=== PATIENT | male | born 1965 | race Caucasian/White ===

== ENCOUNTER 2022-08-04 12:03 | Outpatient (CLI) | payer OTHER, SELFPAY ==
--- OUTSIDE RECORDS SUMMARY | 2022-08-04 12:06 | XMS_ITS | Encounter Summary ---
:1965 Author Organization [facility] Address [address] [place] [address] Care Team Providers Name Role Phone Unavailable Primary Care Provider Unavailable Encounter Details Date Type Department Care Team Description 10/30/2019 Travel Social History Tobacco Use Types Packs/Day Years Used Date Never Smoker Smokeless Tobacco: Never Used Alcohol Use Standard Drinks/Week Comments Not Asked 0 (1 standard drink = 0.6 oz pure alcoho l) Sex Assigned at Date Recorded Not on file documented as of this encounter Plan of Treatment Not on filedocumented as of this encounter Visit Diagnoses Not on filedocumented in this encounter
--- OUTSIDE RECORDS SUMMARY | 2022-08-04 12:06 | XMS_ITS | Encounter Summary ---
:[address] [facility] Address [address] [place] [address] Care Team Providers Name Role Phone Unavailable Primary Care Provider Unavailable Reason for Visit Appointment Request (Routine) - Closed Specialty Diagnoses / Procedures Referred By Contact Refer red To Contact Cardiovascular Surgery Diagnoses Mitral Valve Acquired Disorder Referral ID Status Reason Start Date Expiration Date Visits Requ ested Visits Authorized [id number] Closed 03/11/2022 03/11/2023 1 Encounter Details Date Type Department Care Team Description 03/17/2022 Virtual Visit Department of Emmanuelle Dickinson Regurgita tion Mitral (Primary Dx); Cardiovascular Surgery M, P[facility] 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 [address] Myocarditis (HCC); [address] [place], [place] Pericarditis (HCC); [place] [address] Non-ST Elevation Myocardial Infarction ( HCC); [id number] Post COVID-19 Condition; Hypertension Essential Primary Social History Tobacco Use Types Packs/Day Years Used Date Smoking Tobacco: Never Alcohol Use Standard Drinks/Week Comments Not Currently 0 (1 standard drink = 0.6 oz pure alcoho l) Sex Assigned at Date Recorded Not on file documented as of this encounter Progress Notes Emmanuelle Dickinson, PAugustAAugust - 03/17/2022 8:45 AM CDT Akash Del Castillo : 1965 Visit Date: 03/17/22 [id number] VISIT A phone call care discussion with Mr. Del Castillo in the setting of the national COVID 19 pandemic was completed consistent with [facility] institutional direction. This is a review of outside medical records, including Care Everywhere, image acquisition and viewing, collaboration and communication with internal subspecialists as well as communication with primary care, and referring providers when indicated. This is a review of outside records to be reviewed and confirmed at the time of [id number] appointment. Currently a visit has not yet been scheduled. The patient and his were present for a consult via real-time audio technology by Emmanuelle BALL on March 17, 2022. REFERRING PHYSICIAN: self-referred Home manager culinary: Uche Marks MD?? [address]?? [address]?? [place] [address]? Home primary care provider: Teja Huff MD (2020June 2020 - Present) [address] [place] [address] [facility] SUBJECTIVE CHIEF COMPLAINT / REASON FOR CONSULT An appointment has been requested for consideration of surgical intervention. I am contacting the patient today for discussion and review of the outside medical record. HISTORY OF PRESENT ILLNESS Mr. Del Castillo is a 56 y.o. male with severe mitral valve regurgitation. A murmur was initially heard 20 or 25 years ago and he has had follow-up for mitral valve prolapse approximately every 5 years. His echocardiogram in 2020 showed mild mitral valve regurgitation. He developed COVID-19 in October 2021. 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 A three-month course of colchicine was initiated. His echocardiogram 12/17/2021 showed a myxomatous mitral valve with bileaflet prolapse and flail anterior segment with severe regurgitation and a normal sized left ventricle with an ejection fraction of 50-55%. His cardiac MRI 03/02/2022 shows severe mitral valve regurgitation with bileaflet prolapse and partial flail of the anterior leaflet, a severely enlarged left atrium, and LV scar size of 2% of LV mass, epicardial late gadolinium enhancement in the basalinferior and inferolateral nelson consistent prior myocarditis He currently has symptoms of shortnessof breath and 1 episode presyncope with exertion, severe fatigue, and PND. He feels a fullness in his chest when he walks slowly and his heart rate increases to 106-112. He denies orthopnea. He has hadedema in his hands and feet. He did have an episode of atrial fibrillation and underwent a successful cardioversion. He is currently anticoagulated with apixaban. Metoprolol was initiate to treat his hypertension but was changed to losartan due to a resting heart rate of less than 45. Prior to COVID 19, he did work out 5 days a week. He has been evaluated by local cardiac surgeon and states that he was told that mitral valve repair was not possible due to calcification of the leaflets. We discussed both robotic and conventional cardiac surgery to address mitral valve regurgitation. Has a strong preference for a conventional surgical approach and has specifically requested Dr. Gong to review and give recommendations. Other medical history is notable for: Post COVID myocarditis, post COVID pericarditis, hypertension Patient Active Problem Diagnoses Diagnosis ??? Personal History Of Infectious And Parasitic Disease (COVID-19) ??? Post COVID-19 Condition, myocarditis and pericarditis ??? Mitral Valve Prolapse ??? Regurgitation Mitral ??? Gastroesophageal Reflux Disease ??? Hypertension Essential Primary ??? Past Medical History: As above Past Surgical History: Procedure Laterality Date ??? BUNIONECTOMY ??? NASAL SEPTUM SURGERY ??? SKIN LESION EXCISION ??? TONSILLECTOMY Family History Problem Relation Age of Onset ??? Hypertension Mother ??? Hypertension Father ??? Hyperlipidemia Sister Social History . 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 Smoking status: Never ??? Smokeless tobacco: Never Substance Use Topics ??? Alcohol use: None current Allergies Allergen Reactions ??? Penicillins Rash At age 6. Current Medications: ??? apixaban (ELIQUIS) 5 mg tablet, Take 5 mg by mouth 2 (two) times a day. ??? colchicine (COLCRYS) 0.6 mg tablet, Take 0.6 mg by mouth 2 (two) times a day. For 3 months. ??? furosemide (LASIX) 40 mg tablet, Take 40 mg by mouth daily. ??? losartan (COZAAR) 25 mg tablet, Take 25 mg by mouth daily. ??? MULTIVITAMIN ORAL, Take by mouth. REVIEW OF SYSTEMS Negative for seizure, stroke, diabetes, thyroid issues, asthma or other lung problems, sleep apnea, history of blood clotting or bleeding disorders, swallowing problems or history of esophageal stricture, history of stomach ulcer or bleed, bowel concerns, liver or kidney issues, difficulty with urination, prostate enlargement, muscle or joint problems. Patient is able to perform activities of daily living without assistance. No reported skin alterations. The patient has not had previous difficultieswith anesthesia. No steroids or blood transfusions within the last three months. Denies history of anemia . No unaddressed pain or mental health concerns. Reports routine dental care. Last on 07/2021 OBJECTIVE DIAGNOSTICS MR cardiac 03/02/2022 1. Mitral valve is myxomatous with bileaflet prolapse, now with partial flail of the anterior leaflet (A2) which is new since the CMR scan from 12/14/2021 on side by side image comparison. There is severe mitral regurgitation with an eccentric posteriorly directed jet. Mitral regurgitant volume 85 ml. Mitral regurgitant fraction 54 %. 2. Quantitative LVEF 66 %. LV systolic function is normal. LV cavity is moderately enlarged. There is mild eccentric LVH. 3. There is epicardial late gadolinium enhancement again noted in the basal inferior and inferolateral nelson consistent with prior myocarditis as seen on the prior CMR scan. No myocardial infarction or amyloidosis. LV scar size is 2% of LV mass. No diffuse fibrosis on extracellular volume (ECV) measures. No myocardial iron overload or Fabry???s disease. ??No thrombus. No edema. 4. Quantitative RVEF 53 %. RV systolic function is normal. RV cavity size is normal. 5. No pericardial or pleural effusions. 6. LA is severely enlarged. Transesophageal Echocardiogram 12/17/2021 Final Impressions: ??1. Normal left ventricular size, low normal global systolic function with an estimated EF of 50 - 55%. ??2. Right ventricular cavity size is normal, global systolic RV function is normal. ??3. The mitral valve is myxomatous with bileaflet prolapse and flail anterior leaflet segment (A2)with severe, posteriorly-directed jet of mitral regurgitation. ??4. Tricuspid valve is myxomatous with mild prolapse and trace tricuspid insuffiency. ??5. Atrial septum is intact by color Doppler. ??6. No evidence of thrombus present in the left atrial appendage. Echocardiogram 12/14/2021 ??1. Normal LV size, normal wall thickness, normal global systolic function with an estimated EF of65 - 70%. ??2. Mild mitral valve prolapse. ??3. The mitral valve is myxomatous, moderate to severe mitral regurgitation. ??4. There is an anterior flail mitral leaflet with likely severe MR, likely mild degree of Mitral annular dysjunction. ??5. Recommend transesophageal echocardiography, if clinically indicated. Coronary angiogram 12/14/2021 reportedly normal per outside cardiology note 02/19/2022 ECG 12/17/2021 Ventricular rate 59 Sinus bradycardia Otherwise normal ECG CT chest 12/16/2021 1. No acute pulmonary embolism. 2. Small pleural effusions bilaterally. 3. Areas of dense atelectasis within the lung bases. 4. Within the upper lobes, there is ground-glass opacity with considerations including pulmonary edema versus pneumonitis. Labs: 12/18/2021 hemoglobin 14.7. ASSESSMENT / PLAN #1 Regurgitation Mitral #2 Mitral Valve Prolapse #3 Myocarditis (HCC) #4 Pericarditis (HCC) #5 Post COVID-19 Condition #6 Hypertension Essential Primary I have discussed mitral valve regurgitation with the patient in detail. We have discussed indications for surgery and options for surgical intervention. We have discussed and compared both a sternal approach and robotic approach. We discussed the hospital stay, recovery, and restrictions with both approaches. We also discussed valve repair versus valve replacement. We discussed valve types should valve replacement be necessary and the need for anticoagulation in the event of valve replacement with a mechanical valve. With regards to robotic mitral valve repair, I have explained that our robotic mitral repair program offers a mortality less than 1%, repair rate more than 95%, and 5-8% recurrence of mitral regurgitation in the next 10 years. I have explained that we have published our results fromour robotic program which is more than a decade old. We also discussed our two-surgeon approach to robotic mitral valve repair, which is unique to [facility]. Questions have been answered to the best of my ability. I have shared with the patient that following our virtual visit today, our office will obtain records and then we will send a summary to the surgeon to review.Once the surgeon has reviewed, a phone call or video visit will be arranged between the patient and the surgeon to discuss his recommendations for surgery. We then will work with the patient to schedule an appointment time and date for the onsite preoperative visit and reserve a surgical date if appropriate. Follow-up and testing: I will forward records to Dr. Gong for review and recommendations. I have requested additional outside records, which include: none Send to surgeon prior to imaging be obtained: No Thank you for the opportunity to participate in the care of this patient. Billing: I spent 120 minutes in provider care coordination, discussion with the patient, review of available records and testing, and follow up. Marisabel Marshall David Gong M.D. - 03/17/2022 8:45 AM CDT I have reviewed the documentation and imaging available. His history is quite perplexing having mildMR in 2020 but now severe MR. I am happy to see the patient, but I recommend a cheyenne JARED prior to my visit. Thank you Ysabel Lewis - 03/17/2022 8:45 AM CDT Patient is staying locally for testing/surgery documented in this encounter Miscellaneous Notes Addendum Note - Marah Wade P.A.-C. - 03/17/2022 8:45 AM CDT Addended by: MARAH WADE on: 03/31/2022 04:46 PM Modules accepted: Orders documented in this encounter Plan of Treatment Not on filedocumented as of this encounter Visit Diagnoses Diagnosis Regurgitation Mitral - Primary Mitral Valve Prolapse Myocarditis (HCC) Pericarditis (HCC) Non-ST Elevation Myocardial Infarction ( HCC) Post COVID-19 Condition Hypertension Essential Primary documented in this encounter
--- OUTSIDE RECORDS SUMMARY | 2022-08-04 12:06 | XMS_ITS | Encounter Summary ---
:1965 Author Organization [facility] Address [address] [place] [address] Care Team Providers Name Role Phone Unavailable Primary Care Provider Unavailable Reason for Visit Reason Comments Skin Check Encounter Details Date Type Department Care Team Description 10/30/2019 Office Visit [facility] Julianna Oviedo Nevu s (Primary Dx); Clinic [place] [facility]ICHARDSON Seborrheic keratosis; [place] [address] [place]; [address] [address] Angioma of skin [place], [place] [phone] (Work) [phone] Social History Tobacco Use Types Packs/Day Years Used Date Never Smoker Smokeless Tobacco: Never Used Tobacco Cessation: Counseling Given: Yes Alcohol Use Standard Drinks/Week Comments Not Asked 0 (1 standard drink = 0.6 oz pure alcoho l) Sex Assigned at Date Recorded Not on file documented as of this encounter Last Filed Vital Signs Vital Sign Reading Time Taken Comments Blood Pressure 124/79 10/30/2019 2:[address] SUPERVISOR Pulse 69 10/30/2019 2:[address] SUPERVISOR Temperature - - Respiratory Rate - - Oxygen Saturation 97% 10/30/2019 2:[address] SUPERVISOR Inhaled Oxygen Concentration - - Weight - - Height - - Body Mass Index - - documented in this encounter Progress Notes Julianna Oviedo PA-C - 10/30/2019 2:30 PM CST HPI: Chief complaints: Akash Del Castillo is a 53 year old male who presents for Full skin cancer screening to rule out skin cancer Last Skin Exam: long, long time 1st Baseline: YES Personal HX of Skin Cancer: none Personal HX of Malignant Melanoma: none Family HX of Skin Cancer / Malignant Melanoma: father with BCC Personal HX of Atypical Moles: none Risk factors: sun exposure, frequent sun exposure in his youth, 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 Traveling to [place] for 10 days in October, will travel on cruise. On review of systems, there are no further skin complaints, patient is feeling otherwise well. See patient intake sheet. ROS of the following were done and are negative: Constitutional, Eyes, Ears, Nose, Mouth, Throat, Cardiovascular, Respiratory, GI, Genitourinary, Musculoskeletal, Psychiatric, Endocrine, Allergic/Immunologic. This document serves as a record of the services and decisions personally performed and made by Julianna Oviedo, MS, PA-C. It was created on her behalf by Mague Richards, a trained behavioral medical director. The creation of this document is based on the provider's statements to the behavioral medical director. Mague Richards 2:38 PM October 30, 2019 PHYSICAL EXAM: BP 124/79 Pulse 69 SpO2 97% Skin exam performed as follows: Type 2 skin. Mood appropriate Alert and Oriented X 3. Well developed, well nourished in no distress. General appearance: Normal Head including face: Normal Eyes: conjunctiva and lids: Normal Mouth: Lips, teeth, gums: Normal Neck: Normal Chest-breast/axillae: Normal Back: Normal Spleen and liver: Normal Cardiovascular: Exam of peripheral vascular system by observation for swelling, varicosities, edema:Normal Genitalia: groin, buttocks: Normal Extremities: digits/nails (clubbing): Normal Eccrine and Apocrine glands: Normal Right upper extremity: Normal Left upper extremity: Normal Right lower extremity: Normal Left lower extremity: Normal Skin: Scalp and body hair: See below Pt deferred exam of breasts, groin, buttocks: No Other physical findings: 1. Multiple pigmented macules on extremities and trunk 2. Multiple pigmented macules on face, trunk and extremities 3. Multiple vascular papules on trunk, arms and legs 4. Multiple scattered keratotic plaques Except as noted above, no other signs of skin cancer or melanoma. ASSESSMENT/PLAN: Benign Full skin cancer screening today. Patient with history of none Advised on monthly self exams and 1 year Patient Education: Appropriate brochures given. 1. Multiple benign appearing nevi on arms, legs and trunk. Discussed ABCDEs of melanoma and sunscreen. 2. Multiple lentigos on arms, legs and trunk. Advised benign, no treatment needed. 3. Multiple scattered angiomas. Advised benign, no treatment needed. 4. Seborrheic keratosis on arms, legs and trunk. Advised benign, no treatment needed. 5. Akash to follow up with Primary Care provider regarding elevated blood pressure. Follow-up: yearly FSE/PRN sooner 1.) Patient was asked about new and changing moles. YES 2.) Patient received a complete physical skin examination: YES 3.) Patient was counseled to perform a monthly self skin examination: YES Scribed By: Mague Richards, Fixed Wing Aircraft Flight Mechanic The information in this document, created by the behavioral medical director for me, accurately reflects the services I personally performed and the decisions made by me. I have reviewed and approved this document for accuracy prior to leaving the patient care area. October 30, 2019 2:42 PM Julianna Oviedo MS, KELLYC T OF WAY SUPERVISOR documented in this encounter Plan of Treatment Not on filedocumented as of this encounter Visit Diagnoses Diagnosis Nevus - Primary Benign neoplasm of skin, site unspecifie d Seborrheic keratosis Other seborrheic keratosis [place] Other dyschromia Angioma of skin Hemangioma of skin and subcutaneous tiss ue documented in this encounter
--- OUTSIDE RECORDS SUMMARY | 2022-08-04 12:06 | XMS_ITS | Encounter Summary ---
:1965 Author Organization [facility] Address [address] [place] [address] Care Team Providers Name Role Phone Unavailable Primary Care Provider Unavailable Reason for Visit Reason Comments Laceration lt 4th finger smashed betwee n 2 boulders 3 days ago,has laceration and swelling Encounter Details Date Type Department Care Team Description 06/17/2014 Office Visit [facility] Angela Person Finger i njury, left, initial encounter (Primary Dx); Urgent Care Selina Bowser MD Fracture, finger, open, initial encounte r [address] [id number] [phone] Social History Tobacco Use Types Packs/Day Years Used Date Never Smoker Smokeless Tobacco: Never Used Alcohol Use Standard Drinks/Week Comments Not Asked 0 (1 standard drink = 0.6 oz pure alcoho l) Sex Assigned at Date Recorded Not on file documented as of this encounter Last Filed Vital Signs Vital Sign Reading Time Taken Comments Blood Pressure 100/64 06/17/2014 12:39 PM CDT Pulse - - Temperature 36.8 ??C (98.2 ??F) 06/17/2014 12:39 PM CDT Respiratory Rate - - Oxygen Saturation - - Inhaled Oxygen Concentration - - Weight 78 kg (172 lb) 06/17/2014 12:39 PM CDT Height - - Body Mass Index - - documented in this encounter Progress Notes Angela Person MD - 06/17/2014 1:50 PM CDT SUBJECTIVE: Chief Complaint Patient presents with ??? Laceration lt 4th finger smashed between 2 boulders 3 days ago,has laceration and swelling Akash Del Castillo is a 48 year old male who presents with a chief complaint of left 4th finger pain, swelling, tenderness and decreased range of motion and persistent bleeding. The injury occurred 3 day(s) ago. The injury happened while at home. How: crushed between rocks he was hauling ,immediate pain, immediate swelling, no deformity was noted by the patient. The patient complained of moderate pain and has had decreased ROM. Pain exacerbated by flexion/extension. Relieved by rest. He treated it initially with no therapy. This is the first time this type of injury has occurred to this patient. No past medical history on file. Current Outpatient Prescriptions Medication Sig Dispense Refill ??? sulfamethoxazole-trimethoprim (BACTRIM DS,SEPTRA DS) 800-160 MG per tablet Take 1 tablet by mouth 2 times daily 20 tablet 0 History Substance Use Topics ??? Smoking status: Never Smoker ??? Smokeless tobacco: Never Used ??? Alcohol Use: Not on file ROS: INTEGUMENTARY/SKIN: NEGATIVE for worrisome rashes, moles or lesions EYES: NEGATIVE for vision changes or irritation ENT/MOUTH: NEGATIVE for ear, mouth and throat problems RESP:NEGATIVE for significant cough or SOB GI: NEGATIVE for nausea, abdominal pain, heartburn, or change in bowel habits EXAM: BP 100/64 Temp(Src) 98.2 ??F (36.8 ??C) (Oral) Wt 172 lb (78.019 kg) Gen: healthy,alert,no distress Extremity: left 4th finger(s) distal phalanyx has erythema, swelling, pain with palpation and open wound 1 cm x 5 mm deep longitudinal of palmar surface distal finger. Flexion/ extension of DIP joint intact - Flexion/ extension of PIP joint intact - Flexion/ extension of MCP joint intact- Motor and sensory function of the finger proximal and distal to the injury are intact There is not compromise to the distal circulation. Capillary refill 3 seconds Pulses are +2 GENERAL APPEARANCE: healthy, alert and no distress,EXTREMITIES: peripheral pulses normal,NEURO: Normal strength and tone, sensory exam grossly normal, mentation intact and speech normal X-RAY was done. Comminuted fracture of distal phalanyx of left 4th finger ASSESSMENT: (959.5) Finger injury, left, initial encounter (primary encounter diagnosis) Comment: Plan: XR Finger Left G/E 2 Views (816.10) Fracture, finger, open, initial encounter Comment: Plan: sulfamethoxazole-trimethoprim (BACTRIM DS,SEPTRA DS) 800-160 MG per tablet Has splint at home Soaked in hibiclens and bandaged Acetaminophen/ ibuprofen as alternative for pain Return if worsening pain, loss of blood flow to the finger (finger dark and cool), or if redness/ swelling is worsening and spreading proximally Follow-up with ortho hand- Given info [facility] Tetanus up to date Given copy of x-ray documented in this encounter Nursing Notes Sneha Bucriaga LPN - 06/17/2014 12:40 PM CDT Chief Complaint Patient presents with ??? Laceration lt 4th finger smashed between 2 boulders 3 days ago,has laceration and swelling Initial BP 100/64 Temp(Src) 98.2 ??F (36.8 ??C) (Oral) Wt 172 lb (78.019 kg) There is no height on file to calculate BMI.. BP completed using cuff size: dawson Burciaga LPN documented in this encounter Plan of Treatment Not on filedocumented as of this encounter Visit Diagnoses Diagnosis Finger injury, left, initial encounter - Primary Fracture, finger, open, initial encounte r documented in this encounter
--- OUTSIDE RECORDS SUMMARY | 2022-08-04 12:06 | XMS_ITS | Clinical Summary ---
:1965 Author Organization [facility] Address [address] [place] [address] Care Team Providers Name Role Phone Unavailable Primary Care Provider Unavailable Source Comments Patient records contain information from all sites at [facility]. For routine questions regarding patient records, call [phone] during business hours, M-F 8:00 AM - 5:00 PM Central Time. Record requests for emergency care only can be directed to [phone] at any time.[facility] Allergies Active Allergy Reactions Severity Noted Date Comments Penicillins Rash 03/17/2022 At age 6. Medications Medication Sig Dispensed Refills Start Date End Date Status apixaban (ELIQUIS) 5 mg Take 5 mg by 0 Active tablet mouth 2 (two) times a day. colchicine (COLCRYS) 0.6 Take 0.6 mg by 0 Active mg tablet mouth 2 (two) times a day. For 3 months. furosemide (LASIX) 40 mg Take 40 mg by 0 Active tablet mouth daily. MULTIVITAMIN ORAL Take by mouth. 0 Active losartan (COZAAR) 25 mg Take 25 mg by 0 Active tablet mouth daily. 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 Family History Medical History Relation Name Comments Hypertension Father Hypertension Mother Hyperlipidemia Sister Relation Name Status Comments Father Mother Sister Social History Tobacco Use Types Packs/Day Years Used Date Smoking Tobacco: Never Alcohol Use Standard Drinks/Week Comments Not Currently 0 (1 standard drink = 0.6 oz pure alcoho l) Sex Assigned at Date Recorded Not on file Plan of Treatment Health Maintenance Due Date Last Done Comments CT Colonography 1966 Cologuard 1965 Colonoscopy 1966 Colorectal Cancer Screening 1966 FIT 1966 HIV Screening 1966 Hepatitis B Vaccines (1 of 1966 3 - 3-dose series) Hepatitis C Screening 1966 Office Visit for Blood 1966 Pressure Check / Re-check Zoster Vaccines (2 of 2) 12/29/2020 11/03/2020 Depression Screening 10/31/2021 (Annual PHQ-2) COVID-19 Vaccine (4 - 03/23/2022 01/26/2022, 02/07/2021, Booster for Pfizer series) 01/17/2021 Influenza Vaccine (#1) 2022 08/09/2019, 09/27/2017, 09/16/2011 Lipid (Cholesterol) 12/15/2022 12/15/2021 Screening Creatinine Level 12/17/2022 12/17/2021, 12/16/2021, 12/13/2021 Sodium Level 12/17/2022 12/17/2021, 12/16/2021, 12/13/2021 Potassium Level 04/20/2023 04/20/2022, 04/15/2022, 12/18/2021, Additional history exists Fasting Glucose for 04/20/2025 04/20/2022, 12/17/2021, Diabetes Screening 12/16/2021, Additional history exists DTaP,Tdap,and Td Vaccines 09/27/2027 09/27/2017, 08/22/2007 , (5 - Td or Tdap) 07/02/1997, Additional history exists Pneumococcal vaccine (0-64 Aged Out No lo nger eligible years) based on patient 's age to complete this topic Insurance Payer Benefit Plan / Subscriber ID Effective Phone Address T ype Group Dates [facility] [id number] 2018-Pres [phone] [address] PPO OPEN ACCESS ent [address] [place] [address]
[2022-08-04 13:09] LABS: Troponin I* < 0.01 ng/mL (0.01-0.04)
== END 2022-08-04 12:04 | disposition home or self-care (01) ==
LOC: NFLDREF 12:04
PROVIDERS: PCP Family Medicine; Visit Provider Family Medicine
DX: R07.9 Chest pain, unspecified (principal)
CPT/HCPCS: 84484

== ENCOUNTER 2022-08-13 10:54 | Outpatient (CLI) | payer OTHER, SELFPAY ==
--- OUTSIDE RECORDS SUMMARY | 2022-08-13 11:02 | XMS_ITS | Clinical Summary ---
:1965 Author Organization [facility] [place] [address] Care Team Providers Name Role Phone Teja Huff MD Primary Care Provider [phone] Allergies Active Allergy Reactions Severity Noted Date Comments Penicillins *Unknown 12/13/2021 Medications Medication Sig Dispensed Refills Start Date End Date Status multivitamin (MVI) Take 1 Tablet by 0 Active tablet mouth once daily. diphenhydrAMINE Take 25 mg by mouth 0 Active (BENADRYL) 25 mg every 6 hours if capsule needed. acetaminophen Take 1-2 Tablets 0 04/25/2022 Active (TYLENOL EXTRA (500-1,000 mg) by STRGTH) 500 mg mouth every 6 hours tabletIndications: if needed for Pain. S/P MVR (mitral valve Max acetaminophen repair) dose: 4000mg in 24 hrs. aspirin (ECOTRIN) 81 Take 1 Tablet (81 0 04/26/2022 Active mg enteric coated mg) by mouth once tabletIndications: daily with a meal. S/P MVR (mitral valve repair) loratadine (Claritin) Take 1 Tablet (10 0 05/18/2022 Active 10 mg tablet mg) by mouth once daily. apixaban (ELIQUIS) 5 Take 1 Tablet (5 120 Tablet 0 05/18/2022 Active mg tabletIndications: mg) by mouth in the S/P MVR (mitral valve morning and 1 repair) Tablet (5 mg) in the evening. metoprolol tartrate Take 1 Tablet (25 60 Tablet 4 05/24/2022 Active (LOPRESSOR) 25 mg mg) by mouth in the tabletIndications: morning and 1 S/P MVR (mitral valve Tablet (25 mg) in repair) the evening. Active Problems Problem Noted Date S/P MVR (mitral valve repair) 04/20/2022 Overview: Mitral Valve Repair: Lemuel Dumont Physio II Annuloplast y Ring 36 mm by [employer]. Model 5200, SN [id number], Exp 01/26/2027. Implanted by Dr. Tesfaye on 04/20/2022. neocords Pericarditis 12/15/2021 Bilateral pulmonary infiltrates on chest x-ray 022 Post covid-19 condition, unspecified 12/14/2021 Mitral valve prolapse 12/14/2021 GERD (gastroesophageal reflux disease) 12/14/2021 Encounters Date Type Specialty Care Team Description 05/28/2022 Hospital Encounter Teja Huff MD 05/28/2022 Travel 05/26/2022 Hospital Encounter Teja Huff MD 05/26/2022 Hospital Encounter Kemi Neumann S/P MVR (mitral valve Beth, PA repair) 05/25/2022 Orders Only Lab, [facility] 05/25/2022 Travel 05/24/2022 Hospital Encounter Teja Huff MD 05/24/2022 Orders Only Kemi Neumann <No scans attached> QUINN Campos 05/21/2022 Hospital Encounter Teja Huff MD 05/21/2022 Travel 05/19/2022 Office Visit Kemi Neumann CV Valve Est (Lauren- QUINN Arthur Sternal Poppin g- s/p 04/20//PCP: Teja Oglesby MD //) 05/19/2022 Hospital Encounter Kemi Neumann S/P MVR (mitral valve Beth, PA repair) 05/19/2022 Travel 05/18/2022 Office Visit Uche Marks CV General C enrique Nathan MD Est (F/U from s urgery. Pt. states feel ing some popping in ch est. Questions about limitations. ) 05/18/2022 Telephone Kassi Macario, SPREADER sterna l popping/clicking 05/18/2022 Orders Only EngJac wilson <No scans attached> 05/17/2022 Hospital Encounter Teja Huff MD 05/17/2022 Travel 05/14/2022 Hospital Encounter Teja Huff MD 05/13/2022 Telephone Teja Huff [facility] tiffany Keller MD from Last 3 Months Family History Medical History Relation Name Comments Hyperlipidemia Brother Hypertension Father Hypertension Mother Relation Name Status Comments Brother Father Mother Social History Tobacco Use Types Packs/Day Years Used Date Never Smoker Smokeless Tobacco: Never Used Alcohol Use Standard Drinks/Week Comments Yes 0 (1 standard drink = 0.6 oz pure alcoho l) rare Alcohol Habits Answer Date Recorded How often do you have a drink containing alcohol? Not asked How many drinks containing alcohol do you have on a typical Not asked day when you are drinking? How often do you have six or more drinks on one occasion? No t asked Comment: rare 05/18/2022 Sex Assigned at Date Recorded Not on file Obstetrics History Last Filed Vital Signs Vital Sign Reading Time Taken Comments Blood Pressure 127/81 05/19/2022 2:35 PM CDT Pulse 71 05/19/2022 2:35 PM CDT Temperature 36.5 ??C (97.7 ??F) 04/25/2022 7:55 AM CDT Respiratory Rate 20 05/07/2022 11:00 AM CDT Oxygen Saturation 96% 05/19/2022 2:35 PM CDT Inhaled Oxygen Concentration - - Weight 79.7 kg (175 lb 9.6 oz) 05/19/2022 2:35 PM CDT Height 177.8 cm (5' 10) 05/19/2022 2:35 PM CDT Body Mass Index 25.2 05/19/2022 2:35 PM CDT Plan of Treatment Health Maintenance Due Date Last Done Comments Tdap 1977 Hepatitis C screening for age 0111/27/1984 18-79 Tetanus booster 1986 Colonoscopy through age 75 2011 Zoster (shingles) series for age 0111/27/2016 50+ (1 of 2) COVID-19 vaccine series (4 - 03/23/2022 01/26/2022, 021, Booster for Pfizer series) 01/17/2021 Influenza for age 50-64 07/01/2022 Depression screening for age 12+ 05/10/2023 05/10/2022, 05/2022 BMI (ht and wt on same day) for 05/19/2023 05/19/2022, 04/30, age 18+ 04/15/2022, Additional history exists Lipids for age 45-75 12/15/2026 12/15/2021 Medical Devices Implanted Type Area Personnel Research Scientist Device Shelf Model / Identifier Expiration Serial / Date Lot Ring Mitral 36mm Physio Ii - [id number] N/A: Dumont 01/26/2027 [id number] / Implanted: Qty: 1 on 04/20/2022 by Caden Tesfaye MD at [employer] Mitral [employer] / Valve Darlene [id number] Procedures Procedure Name Priority Date/Time Associated Comments Diagnosis SCAN-CARDIAC 05/28/2022 12:00 Results for this REHABILITATION AM CDT procedure are in the results section. CT CHEST WO PREM 05/26/2022 9:56 S/P MVR (mitral Results f or this AM CDT valve repair) procedure are in the results section. SCAN-CARDIAC 05/26/2022 12:00 Results for this REHABILITATION AM CDT procedure are in the results section. BASIC METABOLIC PANEL Routine 05/25/2022 9:31 S/P MVR (mitral Results for this AM CDT valve repair) procedure are in the results section. SCAN-CARDIAC 05/24/2022 12:00 Results for this REHABILITATION AM CDT procedure are in the results section. SCAN-CARDIAC 05/21/2022 12:00 Results for this REHABILITATION AM CDT procedure are in the results section. XR CHEST 2 VIEWS PA AND STAT 05/19/2022 2:28 S/P MVR (emily l Results for this LATERAL PM CDT valve repair) procedure are in the results section. EKG 12 LEAD Routine 05/18/2022 8:57 S/P MVR (mitral Results f or this AM CDT valve repair) procedure are in Routine adult the results health maintenance section. SCAN-CARDIAC 05/17/2022 12:00 Results for this REHABILITATION AM CDT procedure are in the results section. SCAN-CARDIAC 05/17/2022 12:00 Results for this REHABILITATION AM CDT procedure are in the results section. SCAN-CARDIAC 05/14/2022 12:00 Results for this REHABILITATION AM CDT procedure are in the results section. from Last 3 Months Results SCAN-CARDIAC REHABILITATION (05/28/2022 12:00 AM CDT)Only the most recent of7 resultswithin the time period is included. Narrative 05/28/2022 12:00 AM CDT This result has an attachment that is no t available. Ordered by an unspecified provider. Other Clinical Staff OTHER CT CHEST WO (05/26/2022 9:56 AM CDT) Anatomical Region Laterality Modality CHEST, THORAX, HEART Computed Tomography Specimen (Source) Anatomical Collection Method Collection Time Re ceived Time Location / / Volume Laterality 05/26/2022 10:09 AM CDT Impressions 05/26/2022 10:09 AM CDT 1. Postsurgical changes of sternotomy. The sternotomy wires appear intact. 2. Persistent visualization of the del rio otomy without broad or mature union as of yet. 3. Mitral valve replacement. 4. Small left pleural effusion with left basilar atelectasis. Please note that all CT scans at this [facility] use dose modulation, iterative reconstruction, and/or weight-based dosing when appropriate to reduce radiation dose to as low as reasonably achievable. Dictated by Tomer Sainz MD @ 022 10:09:00 AM (Electronically Signed) Narrative 05/26/2022 10:09 AM CDT For Patients: ??As a result of the Cures Act, medical imaging exams and procedure report s are released immediately into your [facility] medical record. ??You may view this report before your referring provider. ??If you have questions, please contact your health care provider. HISTORY: Mitral valve replacement. Sternal nonuni on. TECHNIQUE: Noncontrast chest CT. COMPARISON: Chest CT from 12/16/2021. FINDINGS: Patient is status post sternotomy. The s ternal wires appear intact. There is persistent visualization of the sternotomy at the level of the manubrium and body without mature or broad union. There is no anterior mediastinal fluid collection. A small amount of pericardial fluid is present. Patient is status post mitral valve replacement. No thoracic aortic aneurysm. - No enlarged mediastinal or hilar lymph n odes. No enlarged axillary lymph nodes. - Small left pleural effusion with left ba silar atelectasis. Mild postinflammatory changes at the lung apices. Calcified granuloma left lung apex. Linear atelectasis or scarring within the right lower lobe. No pneumothorax. - Degenerative changes of the spine. No ac chenega fractures. Procedure Note Tomer Sainz MD - 2 For Patients: As a result of the nt[place] Cures Act, medical imaging exams and procedure reports are released immediately into your electronic medical record. You may view this report before your referring provider. If you have questions, please contact [facility] care provider. HISTORY: Mitral valve replacement. Sternal nonuni on. TECHNIQUE: Noncontrast chest CT. COMPARISON: Chest CT from 12/16/2021. FINDINGS: Patient is status post sternotomy. The s ternal wires appear intact. There is persistent visualization of the sternotomy at the level of the manubrium and body without mature or broad union. There is no anterior mediastinal fluid collection. A small am ount of pericardial fluid is present. Patient is status post mitral valve replacement. No thoracic aortic aneurysm. - No enlarged mediastinal or hilar lymph n odes. No enlarged axillary lymph nodes. - Small left pleural effusion with left ba silar atelectasis. Mild postinflammatory changes at the lung apices. Calcified granuloma left lung apex. Linear atelectasis or scarring within the right lower lobe. No pneumothorax. - Degenerative changes of the spine. No ac chenega fractures. IMPRESSION: 1. Postsurgical changes of sternotomy. T he sternotomy wires appear intact. 2. Persistent visualization of the del rio otomy without broad or mature union as of yet. 3. Mitral valve replacement. 4. Small left pleural effusion with left basilar atelectasis. Please note that all CT scans at this [facility] use dose modulation, iterative reconstruction, and/or weight-based dosing when appropriate to reduce radiation dose to as low as reasonably achievable. Dictated by Tomer Sainz MD @ 022 10:09:00 AM (Electronically Signed) Kemi BALL CT (ABNORMAL) BASIC METABOLIC PANEL (05/25/2022 9:31 AM CDT) athologist Signature SODIUM 139 135 - 145 05/25/2022 [facility] mmol/L 5:17 PM CDT [facility] POTASSIUM 4.3 3.5 - 5.0 05/25/2022 [facility] mmol/L 5:17 PM CDT [facility] CHLORIDE 101 98 - 110 05/25/2022 [facility] mmol/L 5:17 PM CDT [facility] CO2,TOTAL 30 21 - 31 05/25/2022 [facility] mmol/L 5:17 PM CDT [facility] ANION GAP 8 5 - 18 05/25/2022 [facility] 5:17 PM CDT [facility] GLUCOSE 66 65 - 100 05/25/2022 [facility] mg/dL 5:17 PM CDT [facility] CALCIUM 9.6 8.5 - 10.5 05/25/2022 [facility] mg/dL 5:17 PM CDT [facility] BUN 13 8 - 25 05/25/2022 [facility] mg/dL 5:17 PM CDT [facility] CREATININE 1.06 0.72 - 05/25/2022 [facility] 1.25 mg/dL 5:17 PM CDT [facility] BUN/CREAT RATIO 12 10 - 20 05/25/2022 [facility] 5:17 PM CDT [facility] eGFR 83 (L) >90 05/25/2022 [facility] mL/min/1.7 5:17 PM CDT [facility] Comment: As of 2022, eGFR is calcu lated by the CKD-EPI creatinine equation without race adjustment. eGFR can be inf luenced by muscle mass, exercise, and diet. The reported eGFR is an estimation only and is only applicable if the renal function is stable. Specimen Anatomical Collection Method / Collection Time Recei janelle Time (Source) Location / Volume Laterality Blood BLOOD SPECIMEN / Venipuncture / 05/25/2022 9:31 2021 9:33 Unknown Unknown AM CDT AM CDT Uche Marks MD CHEMISTRY Performing Organization Address City/State/ZIP Code Phon e Number [facility] [address] [place] [address] [facility] 2000 LABORATORY XR CHEST 2 VIEWS PA AND LATERAL (05/19/2022 2:28 PM CDT) Anatomical Region Laterality Modality CHEST, THORAX, Lung, HEART Digital Radio graphy Specimen (Source) Anatomical Collection Method Collection Time Re ceived Time Location / / Volume Laterality 05/19/2022 2:44 PM CDT Impressions 05/19/2022 2:44 PM CDT 1. Small left pleural effusion and left basilar atelectasis. 2. Sternal wires appear intact. 3. No pneumothorax. Dictated by Chucky Espino MD @ May 19 2022 ??2:44PM (Electronically Signed) ?? Narrative 05/19/2022 2:44 PM CDT For Patients: ??As a result of the Cures Act, medical imaging exams and procedure report s are released immediately into your [facility] medical record. ??You may view this report before your referring provider. ??If you have questions, please contact your health care provider. HISTORY: Sternal clicking. Evaluate sternal wires . Evaluate for pleural effusion or pneumothorax. TECHNIQUE: Two-view chest. COMPARISON: Chest x-ray 04/23/2022. FINDINGS: Sternal wires. Wires appear intact. Mitr al valve prosthesis. Small left pleural effusion with left basilar atelectasis. No right pleural effusion. No pneumothorax. No consolidation. Pulmonary vasculatur e is normal. Cardiomediastinal silhouett e size is normal. Procedure Note Chucky Espino MD - 05/19/2022 For Patients: As a result of the Cures Act, medical imaging exams and procedure reports are released immediately into your electronic medical record. You may view this report before your referring provider. If you have questions, please contact [facility] health care provider. HISTORY: Sternal clicking. Evaluate sternal wires . Evaluate for pleural effusion or pneumothorax. TECHNIQUE: Two-view chest. COMPARISON: Chest x-ray 04/23/2022. FINDINGS: Sternal wires. Wires appear intact. Mitr al valve prosthesis. Small left pleural effusion with left basilar atelectasis. No right pleural effusion. No pneumothorax. No consolidation. Pulmonary vasculature is normal. Cardiomediastinal silhouette size is nor mal. IMPRESSION: 1. Small left pleural effusion and left basilar atelectasis. 2. Sternal wires appear intact. 3. No pneumothorax. Dictated by Chucky Espino MD @ May 19 2022 2:44PM (Electronically Signed) [facility] EKG 12 LEAD (05/18/2022 8:57 AM CDT) Component Value Ref Range Test Analysis Performed Pathologis t Method Time At Signature Interpretation Normal sinus rhythm Normal ECG When compared with ECG of 21-APR-2022 06:56, Nonspecific T wave abnormality no longer evident in Inferior leads Nonspecific T wave abnormality now evident in Anterolateral leads Ventricular Rate 61 BPM Atrial Rate 61 BPM P-R Interval 160 ms QRS Duration 92 ms QT 442 ms QTc 444 ms P [place] 74 degrees R [place] 52 degrees T [place] 90 degrees Specimen Anatomical Collection Method Collection Time Receive d Time (Source) Location / / Volume Laterality 05/18/2022 8:57 AM 1:42 CDT PM CDT Uche Marks MD EKG ORD from Last 3 Months Insurance Payer Benefit Plan / Subscriber ID Effective Dates Phone Addre ss Type VFA HP [id number] 2018-Present [address] [place] [address] Advance Directives Latest Code Status on File Code Status Date Activated Date Inactivated Comments Full Code 04/21/2022 10:57 AM 04/25/2022 5:29 PM Code Status Discussion: Reviewed Preferences Full Code 04/20/2022 6:07 AM 04/21/2022 10:57 AM Code Status Discussion: Unable to Assess Preferences, Provid er to review later Full Code 12/13/2021 8:20 PM 12/18/2021 4:05 PM Code Status Discussion: Reviewed Preferences Care Teams Kitchen Runner Relationship Specialty Start Date End Date Teja Huff MD PCP - General Family Practice 04/20/211999 [place] [address]
--- OUTSIDE RECORDS SUMMARY | 2022-08-13 11:02 | XMS_ITS | Clinical Summary ---
:1965 Author Organization [facility] Address [address] [place] [address] Care Team Providers Name Role Phone Unavailable Primary Care Provider Unavailable Allergies Active Allergy Reactions Severity Noted Date Comments Penicillins Rash Low 06/17/2014 Medications No known medications Immunizations Name Administration Dates Next Due Tdap (Adacel,Boostrix) 08/22/2007 Family History Medical History Relation Comments Basal cell carcinoma Father Relation Status Comments Father Social History Tobacco Use Types Packs/Day Years Used Date Smoking Tobacco: Never Smokeless Tobacco: Never Tobacco Cessation: Counseling Given: Yes Alcohol Use Standard Drinks/Week Comments Not Asked 0 (1 standard drink = 0.6 oz pure alcoho l) Sex Assigned at Date Recorded Not on file Last Filed Vital Signs Vital Sign Reading Time Taken Comments Blood Pressure 124/79 10/30/2019 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 Pulse 69 10/30/2019 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 Temperature 36.8 ??C (98.2 ??F) 06/17/2014 12:39 PM CDT Respiratory Rate - - Oxygen Saturation 97% 10/30/2019 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 Inhaled Oxygen Concentration - - Weight 78 kg (172 lb) 06/17/2014 12:39 PM CDT Height - - Body Mass Index - - Plan of Treatment Health Maintenance Due Date Last Done Comments ADVANCE CARE PLANNING 1965 ANNUAL REVIEW OF HM ORDERS 1966 CT COLONOGRAPHY 1966 FIT-DNA (Cologuard) 1966 FIT 1966 FLEX SIG 1966 HEPATITIS B IMMUNIZATION (1 1966 of 3 - 3-dose series) COVID-19 Vaccine (#1) 05/27/1967 COLONOSCOPY 1976 COLORECTAL CANCER SCREENING 1976 HIV SCREENING 1981 HEPATITIS C SCREENING 1984 LIPID 2001 ZOSTER IMMUNIZATION (1 of 2) 2016 DTAP/TDAP/TD IMMUNIZATION (3 08/22/2017 08/22/2007, - Td or Tdap) 07/02/1997 YEARLY PREVENTIVE VISIT 09/27/2018 09/27/2017, 10/21/2016 PHQ-2 (once per calendar 10/31/2021 year) INFLUENZA VACCINE (#1) 2022 08/09/2019, 09/27/2017, 09/16/2011 IPV IMMUNIZATION Aged Out No longer eligi ble based on patient's age to complete this to pic MENINGITIS IMMUNIZATION Aged Out No longe r eligible based on patient's age to complete this to pic Pneumococcal Vaccine: Aged Out No longer eligible based Pediatrics (0 to 5 Years) and on patient's age to At-Risk Patients (6 to 64 comple te this topic Years) Insurance Payer Benefit Plan / Subscriber ID Effective Phone Address T e Group Dates [facility] [id number] 2013-Pres [phone] [address] O OPEN ACCESS ent [address] [place] [address] [phone] (Work)
--- OUTSIDE RECORDS SUMMARY | 2022-08-13 11:02 | XMS_ITS | Encounter Summary ---
:1965 Author Organization [place] Address [address] [place] [address] Care Team Providers Name Role Phone Unavailable Primary Care Provider Unavailable Encounter Details Date Type Department Care Team Description 06/17/2014 Radiant Appointment [facility] Angela Personer injury, Clinic [place] MD Mague left, initial [place] [address] [place] [address] encounter [address] [address] [phone] Social History Tobacco Use Types Packs/Day Years Used Date Smoking Tobacco: Never Smokeless Tobacco: Never Alcohol Use Standard Drinks/Week Comments Not Asked 0 (1 standard drink = 0.6 oz pure alcoho l) Sex Assigned at Date Recorded Not on file documented as of this encounter Plan of Treatment Not on filedocumented as of this encounter Procedures Procedure Name Priority Date/Time Associated Diagnosis Comme nts XR FINGER LEFT G/E Routine 06/17/2014 1:15 PM Finger injury, l eft, Results for this 2 VIEWS CDT initial encounter procedure are in the results section. documented in this encounter Results XR Finger Left G/E 2 Views (06/17/2014 1:15 PM CDT) Anatomical Region Laterality Modality Left Hand Left Computed Radiography Specimen (Source) Anatomical Location Collection Method / Collectio n Time Received Time / Laterality Volume Impressions 06/17/2014 1:32 PM CDT IMPRESSION: Fracture distal phalanx of the ring finger. NÉSTOR MANZANARES MD Narrative 06/17/2014 1:32 PM CDT XR FINGER LT G/E 2 VW 06/17/2014 1:32 PM HISTORY: crush injury,Injury, other and unspecified, finger ? Procedure Note Néstor Manzanares MD - 06/17/2014Formatt ing of this note might be different from the original. XR FINGER LT G/E 2 VW 06/17/2014 1:32 PM HISTORY: crush injury,Injury, other and unspecified, finger IMPRESSION IMPRESSION: Fracture distal phalanx of t he ring finger. NÉSTOR MANZANARES MD Angela Person MD IMG DIAGNOSTIC IMAGING ORDER THANH documented in this encounter Visit Diagnoses Diagnosis Finger injury, left, initial encounter documented in this encounter
--- OUTSIDE RECORDS SUMMARY | 2022-08-13 11:02 | XMS_ITS | Encounter Summary ---
:1965 Author Organization [place] Address [address] [place] [address] Care Team Providers Name Role Phone Unavailable Primary Care Provider Unavailable Reason for Visit Reason Comments Skin Check Encounter Details Date Type Department Care Team Description 10/30/2019 Office Visit [facility] Julianna Oviedo Nevu s (Primary Dx); Clinic [place] RICHARDSON Seborrheic keratosis; [place] [address] [place]; [address] [address] Angioma of skin [place], [place] [phone] (Work) [phone] Social History Tobacco Use Types Packs/Day Years [...] Comments Blood Pressure 124/79 10/30/2019 2:28 PM FIELD COUNSEL Pulse 69 10/30/2019 2:28 PM FIELD COUNSEL Temperature - - Respiratory Rate - - Oxygen Saturation 97% 10/30/2019 2:28 PM FIELD COUNSEL Inhaled Oxygen Concentration - - Weight - [...] 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 Traveling to [place] for 10 days in October, will travel [...] her behalf by Mague Richards, a trained ophthalmic medical assistant. The creation of this document is based on the provider's statements to the ophthalmic medical assistant. Mague Richards 2:38 PM October 30, 2019 [...] skin examination: YES Scribed By: Mague Richards, Gluer The information in this document, created by the ophthalmic medical assistant for me, accurately reflects the services I personally performed and the decisions made by me. I have reviewed and approved this document for accuracy prior to leaving the patient care area. October 30, 2019 2:42 PM Julianna Oviedo, , DEBRA D COUNSEL documented in this encounter Plan of Treatment Not on filedocumented as of this encounter Visit Diagnoses Diagnosis Nevus - Primary Benign neoplasm of skin, site unspecifie d Seborrheic keratosis Other seborrheic keratosis [place] Other dyschromia Angioma of skin Hemangioma of skin and subcutaneous tiss ue documented in this encounter
--- OUTSIDE RECORDS SUMMARY | 2022-08-13 11:02 | XMS_ITS | Clinical Summary ---
:1965 Author Organization [facility] Address [address] [place] [address] Care Team Providers Name Role Phone Unavailable Primary Care Provider Unavailable Source Comments Patient records contain information from all sites at [facility]. For routine questions regarding patient records, call [phone] during business hours, M-F 8:00 AM - 5:00 PM Central Time. Record requests for emergency care only can be directed to [phone] at any time.[facility] Allergies Active Allergy Reactions Severity Noted Date [...] Effective Phone Address T ype Group Dates [facility] [id number] 2018-Pres [phone] [address] PPO OPEN ACCESS ent [address] [place] [address]
--- OUTSIDE RECORDS SUMMARY | 2022-08-13 11:02 | XMS_ITS | Encounter Summary ---
:1965 Author Organization [place] Address [address] [place] [address] Care Team Providers Name Role Phone Unavailable [...]
--- OUTSIDE RECORDS SUMMARY | 2022-08-13 11:02 | XMS_ITS | Encounter Summary ---
:1965 Author Organization [facility] Address [address] [place] [address] Care Team Providers Name Role Phone Unavailable Primary Care Provider Unavailable Reason for Visit Appointment Request (Routine) - Closed Specialty Diagnoses / Procedures Referred By Contact Refer red To Contact Cardiovascular Surgery Diagnoses Mitral Valve Acquired Disorder Referral ID Status Reason Start Date Expiration Date Visits Requ ested Visits Authorized [id number] Closed 03/11/2022 03/11/2023 1 Encounter Details Date Type Department Care Team Description 03/17/2022 Virtual Visit Department of Emmanuelle Dickinson Regurgita tion Mitral (Primary Dx); Cardiovascular Surgery [facility] 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 Del Castillo in the setting of the national COVID 19 pandemic was completed consistent with [facility] institutional direction. This is a review of outside medical records, including Care Everywhere, image acquisition and viewing, collaboration and communication with internal subspecialists as well as communication with primary care, and referring providers when indicated. This is a review of outside records to be reviewed and confirmed at the time of [id number] appointment. Currently a visit has not yet been scheduled. The patient and his were present for a consult via real-time audio technology by Emmanuelle BALL on March 17, 2022. REFERRING PHYSICIAN: self-referred Home denture model maker: Uche Marks MD?? [address]?? [address]?? [place] [address]? Home primary care provider: Teja Huff MD (2020June 2020 - Present) [address] [place] [address] [facility][1] SUBJECTIVE CHIEF COMPLAINT / REASON FOR CONSULT [...] mitral valve repair, which is unique to [facility]. Questions have been answered to the best [...] see the patient, but I recommend a marietta JARED prior to my visit. Thank you [...]
--- OUTSIDE RECORDS SUMMARY | 2022-08-13 11:02 | XMS_ITS | Encounter Summary ---
:1965 Author Organization [facility] Address [address] [place] [address] Care Team Providers Name Role Phone Unavailable Primary Care Provider Unavailable Reason for Visit Reason Comments Laceration lt 4th finger smashed betwee n 2 boulders 3 days ago,has laceration and swelling Encounter Details Date Type Department Care Team Description 06/17/2014 Office Visit [facility] Angela Person Finger i avelino, left, initial encounter (Primary Dx); Urgent Care Selina Bowser MD Fracture, finger, open, initial encounte r [address] [address] [facility] [phone] Social History Tobacco Use Types Packs/Day Years [...] proximally Follow-up with ortho hand- Given info [facility] Ortho Tetanus up to date Given copy of x-ray documented in this encounter Nursing Notes Sneha Burciaga LPN - 06/17/2014 12:40 PM CDT Chief [...]
== END 2022-08-13 10:55 | disposition home or self-care (01) ==
LOC: RAD 10:55
PROVIDERS: PCP Family Medicine; Visit Provider Family Medicine
DX: R53.83 Other fatigue (principal); I34.1 Nonrheumatic mitral (valve) prolapse; R06.09 Other forms of dyspnea
CPT/HCPCS: 93306

== ENCOUNTER 2022-10-08 17:04 | Outpatient (CLI) | payer OTHER, SELFPAY ==
--- OUTSIDE RECORDS SUMMARY | 2022-10-08 17:07 | XMS_ITS | Encounter Summary ---
:1965 Author Organization [place] Address [address] [place] [address] Care Team Providers Name Role Phone Unavailable [...]
--- OUTSIDE RECORDS SUMMARY | 2022-10-08 17:07 | XMS_ITS | Clinical Summary ---
:1965 Author Organization [facility] [place] [address] Care Team Providers Name Role Phone Teja Huff MD Primary Care Provider [phone] Allergies Active Allergy Reactions Severity Noted [...] Annuloplast y Ring 36 mm by [employer]. Model 5200, SN [id number], Exp 01/26/2027. Implanted by Dr. Tesfaye on 04/20/2022. neocords Pericarditis 12/15/2021 Bilateral pulmonary infiltrates on chest x-ray 022 Post covid-19 condition, unspecified 12/14/2021 Mitral valve prolapse 12/14/2021 GERD (gastroesophageal reflux disease) 12/14/2021 Encounters Date Type Specialty Care Team Description 08/13/2022 Orders Only <No scans attac hed> from Last 3 Months Family History Medical [...] Due Date Last Done Comments Tdap 1977 HIV for age 15-65 1981 Hepatitis C screening for age 0111/27/1984 18-79 [...] 12/15/2026 12/15/2021 Medical Devices Implanted Type Area Poacher Wringer Operator Device Shelf Model / Identifier Expiration Serial / Date Lot Ring Mitral 36mm Physio Ii - [id number] N/A: Dumont 01/26/2027 [id number] / Implanted: Qty: 1 on 04/20/2022 by Caden Tesfaye MD at [facility] Mitral [employer] / Valve Darlene [id number] Procedures Procedure Name Priority Date/Time Associated Diagnosis Comme nts ECHO COMPLETE WO Routine 08/13/2022 11:38 AM Fatigue Results for this CONTRAST CDT REEVES (dyspnea on procedure ar e in exertion) the results S/P heart valve section. repair from Last 3 Months Results ECHO COMPLETE WO CONTRAST (08/13/2022 11:38 AM CDT) P athologist Signature AORTIC VALVE 4 mmHg MEAN PG EJECTION 63 % FRACTION PEAK TR 2.2 m/s VELOCITY LVEDD 3.7 cm EJECTION 60 - 65% FRACTION Anatomical Region Laterality Modality HEART Ultrasound Specimen (Source) Anatomical Collection Method Collection Time Re ceived Time Location / / Volume Laterality 08/13/2022 11:08 AM CDT Narrative 08/13/2022 2:35 PM CDT ECHOCARDIOGRAM SEBLE Yamil VIOLETTA ? Accessi on#: ?? [id number] : ?1965 56 years Study Date: ?? 08/13/2022 11:08:59 AM Gender: M ?BP: ? 111/68 mmHg Height: 178.00 cm ?BSA: ?1.98 m? ?? Weight: 80.00 kg ? Tech: ? MJJ ? Referring MD: DAVID GALLEGOS [facility] Location: MOBILE-OP Procedure: 2D, Color Doppler and Spectra l Doppler. Indication for study: Fatigue, REEVES (dysp radha on exertion), S/P heart valve repair Cardiac Rhythm: Regular.Study quality: F air. Final Impressions: 1. Normal LV size, mildly increased wal l thickness, normal global systolic function with an estimated EF of 60 - 65%. 2. The mitral valve is repair with an a nnuloplasty ring, mean gradient 2-3mmHg, and trace mitral regurgitation. Comparison Compared to prior exam of 01/04/2022, ther e has been no significant change. Chamber Sizes and Function Normal left ventricular size, mildly inc reased wall thickness, normal global systolic function with an estimated EF of 60 - 65%. Left atrial size is normal. Right ventricular cavity size is normal, glob al systolic RV function is normal. RV wa ll thickness is normal. The right atrium is normal. Right atrial volume index is 16 ml/m? ??. Right atrial area is 12 cm? ??. The pulmonary artery is of normal si ze and origin. The sinus of Valsalva is normal sized. The ascending aorta is normal sized. Valves, RV Pressures and Diastolic Funct ion The aortic valve is trileaflet, no steno sis and no regurgitation. The mitral valve is repair with an annuloplasty ring, trace mitral regurgitation. Indeterminate pattern of LV diastolic filling. The tri cuspid valve is normal in structure. Tri cuspid regurgitation is mild regurgitation. The tricuspid regurgitant velocity is 2.2 m/s, the estimated right ventricular systolic pressure is 20 mmHg plus right atrial pressure. The pulmonic valve is normal. No pulmonary regurgitation. Masses, Effusion, Shunts There is no pericardial effusion. The in ferior vena cava is normal sized, respiratory size variation greater than 50%. Interatrial septum is not well visualized. MEASUREMENTS AND CALCULATIONS 2-D Measurements and LV Function: LVID (d) 3.7 cm LV FS% (2D) ?? 45 % LVID (s) 2.0 cm LVOT diameter 2.0 cm IVS (d) ??1.3 cm HR ?63 bpm LVPW (d) 1.6 cm LA Vol index ??19 ml/m2 Ao Sinus 3.8 cm RA Vol index ??16 ml/m2 Asc Ao ?? 3.4 cm RA area ? 12 cm? ?? LA ? 3.2 cm RV Max 4C (d) 2.7 cm Diastology: Mitral ?Tissue Doppler ?Pulmonary veins E Peak 1.2 m/s ??e', Septum ? 0.08 m /s Pulm s ?37.7 cm/s A Peak 0.5 m/s ??e', Lateral ?0.10 m /s Pulm d ?79.1 cm/s E/A ?2.2 ?E/e' Average ?? 12. 57 ?Pulm s/d ratio ??0.48 DT ? 342 msec IVRT ?? 81 msec Aortic Valve: Vmax ? 1.3 m/s ??MARKUS (V) ?? 2.42 cm? AI P 1/2 517 msec VTI ?0.27 m ?? MARKUS (I) ?? 2.59 cm? ?? LVOT V max 1.1 m/s ??Max PG ?7 mmHg LVOT VTI ?? 0.24 m ?? Mean PG ?? 4 mmHg SV ? 71 ml ?Dim Index 0.87 SV index ?? 36 ml/m? ?? CO ?4.5 l/min ?CI ?2.3 l/min/m? ?? Mitral Valve: MVA ? 2.2 cm? ?? MV P 1/2 ??99 msec MV Mean G 2 mmHg MV VTI ?0.36 m Tricuspid Valve and estimated PA pressur es: TR Vmax 2.2 m/s TAPSE 1.9 cm TR maxG 20 mmHg . This study was interpreted by an [facility]. ??Final ?? Procedure Note Jac Miller MD - 08/13/2022Fo rmatting of this note might be different from the original. ECHOCARDIOGRAM SEBLE DEL CASTILLO : 1965 56 years Study Date: 07/31 11:08:59 AM Gender: M BP: 111/68 mmHg Height: 178.00 cm BSA: 1.98 m? ?? Weight: 80.00 kg Tech: [facility] Referring MD: DAVID GALLEGOS Site: [facility] Reading Location: MOBILE-OP Procedure: 2D, Color Doppler and Spectra l Doppler. Indication for study: Fatigue, REEVES (dysp radha on exertion), S/P heart valve repair Cardiac Rhythm: Regular.Study quality: F air. Final Impressions: 1. Normal LV size, mildly increased wal l thickness, normal global systolic function with an estimated EF of 60 - 65%. 2. The mitral valve is repair with an a nnuloplasty ring, mean gradient 2-3mmHg, and trace mitral regurgitation. Comparison Compared to prior exam of 01/04/2022, ther e has been no significant change. Chamber Sizes and Function Normal left ventricular size, mildly inc reased wall thickness, normal global systolic function with an estimated EF of 60 - 65%. Left atrial size is normal. Right ventricular cavity size is normal, global systolic RV function is normal. RV wall thickness is normal. The right atrium is normal. Right atrial volume index is 16 ml/m? ??. Right atrial area is 12 cm? ??. The pulmonary artery is of normal size and origin. The sinus of Valsalva is normal sized. The ascending aorta is normal sized. Valves, RV Pressures and Diastolic Funct ion The aortic valve is trileaflet, no steno sis and no regurgitation. The mitral valve is repair with an annuloplasty ring, trace mitral regurgitation. Indeterminate pattern of LV diastolic filling. The tricuspid valve is normal in structure. Tricuspid regurgitation is mild regurgitation. The tricuspid regurgitant velocity is 2.2 m/s, the estimated right ventricular systolic pressure is 20 mmHg plus right atrial pressure. The pulmonic valve is normal. No pulmonary regurgitation. Masses, Effusion, Shunts There is no pericardial effusion. The in ferior vena cava is normal sized, respiratory size variation greater than 50%. Interatrial septum is not well visualized. MEASUREMENTS AND CALCULATIONS 2-D Measurements and LV Function: LVID (d) 3.7 cm LV FS% (2D) 45 % LVID (s) 2.0 cm LVOT diameter 2.0 cm IVS (d) 1.3 cm HR 63 bpm LVPW (d) 1.6 cm LA Vol index 19 ml/m2 Ao Sinus 3.8 cm RA Vol index 16 ml/m2 Asc Ao 3.4 cm RA area 12 cm? ?? LA 3.2 cm RV Max 4C (d) 2.7 cm Diastology: Mitral Tissue Doppler Pulmonary veins E Peak 1.2 m/s e', Septum 0.08 m/s Pulm s 37.7 cm/s A Peak 0.5 m/s e', Lateral 0.10 m/s Pulm d 79.1 cm/s E/A 2.2 E/e' Average 12.57 Pulm s/d rati o 0.48 DT 342 msec IVRT 81 msec Aortic Valve: Vmax 1.3 m/s MARKUS (V) 2.42 cm? ?? AI P 1/2 517 msec VTI 0.27 m MARKUS (I) 2.59 cm? ?? LVOT V max 1.1 m/s Max PG 7 mmHg LVOT VTI 0.24 m Mean PG 4 mmHg SV 71 ml Dim Index 0.87 SV index 36 ml/m? ?? CO 4.5 l/min CI 2.3 l/min/m? ?? Mitral Valve: MVA 2.2 cm? ?? MV P 1/2 99 msec MV Mean G 2 mmHg MV VTI 0.36 m Tricuspid Valve and estimated PA pressur es: TR Vmax 2.2 m/s TAPSE 1.9 cm TR maxG 20 mmHg . This study was interpreted by an [facility] facility. Final David Gallegos MD ECHO ORD from Last 3 Months Insurance Payer Benefit Plan / Subscriber ID Effective Dates Phone Addre ss Type Protein [employer] [id number] 2018-Present [address] [place] [address] Advance Directives Latest Code Status on File Code Status Date Activated Date Inactivated Comments Full Code 04/21/2022 10:57 AM 04/25/2022 5:29 PM Code Status Discussion: Reviewed Preferences Full Code 04/20/2022 6:07 AM 04/21/2022 10:57 AM Code Status Discussion: Unable to Assess Preferences, Provid er to review later Full Code 12/13/2021 8:20 PM 12/18/2021 4:05 PM Code Status Discussion: Reviewed Preferences Care Teams Asphalt Paving Supervisor Relationship Specialty Start Date End Date Teja Huff MD PCP - General Family Practice 04/20/211999 [place] [address]
--- OUTSIDE RECORDS SUMMARY | 2022-10-08 17:07 | XMS_ITS | Encounter Summary ---
:1965 Author Organization [facility] Address [address] [place] [address] Care Team Providers Name Role Phone Unavailable Primary Care Provider Unavailable Reason for Visit Reason Comments Skin Check Encounter Details Date Type Department Care Team Description 10/30/2019 Office Visit [facility] Julianna Oviedo Nevu s (Primary Dx); Clinic [place] RICHARDSON Seborrheic keratosis; [place] [address] [place]; [address] [address] Angioma of skin [place], [place] [phone] (Work) [phone] Social History Tobacco Use Types Packs/Day Years [...] Comments Blood Pressure 124/79 10/30/2019 2:28 PM 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 Traveling to [place] for 10 days in October, will travel [...] her behalf by Mague Richards, a trained medical supply technician. The creation of this document is based on the provider's statements to the medical supply technician. Mague Richards 2:38 PM October 30, 2019 [...] skin examination: YES Scribed By: Mague Richards, Senior Ui Web Developer The information in this document, created by the medical supply technician for me, accurately reflects the services I personally performed and the decisions made by me. I have reviewed and approved this document for accuracy prior to leaving the patient care area. October 30, 2019 2:42 PM Julianna Oviedo, , DEBRA ANGE FLOOR MANAGER documented in this encounter Plan of Treatment Not on filedocumented as of this encounter Visit Diagnoses Diagnosis Nevus - Primary Benign neoplasm of skin, site unspecifie d Seborrheic keratosis Other seborrheic keratosis [place] Other dyschromia Angioma of skin Hemangioma of skin and subcutaneous tiss ue documented in this encounter
--- OUTSIDE RECORDS SUMMARY | 2022-10-08 17:07 | XMS_ITS | Clinical Summary ---
:1965 Author Organization [facility] Address [address] [place] [address] Care Team Providers Name Role Phone Unavailable Primary Care Provider Unavailable Source Comments Patient records contain information from all sites at [facility]. For routine questions regarding patient records, call [phone] during business hours, M-F 8:00 AM - 5:00 PM Central Time. Record requests for emergency care only can be directed to [phone] at any time.[facility] Allergies Active Allergy Reactions Severity Noted Date [...] Effective Phone Address T ype Group Dates [facility] [id number] 2018-Pres [phone] [address] PPO OPEN ACCESS ent [address] [place] [address]
--- OUTSIDE RECORDS SUMMARY | 2022-10-08 17:07 | XMS_ITS | Encounter Summary ---
:1965 Author Organization [facility] Address [address] [place] [address] Care Team Providers Name Role Phone Unavailable Primary Care Provider Unavailable Reason for Visit Reason Comments Laceration lt 4th finger smashed betwee n 2 boulders 3 days ago,has laceration and swelling Encounter Details Date Type Department Care Team Description 06/17/2014 Office Visit [facility] Angela Person Finger i avelino, left, initial encounter (Primary Dx); Urgent Care Selina Bowser MD Fracture, finger, open, initial encounte r [address] [address] [facility] [phone] Social History Tobacco Use Types Packs/Day Years [...] proximally Follow-up with ortho hand- Given info [facility] Ortho Tetanus up to date [...]
--- OUTSIDE RECORDS SUMMARY | 2022-10-08 17:07 | XMS_ITS | Clinical Summary ---
:1965 Author Organization [place] Address [address] [place] [address] Care Team Providers Name Role Phone Unavailable [...] Comments Blood Pressure 124/79 10/30/2019 2:28 PM STATION TENDER Pulse 69 10/30/2019 2:28 PM STATION TENDER Temperature 36.8 ??C (98.2 ??F) 06/17/2014 12:39 PM CDT Respiratory Rate - - Oxygen Saturation 97% 10/30/2019 2:28 PM STATION TENDER Inhaled Oxygen Concentration - - Weight 78 [...] Effective Phone Address T e Group Dates [facility] [id number] 2013-Pres [phone] [address] O OPEN ACCESS ent [address] [place] [address] [phone] (Work)
--- OUTSIDE RECORDS SUMMARY | 2022-10-08 17:07 | XMS_ITS | Encounter Summary ---
:1965 Author Organization [facility] Address [address] [place] [address] Care Team Providers Name Role Phone Unavailable Primary Care Provider Unavailable Encounter Details Date Type Department Care Team Description 06/17/2014 Radiant Appointment [facility] Angela Personer injury, Clinic [place] MD Mague left, initial [place] [address] [place] [address] encounter [address] [phone] Social History Tobacco Use Types Packs/Day Years [...]
--- OUTSIDE RECORDS SUMMARY | 2022-10-08 17:07 | XMS_ITS | Encounter Summary ---
:1965 Author Organization [facility] Address [address] [place] [address] Care Team Providers Name Role Phone Unavailable Primary Care Provider Unavailable Reason for Visit Appointment Request (Routine) - Closed Specialty Diagnoses / Procedures Referred By Contact Refer red To Contact Cardiovascular Surgery Diagnoses Mitral Valve Acquired Disorder Referral ID Status Reason Start Date Expiration Date Visits Requ ested Visits Authorized [id number] Closed 03/11/2022 03/11/2023 1 Encounter Details Date Type Department Care Team Description 03/17/2022 Virtual Visit Department of Emmanuelle Dickinson Regurgita tion Mitral (Primary Dx); Cardiovascular Surgery Fatuma PTennille Radha l Valve Prolapse; in [facility] j[facility] Myocarditis ([facility]); [address] Pericarditis ([facility]); [place], [place] Non-ST Elevati on Myocardial Infarction ([facility]); [id number] Post COVID-19 Condition; [phone] Hypertension Es sential Primary Social History Tobacco Use Types Packs/Day Years Used Date Smoking Tobacco: Never Alcohol Use Standard Drinks/Week Comments Not Currently 0 (1 standard drink = 0.6 oz pure alcoho l) Sex Assigned at Date Recorded Not on file documented as of this encounter Progress Notes Emmanuelle Dickinson PTennille - 03/17/2022 8:45 AM CDT Akash Del Castillo : 1965 Visit Date: 03/17/22 [id number] VISIT A phone call care discussion with Mr. Del Castillo in the setting of the national COVID 19 pandemic was completed consistent with [facility] institutional direction. This is a review of outside medical records, including Care Everywhere, image acquisition and viewing, collaboration and communication with internal subspecialists as well as communication with primary care, and referring providers when indicated. This is a review of outside records to be reviewed and confirmed at the time of [id number] appointment. Currently a visit has not yet been scheduled. The patient and his were present for a consult via real-time audio technology by Emmanuelle BALL on March 17, 2022. REFERRING PHYSICIAN: self-referred Home fish culturist: Uche Marks MD?? [address]?? [address]?? [place] [address]? Home primary care provider: Teja Huff MD (2020June 2020 - Present) [address] SUBJECTIVE CHIEF COMPLAINT / REASON FOR CONSULT [...] mitral valve repair, which is unique to [facility]. Questions have been answered to the best [...] see the patient, but I recommend a austin JARED prior to my visit. Thank you Ysabel Lewis - 03/17/2022 8:45 AM CDT Patient is staying locally for testing/surgery documented in this encounter Miscellaneous Notes Addendum Note - Marah Wdae P.A.-C. - 03/17/2022 8:45 AM CDT Addended [...]
[2022-10-08 19:06] LABS: Chloride* 101 mmol/L (96-114); Potassium* 4.6 mmol/L (3.6-5.1); Sodium* 140 mmol/L (135-149)
[2022-10-08 19:09] LABS: Blood Urea Nitrogen* 20 mg/dL (7-30); Calcium* 9.7 mg/dL (8.4-10.6); Carbon Dioxide* 31 mmol/L (20-32); Creatinine* 1.2 mg/dL (0.5-1.5); Estimated Glomerular Filt Rate 71 ml/min; Glucose* 91 mg/dL (60-115)
== END 2022-10-08 17:05 | disposition home or self-care (01) ==
PROVIDERS: PCP Family Medicine; Visit Provider Family Medicine
DX: R68.89 Other general symptoms and signs (principal)
CPT/HCPCS: 80048; 84443

== ENCOUNTER 2022-10-22 10:22 | Outpatient (CLI) | payer OTHER, SELFPAY ==
--- NOTE | 2022-10-22 10:30 | CRLHL7_ITS ---
For Patients: As a result of the Cures Act, medical imaging exams and procedure reports are released immediately into your electronic medical record. You may view this report before your referring provider. If you have questions, please contact your health care provider. Indication: chest wall pain, sternum pain post sternotomy back in March Technique: Noncontrast CT chest Please note that all CT scans at this facility use dose modulation, iterative reconstruction, and/or weight-based dosing when appropriate to reduce radiation dose to as low as reasonably achievable. Comparison: 12/13/2021 Findings: Mild biapical pleural scarring noted. There is a calcified granuloma within the left lung apex. No infiltrate or edema. No effusion or pneumothorax. No compression fracture. Postoperative changes to the mitral valve noted. The cerclage wires about the manubrium and sternum appear intact. No evidence of infection. There is some offset of the sternotomy noted within the mid sternum which is not unusual. No retrosternal fluid collection or abscess. No mediastinal, hilar or axillary adenopathy. The ribs are intact. The upper abdomen is normal. Impression: Postop changes of median sternotomy with intact cerclage wire fixation and no evidence of sternal dehiscence or infection. Please note that all CT scans at this facility use dose modulation, iterative reconstruction, and/or weight-based dosing when appropriate to reduce radiation dose to as low as reasonably achievable. Dictated by Teja Krause MD @ 10/22/2022 11:52:32 AM (Electronically Signed)
== END 2022-10-22 10:23 | disposition home or self-care (01) ==
LOC: CT 10:23
PROVIDERS: PCP Family Medicine; Visit Provider Family Medicine
DX: R07.89 Other chest pain (principal)
CPT/HCPCS: 71250

== ENCOUNTER 2023-02-28 15:27 | Outpatient (CLI) | payer BC, SELFPAY | END 2023-02-28 15:28 | disposition home or self-care (01) | LOC: NFLDREF 15:28 | PROVIDERS: PCP Family Medicine; Visit Provider Internal Medicine | DX: R05.9 Cough, unspecified (principal) | CPT/HCPCS: 80048 ==

== ENCOUNTER 2023-05-13 09:47 | Outpatient (CLI) | payer BC, SELFPAY ==
--- NOTE | 2023-05-13 08:27 | W.ANESCHARGE ---
Anesthesia Charges Start Date/Time Anesthesia Start Date: 05/13/23 Anesthesia Start Time: 10:20 Stop Date/Time Anesthesia Stop Date: 05/13/23 Anesthesia Stop Time: 10:43
--- NOTE | 2023-05-13 08:27 | PM.ANHP ---
HPI - Pre-Anesthesia History of Present Illness Time Seen by Provider: 10:12 Date Seen: 05/13/23 Date of service: 05/13/23 Source: patient and old records reviewed Review of Systems Status of ROS Reports: 6 or more systems reviewed and unremarkable except as noted in History and below [facility] Medical History (Updated 05/13/23 @ 10:12 by Mesfin Nunez MD) Meniere's disease ?H81.09 - Meniere's disease, unspecified ear (ICD-10) Irritable bowel syndrome ?K58.9 - Irritable bowel syndrome without diarrhea (ICD-10) Internal hemorrhoids ?K64.8 - Other hemorrhoids (ICD-10) Gilbert's syndrome ?E80.4 - Gilbert syndrome (ICD-10) Gastroesophageal reflux disease (12/14/21) ?K21.9 - Gastro-esophageal reflux disease without esophagitis (ICD-10) Erectile dysfunction ?N52.9 - Male erectile dysfunction, unspecified (ICD-10) Benign familial tremor ?G25.0 - Essential tremor (ICD-10) Surgical History (Updated 11/03/22 @ 21:36 by Teja Huff MD) Hx of mitral valve repair ?Z98.890 - Other specified postprocedural states (ICD-10) Status post nasal septoplasty (12/23/17) ?Z98.890 - Other specified postprocedural states (ICD-10) History of vasectomy ?Z98.52 - Vasectomy status (ICD-10) History of tonsillectomy ?Z90.89 - Acquired absence of other organs (ICD-10) History of esophagogastroduodenoscopy (EGD) (06/08/13) ?Z98.890 - Other specified postprocedural states (ICD-10) History of colonoscopy (04/02/14) ?Z98.890 - Other specified postprocedural states (ICD-10) History of bunionectomy of right great toe (2010) ?Z98.890 - Other specified postprocedural states (ICD-10) Family History (Updated 04/29/22 @ 12:07 by Delio Nielsen) Father Heart disease Hyperlipidemia Parkinson's disease Mother Hyperlipidemia Paternal Grandfather Parkinson's disease Social History (Updated 06/30/22 @ 12:07 by Delio Frazier Narrative: single, 1 son, non-smoker, social [employer], 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 [employer] Smoking Status: Never smoker Little interest or pleasure in doing things: not at all Feeling down, depressed, or hopeless: several days Meds Home Medications and Allergies Home Medications Medication Instructions Recorded Confirmed Type aspirin 81 mg tablet,delayed 81 mg PO DAILY 08/04/22 04/11/23 History release multivitamin 1 tab PO QDAY 08/04/22 04/11/23 History sildenafil 50 mg tablet 50 mg PO DIRECTED 08/04/22 04/11/23 History fluticasone propionate 50 2 spray intranasal DAILY PRN 10/08/22 04/11/23 History mcg/actuation nasal spray,suspension Allergies Allergy/AdvReac Type Severity Reaction Status Date / Time Penicillins Allergy Mild Unknown Verified 04/11/23 11:29 Exam Const Documenting provider has reviewed patient's vital signs: yes Common normals: no apparent distress, oriented x3, healthy appearing, alert and well nourished General appearance: cooperative and comfortable Orientation/consciousness: Yes awake HENMT Common normals: normocephalic Head and scalp: normocephalic Neck & C-Spine Common normals: full ROM Chest Chest: symmetrical chest wall rise Resp Common normals: normal respiratory effort, no retractions, no use of accessory muscles and clear to auscultation bilaterally Auscultation: clear to auscultation bilaterally Cardio Common normals: regular rate, regular rhythm, S1 normal heart sound, S2 normal heart sound and no murmurs Rate: regular rate Rhythm: regular rhythm Heart sounds: S1 normal and S2 normal Neuro Common normals: oriented x3 Sensorium/orientation: awake and alert Assessment and Plan Assessment and plan (1) Colonoscopy planned: Status: Acute Plan ok to proceed with colonoscopy and sedation
--- NOTE | 2023-05-13 10:44 | W.ANESCHARGE ---
Anesthesia Charges Start Date/Time Anesthesia Start Date: 05/13/23 Anesthesia Start Time: 01:00 Stop Date/Time Anesthesia Stop Date: 05/13/23 Anesthesia Stop Time: 10:43
--- NOTE | 2023-05-13 12:27 | W.ANESCHARGE ---
Anesthesia Charges Start Date/Time Anesthesia Start Date: 05/13/23 Anesthesia Start Time: 10:20 Stop Date/Time Anesthesia Stop Date: 05/13/23 Anesthesia Stop Time: 10:43
== END 2023-05-13 09:48 | disposition home or self-care (01) ==
LOC: OP CLINIC 09:48
PROVIDERS: PCP Family Medicine; Visit Provider Internal Medicine
DX: Z12.11 Encounter for screening for malignant neoplasm of colon (principal)
CPT/HCPCS: 00811; 45378; 88305; J2704

== ENCOUNTER 2023-08-02 20:55 | Outpatient (CLI) | payer BC, SELFPAY | END 2023-08-02 20:56 | disposition home or self-care (01) | LOC: SLEEP 20:56 | PROVIDERS: PCP Family Medicine; Visit Provider Family Medicine | DX: G47.33 Obstructive sleep apnea (adult) (pediatric) (principal) | CPT/HCPCS: 95810 ==

== ENCOUNTER 2023-11-23 09:00 | Outpatient (CLI) | payer BC, SELFPAY ==
--- OUTSIDE RECORDS SUMMARY | 2023-11-23 09:03 | XMS_ITS | Referral Summary ---
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 Name Role Phone Unavailable Primary Care Provider Unavailabl e Allergies Active Allergy Reactions Criticality Noted Date Comments Penicillins Rash Low 06/17/2014 Medications No known medications Immunizations Name Administration Dates Next Due TDAP (Adacel,Boostrix) 08/22/2007 Social History Tobacco Use Types Packs/Day Years Used Date Smoking Tobacco: Never Smokeless Tobacco: Never Tobacco Cessation:Counseling Given: Yes Alcohol Use Standard Drinks/Week Comments Not Asked 0 (1 standard drink = 0.6 oz pur e alcohol) Adolescent Education Answer Date Record ed Getting School Help Needed Not on file 08/07 Sex and Gender Information Value Date Recorded Sex Assigned at Not on file Gender Identity Not on file Sexual Orientation Not on file Last Filed Vital Signs Vital Sign Reading Time Taken Comments Blood Pressure 124/79 10/30/2019 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
--- OUTSIDE RECORDS SUMMARY | 2023-11-23 09:03 | XMS_ITS | Clinical Summary ---
Author Name Unknown Organization [facility] Address [address] [place] [address] Care Team Providers Care Smocking Machine Operator Name Role Phone Elsewhere, Pcp Primary Care Provider Unavailabl e Source Comments Patient records contain information from all sites at [facility]. For routine questions regarding patient records, call [phone] during business hours, M-F 8:00 AM - 5:00 PM Central Time. Record requests for emergency care only can be directed to [phone] at any time.[facility] Allergies Active Allergy Reactions Criticality Noted Date Comments Mold Other (see comments) 09/02/2023 congestion Penicillins Rash 03/17/2022 At age 6. Medications Medication Sig Dispensed Refills Start Date End Date Status MULTIVITAMIN ORAL Take by mouth daily. [address] tablet Take 81 mg by mouth daily. 0 04/21/2022 Active amoxicillin (AMOXIL) 500 mg capsule Take 2,000 mg by mouth. Prior to dental appointments 0 07/26/2022 Active LORazepam (ATIVAN) 0.5 mg tablet Take 1 tablet by mouth at bedtime as needed for anxiety. 0 06/29/2023 Active sildenafiL (VIAGRA) 50 mg tablet Take 50 mg by mouth as needed. 0 07/31/2023 Active melatonin 10 mg tablet Take 10 mg by mouth at bedtime. 0 Active arginine (L-ARGININE) 1,000 mg per tablet Take 1 tablet (1,000 mg total) by mouth 3 (three) times a day. 270 tablet 3 09/15/2023 09/14/2024 Active Additional Information Patient taking differently:1,000 mg oral 3 times daily,Twice daily, Reported on 11/07/2023 atorvastatin (LIPITOR) 40 mg tablet TAKE 1 TABLET(40 MG) BY MOUTH DAILY 90 tablet 3 10/03/2023 Active metoprolol tartrate (LOPRESSOR) 25 mg tablet Take 1 tablet (25 mg total) by mouth 2 (two) times a day. 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 Headache Chronic (Primary Dx); Persistent Migraine Aura Without Cerebral Infarction Not Intractable Without Status Migrainosus; Transient Ischemic Attack 11/07/2023 1:45 PM COMMUNITY HEALTH OUTREACH WORKER Clinical Communication Virtual Review in [address] [address] Pre-visit Intake 10/04/2023 Refill Department of Cardiovascular Medicine in [address] [phone] Yesica Mccollum R.N. Med Refill 10/03/2023 11:15 AM COMMUNITY HEALTH OUTREACH WORKER Office Visit Department of Cardiovascular Medicine in [address] [phone] El-AmReilly M.D. Endothelial Dysfunction Coronary Artery (HCC) (Primary Dx) 10/03/2023 Refill Department of Cardiovascular Medicine in [address] [phone] El-AmReilly M.D. Med Refill 09/08/2023 10:37 AM COMMUNITY HEALTH OUTREACH WORKER - 09/08/2023 11:59 PM COMMUNITY HEALTH OUTREACH WORKER Hospital Encounter Department of Vascular Medicine in [place], [place] [address] [place] [phone] Suraj Pelaez M.D. Mitral Valve Prolapse Discharge Disposition: Home or Self Care 09/08/2023 9:52 AM COMMUNITY HEALTH OUTREACH WORKER - 09/08/2023 10:36 AM COMMUNITY HEALTH OUTREACH WORKER Hospital Encounter Department of Laboratory Medicine and Pathology, [facility] in [place], [place] [address] [place] [phone] Suraj Pelaez M.D. Persistent Migraine Aura Without Cerebral Infarction Not Intractable Without Status Migrainosus Discharge Disposition: Home or Self Care 09/08/2023 9:07 AM COMMUNITY HEALTH OUTREACH WORKER - 09/08/2023 9:51 AM COMMUNITY HEALTH OUTREACH WORKER Hospital Encounter Department of Cardiovascular Diseases in [place], [place] [address] [place] [phone] Suraj Pelaez M.D. Mitral Valve Prolapse Discharge Disposition: Home or Self Care 09/06/2023 1:15 PM COMMUNITY HEALTH OUTREACH WORKER Comprehensive Visit Department of Cardiovascular Medicine in [place], [place] [address] [place] [phone] [facility] Obstructive Sleep Apnea Adult (Primary Dx); Mitral Valve Prolapse; Persistent Migraine Aura Without Cerebral Infarction Not Intractable Without Status Migrainosus 09/06/2023 8:31 AM COMMUNITY HEALTH OUTREACH WORKER - 09/06/2023 11:59 PM COMMUNITY HEALTH OUTREACH WORKER Hospital Encounter Department of Laboratory Medicine and Pathology, [facility] in [place], [place] [address] [place] [phone] Raven Chandra APRN, C.N.PAugust, D.N.P. Hypertension Essential Primary; Regurgitation Mitral; Atrial Fibrillation Unspecified (HCC); Repair Mitral Valve Status Post; Post COVID-19 Condition Discharge Disposition: Home or Self Care 09/05/2023 10:30 AM COMMUNITY HEALTH OUTREACH WORKER Diagnostic Division of Pulmonary Medicine in [place], [place] [address] [place] [phone] Raven Chandra APRN, C.N.P., D.N.P. Hypertension Essential Primary; Regurgitation Mitral; Atrial Fibrillation Unspecified (HCC); Repair Mitral Valve Status Post; Post COVID-19 Condition 09/05/2023 8:00 AM COMMUNITY HEALTH OUTREACH WORKER - 09/05/2023 11:59 PM COMMUNITY HEALTH OUTREACH WORKER Hospital Encounter Department of Cardiovascular Diseases in [place], [place] [address] [place] [address] Raven Chandra APRN C.N.P., D.N.P. Hypertension Essential Primary; Regurgitation Mitral; Atrial Fibrillation Unspecified (HCC); Repair Mitral Valve Status Post; Post COVID-19 Condition Discharge Disposition: Home or Self Care 09/02/2023 8:15 AM CDT Clinical Communication Virtual Review in [place], [place] 200 [place] [address] Pre-visit Intake from Last 3 Months Family History Medical History Relation Name Comments Hyperlipidemia Brother Lee Del Castillo Diabetes Father Panda Del Castillo Hypertension Father Panda Del Castillo Parkinson disease Father Panda Del Castillo Skin cancer Father Panda Del Castillo Hypertension Mother Sarita Del Castillo Hyperlipidemia Sister Relation Name Status Comments Brother Lee Del Castillo Father Panda Del Castillo Mother Sarita Del Castillo Sister Social History Tobacco Use Types Packs/Day Years Used Date Smoking Tobacco: Never Smokeless Tobacco: Never Tobacco Cessation:Counseling Given: Not Answered Alcohol Use Standard Drinks/Week Comments Yes 9 (1 standard drink = 0.6 oz pur e alcohol) Overall Financial Resource Strain (CARDIA) Answe r Date Recorded How hard is it for you to pa y for the very basics like food, housing, medical care, and heating? Not hard at all 09/01/2023 PHQ-2 Answer Date Recorded PHQ-2 Score 4 11/07/2023 Exercise Vital Sign Answer Date Recorde d On average, how many days pe r week do you engage in moderate to strenuous exercise (like a brisk walk)? 4 days 09/01/2023 On average, how many minutes do you engage in exercise at this level? 20 min 09/01/2023 Hunger Vital Sign Answer Date Recorded Within the past 12 months, y ou worried that your food would run out before you got the money to buy more. Never true 09/01/20 23 Within the past 12 months, t he food you bought just didn't last and you didn't have money to get more. Never true 09/01/2023 PRAPARE - Transportation Answer Date Re corded In the past 12 months, has l ack of transportation kept you from medical appointments or from getting medications? No 12/2022 In the past 12 months, has l ack of transportation kept you from meetings, work, or from getting things needed for daily living? No 09/01/2023 Depression Answer Date Recor ded PHQ-9 Total Score (max 27) 8 11/07 Nutrition Answer Date Recorded Nutrition: EVOO Fat Source Unknown 09/01 On average, how many serving s of fruits and vegetables do you eat per day (serving size is equal to 1 cup or approximately the size of a tennis ball)? 3-5 09/01/2023 Dental Answer Date Recorded Dental: Regular Dentist Yes 09/01/20 Employment Answer Date Recorded Employment status Employed and actively working without restrictions 09/01/2023 Housing Stability Answer Date Recorded What is your living situation today? I [facility] to live 09/01/2023 Sex and Gender Information Value Date Recorded Sex Assigned at Male 09/01/2023 8:44 AM CDT Gender Identity Male 09/01/2023 8:44 AM CDT Sexual Orientation Straight 09/01/2023 8: 44 AM CDT Last Filed Vital Signs Vital Sign Reading Time Taken Comments Blood Pressure 118/72 11/08/2023 11:08 AM COMMUNITY HEALTH OUTREACH WORKER Pulse 52 11/08/2023 11:08 AM COMMUNITY HEALTH OUTREACH WORKER Temperature - - Respiratory Rate - - Oxygen Saturation - - Inhaled Oxygen Concentration - - Weight 86.9 kg (191 lb 9.3 oz) 11/08/2023 11:08 AM COMMUNITY HEALTH OUTREACH WORKER Height 182 cm (5' 11.65) 11/08/2023 11:08 AM CS T Body Mass Index 26.23 11/08/2023 11:08 AM COMMUNITY HEALTH OUTREACH WORKER Plan of Treatment Health Maintenance Due Date Last Done Comments CT Colonography 1966 Cologuard 1966 Colonoscopy 1966 Colorectal Cancer Screening 1966 FIT 1966 HIV Screening 1966 Hepatitis B Vaccines (1 of 3 - 3-dose series) 1966 Hepatitis C Screening 1966 COVID-19 Vaccine ( season) 2023 01/26/2022, 02/07/2021, 01/17/2021 Influenza Vaccine (#1) 2023 9, 09/27/2017, 09/16/2011 Office Visit for Blood Pressure Check / Re-check 11/08/2024 11/08/2023 Fasting Glucose for Diabetes Screening 09/06/2026 09/06/2023, 05/25/2022, 04/25/2022, Additional history exists DTaP,Tdap,and Td Vaccines (5 - Td or Tdap) 09/27/2027 09/27/2017, 08/22/2007, 07/02/1997, Additional history exists Lipid (Cholesterol) Screening 09/06/2028 09/06/2023, 12/15/2021 Zoster Vaccines Completed 04/11/2023, 11/03/2020 Depression Screening (Annual PHQ-2) Completed 11/07/2023 Pneumococcal vaccine (0-64 years) Aged Out No longer eligible based on patient's age to complete this topic Medical Devices Implanted Type Area Antenna Engineer Device Identifier Shelf Expiration Date Model / Serial / Lot Epicardial Wires Cardiac Other Heart Description:Epicardial wires , 1.5T, 3T conditional, Normal/Normal scan mode. Claudine Marina 11/08/22 Annuloplasty Ring-04/20/2022 Implanted:04/20 (Quantity not on file) Vascular Other Heart Price Network [employer] 36 MM FESTUS PRICE PHYSIO II ANNULOPLASTY RING / / Description:price physio t ube ring 36 mm Festus Price Physio II annuloplasty ring Procedures Procedure Name Priority Date/Time Associated Diagnosis Comments CV ENDOPAT Routine 09/08/2023 2:51 PM COMMUNITY HEALTH OUTREACH WORKER Mitral Valve Prolapse C-REACTIVE PROTEIN, HIGH SENSITIVITY, S/P Routine 09/08/2023 10:09 AM COMMUNITY HEALTH OUTREACH WORKER Persistent Migraine Aura Without Cerebral Infarction Not Intractable Without Status Migrainosus CARDIOPULMONARY (VO2) EXERCISE TEST Routine 09/08/2023 10:04 AM COMMUNITY HEALTH OUTREACH WORKER Mitral Valve Prolapse HOLTER MONITOR - IN CLINIC OB GYN PHYSICIAN ASSISTANT Routine 09/06/2023 11:49 AM COMMUNITY HEALTH OUTREACH WORKER Hypertension Essential Primary Regurgitation Mitral Atrial Fibrillation Unspecified (HCC) Repair Mitral Valve Status Post Post COVID-19 Condition NT-PRO B-TYPE NATRIURETIC PEPTIDE (BNP), S Routine 09/06/2023 8:57 AM COMMUNITY HEALTH OUTREACH WORKER Hypertension Essential Primary Regurgitation Mitral Atrial Fibrillation Unspecified (HCC) Repair Mitral Valve Status Post Post COVID-19 Condition LIPID PANEL, S Routine 09/06/2023 8:57 AM COMMUNITY HEALTH OUTREACH WORKER Hypertension Essential Primary Regurgitation Mitral Atrial Fibrillation Unspecified (HCC) Repair Mitral Valve Status Post Post COVID-19 Condition THYROID FUNCTION CASCADE, S Routine 09/06/2023 8:57 AM COMMUNITY HEALTH OUTREACH WORKER Hypertension Essential Primary Regurgitation Mitral Atrial Fibrillation Unspecified (HCC) Repair Mitral Valve Status Post Post COVID-19 Condition BASIC METABOLIC PANEL, S/P Routine 09/06/2023 8:57 AM COMMUNITY HEALTH OUTREACH WORKER Hypertension Essential Primary Regurgitation Mitral Atrial Fibrillation Unspecified (HCC) Repair Mitral Valve Status Post Post COVID-19 Condition CBC WITH DIFFERENTIAL, B Routine 09/06/2023 8:57 AM COMMUNITY HEALTH OUTREACH WORKER Hypertension Essential Primary Regurgitation Mitral Atrial Fibrillation Unspecified (HCC) Repair Mitral Valve Status Post Post COVID-19 Condition ECG Routine 09/06/2023 8:20 AM COMMUNITY HEALTH OUTREACH WORKER Hypertension Essential Primary Regurgitation Mitral Atrial Fibrillation Unspecified (HCC) Repair Mitral Valve Status Post Post COVID-19 Condition PUL HOME OVERNIGHT OXIMETRY Routine 09/05/2023 Hypertension Essential Primary Regurgitation Mitral Atrial Fibrillation Unspecified (HCC) Repair Mitral Valve Status Post Post COVID-19 Condition from Last 3 Months Results * CV EndoPAT (09/08/2023 2:51 PM COMMUNITY HEALTH OUTREACH WORKER) Anatomical Region Laterality Modality Other 09/08/2023 2:30 PM COMMUNITY HEALTH OUTREACH WORKER Narrative 09/08/2023 2:30 PM COMMUNITY HEALTH OUTREACH WORKER Bilateral: Endo-PAT ?Endothelial Function ? Probe digit: ? Right-- ??Index, ?Left-- ??Index ??Occlusion side: ? Left RHI Index: ? 1.88 General: No prior studies. Conclusions: EndoPAT study The reactive hyperemic response following transient upper extremity arterial occlusion suggests borderline abnormal arterial reactivity. No prior study for comparison. Procedure Note Jeffery Rocha M.D. - 09/08/2023 Bilateral: Endo-PAT Endothelial Function Probe digit: Right--Index, Left-- Index Occlusion side: Left RHI Index: 1.88 General: No prior studies. Conclusions: EndoPAT study The reactive hyperemic response followingtransient upper extremity arterial occlusion suggests borderline abnormalarterial reactivity. No prior study for comparison. Suraj Pelaez M.D. CV VASCULAR PROCEDUR ES * C-Reactive Protein, High Sensitivity (09/08/2023 10:09 AM COMMUNITY HEALTH OUTREACH WORKER) C-Reactive Protein, High Sens, S 1.7 <2.0 mg/L 09/08/2023 11:10 AM COMMUNITY HEALTH OUTREACH WORKER DTL Blood (Blood, Venous) 09/08/2023 10:09 AM COMMUNITY HEALTH OUTREACH WORKER 09/08/2023 10:53 AM COMMUNITY HEALTH OUTREACH WORKER Suraj Pelaez M.D. LAB BLOOD ADD-ON Performing Organization Address [facility]/State/ZIP Co de Phone Number [facility] [place] [address] [place] [address], [facility] [[email or web address]] [facility] [address] [place] [address] * CARDIOPULMONARY (VO2) EXERCISE TEST (09/08/2023 10:04 AM COMMUNITY HEALTH OUTREACH WORKER) 09/08/2023 9:07 AM COMMUNITY HEALTH OUTREACH WORKER Narrative [facility] CV MERGE - 09/08/2023 11:20 AM COMMUNITY HEALTH OUTREACH WORKER See PDF For Result Procedure Note Danis Johnson M.D., Ph.D. - 09/08/2023 See PDF For Result Suraj Pelaez M.D. CV STRESS PROCEDURES CV MERGE NA * HOLTER MONITOR - IN CLINIC OB GYN PHYSICIAN ASSISTANT (09/06/2023 11:49 AM COMMUNITY HEALTH OUTREACH WORKER) Min Heart Rate 52 bpm INFOB IONIC MOME Max Heart Rate 77 bpm INFOB IONIC MOME Mean Heart Rate 59 bpm INFOBIONIC MOME VE Total Beats 535 count INFOB IONIC MOME VE Percent Beats less than 1 percent INFOBIONIC MOME SVE Total Beats 8 count INFOBIONIC MOME SVE Percent Beats less than 1 percent INFOBIONIC MOME AF Count 0 count INFOBIONIC MOME AF Duration 0 duration INFOBION IC MOME AF [place] 0 percent INFOBIONIC MOME Symptom Count 7 count INFOBI ONIC MOME 09/05/2023 8:28 AM COMMUNITY HEALTH OUTREACH WORKER Narrative INFOBIONIC MOME - 09/06/2023 2:44 PM COMMUNITY HEALTH OUTREACH WORKER 1. The basic rhythm was sinus. The total analyzed time was 21h 22m. The heart rate varied from 52 to 77 bpm. The average HR was 59 bpm. 2. Premature ventricular complexes were noted singly, fused, in pairs, in trigeminy and three 3 beat ventricular runs with a maximum rate of 174 bpm. One 10 beat run of accelerated idioventricular rhythm was seen with a rate of 63 bpm. There were 535 PVCs recorded with a PVC burden of less than 1%. 3. Premature supraventricular complexes were noted singly. There were 8 PACs recorded with a PAC burden of less than 1%. 4. A total of 7 symptomatic events were noted, which included intermittent shortness of breath. The basic rhythm was sinus. The heart rate varied from 58 to 69 bpm. PACs were seen singly. PVCs were seen singly. Apartment Leasing Agent: HERIBERTO Calixto/ HERIBERTO Funes Procedure Note Garrett Mustafa Jr., M.D. - 09/06/2023 1. The basic rhythm was sinus. The total analyzed time was 21h 22m. Theheart rate varied from 52 to 77 bpm. The average HR was 59 bpm. 2. Premature ventricular complexes were noted singly, fused, in pairs, intrigeminy and three 3 beat ventricular runs with a maximum rate of 174bpm. One 10 beat run of accelerated idioventricular rhythm was seen with arate of 63 bpm. There were 535 PVCs recorded with a PVC burden of less than 1%. 3. Premature supraventricular complexes were noted singly. There were 8PACs recorded with a PAC burden of less than 1%. 4. A total of 7 symptomatic events were noted, which includedintermittent shortness of breath. The basic rhythm was sinus. The heartrate varied from 58 to 69 bpm. PACs were seen singly. PVCs were seensingly. Apartment Leasing Agent: HERIBERTO Calixto/ HERIBERTO Funes Raven Chandra APRN, C.N.P., D.N.P. CV CARDIAC SERVICES PROCEDURES INFOBIONIC LYNN NA * Lipid Panel (09/06/2023 8:57 AM COMMUNITY HEALTH OUTREACH WORKER) Triglycerides 112 mg/dL 09/06/2023 9:59 AM COMMUNITY HEALTH OUTREACH WORKER DTL Comment: ----REFERENCE VALUE---- Normal: <150 mg/dL Borderline High: 150-199 mg/dL High: 200-499 mg/dL Very High: > or =500 mg/dL Cholesterol, Total 184 mg/dL 2022 9:59 AM COMMUNITY HEALTH OUTREACH WORKER DTL Comment: ----REFERENCE VALUE---- Desirable: < 200 mg/dL Borderline High: 200 - 239 mg/dL High: > or = 240 mg/dL Cholesterol, LDL, Calculated 113 mg/dL 09/06/2023 9:59 AM COMMUNITY HEALTH OUTREACH WORKER DTL Comment: ----REFERENCE VALUE---- Desirable: <100 mg/dL Above Desirable: 100-129 mg/dL Borderline High: 130-159 mg/dL High: 160-189 mg/dL Very High: >=190 mg/dL ----ADDITIONAL INFORMATION---- LDL cholesterol calculated using the Purvis/NIH equation. Cholesterol, HDL, S 51 >=40 mg/dL 09/06/2023 9:59 AM COMMUNITY HEALTH OUTREACH WORKER DTL Cholesterol, Non-HDL, Calculated 133 mg/dL 09/06/2023 9:59 AM COMMUNITY HEALTH OUTREACH WORKER DTL Comment: ----REFERENCE VALUE---- Desirable: <130 mg/dL Above Desirable: 130-159 mg/dL Borderline High: 160-189 mg/dL High: 190-219 mg/dL Very High: > or =220 mg/dL Fasting (8 HR or more) Yes 09/06/2023 9:28 AM COMMUNITY HEALTH OUTREACH WORKER DTL Blood (Blood, Venous) 09/06/2023 8:57 AM COMMUNITY HEALTH OUTREACH WORKER 09/06/2023 9:28 AM COMMUNITY HEALTH OUTREACH WORKER Raven Chandra APRN, C.N.P., Vikas.NAugustPAugust FITCH BLOOD ADD-ON Performing Organization Address City/[facility]/[place] [address] * Thyroid Function [place] (09/06/2023 8:57 AM COMMUNITY HEALTH OUTREACH WORKER) Pathologist [facility] TSH, Sensitive 4.2 0.3 - 4.2 mIU/L 09/06/2023 9:59 AM COMMUNITY HEALTH OUTREACH WORKER DTL Blood (Blood, Venous) 09/06/2023 8:57 AM COMMUNITY HEALTH OUTREACH WORKER 09/06/2023 9:28 AM COMMUNITY HEALTH OUTREACH WORKER Raven Chandra APRN, C.N.P., Vikas.N.PAugust MASCORRO B BLOOD ADD-ON Performing Organization Address City/[facility]/ZIP Co de Phone Number [address] [place] [address] * (ABNORMAL) NT-Pro B-Type Natriuretic Peptide (BNP) (09/06/2023 8:57 AM COMMUNITY HEALTH OUTREACH WORKER) NT-Pro BNP 124(H) <=88 pg/mL 09/06/2023 9:59 AM COMMUNITY HEALTH OUTREACH WORKER DTL Comment: NT-proBNP values less than 300 pg/mL have a 99% negative predictive value for excluding acute congestive heart failure. A cutoff of 1200 pg/mL for patients with an eGFR<60 yields a diagnostic sensitivity and specificity of 89% and 72% for acute congestive heart failure. A diagnostic NT-proBNP cutoff of 900 pg/mL has been suggested in adults 50-75 years of age in the absence of renal failure. Blood (Blood, Venous) 09/06/2023 8:57 AM COMMUNITY HEALTH OUTREACH WORKER 09/06/2023 9:28 AM COMMUNITY HEALTH OUTREACH WORKER Raven Chandra APRN, C.N.P., Vikas.N.PAugust FITCH BLOOD ADD-ON [facility] [place] [address] [place] [address], [facility] [[email or web address]] DTL [facility] [address] [place] [address] * CBC with Differential, Blood (09/06/2023 8:57 AM COMMUNITY HEALTH OUTREACH WORKER) Hemoglobin 15.1 13.2 - 16.6 g/dL 09/06/2023 9:34 AM COMMUNITY HEALTH OUTREACH WORKER DTL Hematocrit 43.7 38.3 - 48.6 % 09/06/2023 9:34 AM COMMUNITY HEALTH OUTREACH WORKER DTL Erythrocytes 5.13 4.35 - 5.65 x10(12)/L 09/06/2023 9:34 AM COMMUNITY HEALTH OUTREACH WORKER DTL MCV 85.2 78.2 - 97.9 fL 09/06/2023 9:34 AM COMMUNITY HEALTH OUTREACH WORKER DTL RBC Distrib Width 12.5 11.8 - 14.5 % 09/06/2023 9:34 AM COMMUNITY HEALTH OUTREACH WORKER DTL Platelet Count 257 135 - 317 x10(9)/L 09/06/2023 9:34 AM COMMUNITY HEALTH OUTREACH WORKER DTL Leukocytes 5.8 3.4 - 9.6 x10(9)/L 09/06/2023 9:34 AM COMMUNITY HEALTH OUTREACH WORKER DTL Neutrophils 3.38 1.56 - 6.45 x10(9)/L 09/06/2023 9:34 AM COMMUNITY HEALTH OUTREACH WORKER DHPM Lymphocytes 1.50 0.95 - 3.07 x10(9)/L 09/06/2023 9:34 AM COMMUNITY HEALTH OUTREACH WORKER DTL Monocytes 0.61 0.26 - 0.81 x10(9)/L 09/06/2023 9:34 AM COMMUNITY HEALTH OUTREACH WORKER DTL Eosinophils 0.26 0.03 - 0.48 x10(9)/L 09/06/2023 9:34 AM COMMUNITY HEALTH OUTREACH WORKER DTL Basophils 0.05 0.01 - 0.08 x10(9)/L 09/06/2023 9:34 AM COMMUNITY HEALTH OUTREACH WORKER DTL Blood (Blood, Venous) 09/06/2023 8:57 AM COMMUNITY HEALTH OUTREACH WORKER 09/06/2023 9:14 AM COMMUNITY HEALTH OUTREACH WORKER Raven Chandra APRN, C.N.P., Vikas.N.PAugust FITCH BLOOD ADD-ON [facility] [place] [address] [place] [address], [facility] [[email or web address]] DTL [facility] [address] [place] [address] [facility] [address] [place] [address] * Basic Metabolic Panel (09/06/2023 8:57 AM COMMUNITY HEALTH OUTREACH WORKER) Pathologist [facility] Potassium, S 4.7 3.6 - 5.2 mmol/L 09/06/2023 9:59 AM COMMUNITY HEALTH OUTREACH WORKER DTL Sodium, S 137 135 - 145 mmol/L 09/06/2023 9:59 AM COMMUNITY HEALTH OUTREACH WORKER DTL Chloride, S 102 98 - 107 mmol/L 09/06/2023 9:59 AM COMMUNITY HEALTH OUTREACH WORKER DTL Bicarbonate, S 26 22 - 29 mmol/L 09/06/2023 9:59 AM COMMUNITY HEALTH OUTREACH WORKER DTL Anion Gap 9 7 - 15 09/06/2023 9:59 AM COMMUNITY HEALTH OUTREACH WORKER DTL BUN (Blood Urea Nitrogen), S 15 8 - 24 mg/dL 09/06/2023 9:59 AM COMMUNITY HEALTH OUTREACH WORKER DTL Creatinine 1.08 0.74 - 1.35 mg/dL 09/06/2023 9:59 AM COMMUNITY HEALTH OUTREACH WORKER DTL Estimated GFR (eGFR) 81 >=60 mL/min/BSA 09/06/2023 9:59 AM COMMUNITY HEALTH OUTREACH WORKER DTL Comment: Estimated GFR calculated using the 2020 CKD_EPI creatinine equation. Calcium, Total, S 9.8 8.6 - 10.0 mg/dL 09/06/2023 9:59 AM COMMUNITY HEALTH OUTREACH WORKER DTL Glucose, S 112 70 - 140 mg/dL 09/06/2023 9:59 AM COMMUNITY HEALTH OUTREACH WORKER DTL Blood (Blood, Venous) 09/06/2023 8:57 AM COMMUNITY HEALTH OUTREACH WORKER 09/06/2023 9:28 AM COMMUNITY HEALTH OUTREACH WORKER Raven Chandra APRN, C.N.P., Vikas.N.P. LA B BLOOD ADD-ON Performing Organization Address [facility] Co de Phone Number [facility] [place] [address] [place] [address], [facility] [[email or web address]] DTL [facility] [address] [place] [address] * ECG 12 Lead (09/06/2023 8:20 AM COMMUNITY HEALTH OUTREACH WORKER) Ventricular Rate ECG/Min 59 BPM MUSE OK Interval 166 ms MUSE QRSD Interval 92 ms MUSE QT Interval 420 ms MUSE QTC Interval 415 ms MUSE P [place] 62 degrees MUSE R [place] 49 degrees MUSE T Wave [place] 62 degrees MUSE 09/06/2023 8:20 AM COMMUNITY HEALTH OUTREACH WORKER 09/06/2023 8:28 AM COMMUNITY HEALTH OUTREACH WORKER Impressions MUSE - 09/06/2023 8:28 AM COMMUNITY HEALTH OUTREACH WORKER Sinus bradycardia Otherwise normal ECG No previous ECGs available Reviewed by HERIBERTO Marc Narrative Procedure Note Hema Lawrence M.D., Ph.D. - 09/06/2023 IMPRESSION: Sinus bradycardia Otherwise normal ECG No previous ECGs available Reviewed by HERIBERTO Marc Raven Chandra APRN, C.N.P., D.N.P. EC G ORDERABLES Performing Organization Address [facility] Co de Phone Number MUSE NA * Home Overnight Oximetry (09/05/2023) 09/05/2023 Impressions [place] [facility] - 09/07/2023 7:27 AM COMMUNITY HEALTH OUTREACH WORKER Overnight oximetry performed on room air. ??Baseline oxygen saturation was 91%. ??There were frequent oscillatory desaturations down to 78%. ??REUBEN:37. Impression: ??Abnormal. ??Findings are suggestive of a positional or sleep- related breathing disorder and a possible underlying gas exchange abnormality. Please note the [place] ??Sleepiness Scale of 14, indicative of excessive daytime sleepiness. Dictated by: Heri Gramajo M.D. Physician: Ramses Newman M.D. [id number] Narrative Procedure Note Ramses Newman M.D., Ph.D. - 09/07/2023 IMPRESSION: Overnight oximetry performed on room air. Baseline oxygen saturation was91%. There were frequent oscillatory desaturations down to 78%.REUBEN:37. Impression: Abnormal. Findings are suggestive of a positional orsleep-related breathing disorder and a possible underlying gas exchangeabnormality. Please note the [place]ouck Sleepiness Scale of 14, indicativeof excessive daytime sleepiness. Dictated by: Heri Gramajo M.D. Physician: Ramses Newman M.D. [id number] Raven Chandra APRN, C.N.P., D.N.P. [facility] ORDERABLES [place] [facility] from Last 3 Months Care Teams Smocking Machine Operator Relationship Specialty Start Date End Date Elsewhere, Pcp PCP - General Internal Medicine 11/07/23
--- OUTSIDE RECORDS SUMMARY | 2023-11-23 09:03 | XMS_ITS | Clinical Summary ---
Author Name Unknown Organization [facility] Address [address] [place] [address] Care Team Providers Care Pipe Smoker Machine Operator Name Role Phone Unavailable Primary Care Provider Unavailabl e Allergies Active Allergy Reactions Criticality Noted Date Comments Penicillins Rash Low 06/17/2014 Medications No known medications Immunizations Name Administration Dates Next Due TDAP (Adacel,Boostrix) 08/22/2007 Family History Medical History Relation [...] Comments Blood Pressure 124/79 10/30/2019 2:28 PM SEPARATOR INSERTER Pulse 69 10/30/2019 2:28 PM SEPARATOR INSERTER Temperature 36.8 ??C (98.2 ??F) 06/17/2014 12:39 PM C DT Respiratory Rate - - Oxygen Saturation 97% 10/30/2019 2:28 PM SEPARATOR INSERTER Inhaled Oxygen Concentration - - Weight 78 kg (172 lb) 06/17/2014 12:39 PM CDT Height - - Body Mass Index - - Plan of Treatment Health Maintenance Due Date Last Done Comments ADVANCE CARE PLANNING 1966 ANNUAL REVIEW OF HM ORDERS 1966 CT COLONOGRAPHY 1966 FIT 1966 FLEX SIG 1966 HEPATITIS B IMMUNIZATION (1 of 3 - 3-dose series) 1966 sDNA (Cologuard) 1966 COVID-19 Vaccine (#1) 05/27/1967 COLONOSCOPY 1976 COLORECTAL CANCER SCREENING 1976 HIV SCREENING 1981 HEPATITIS C SCREENING 1984 LIPID 2001 ZOSTER IMMUNIZATION (1 of 2) 2016 DTAP/TDAP/TD IMMUNIZATION (2 - Td or Tdap) 08/22/2017 08/22/2007, 07/02/1997 YEARLY PREVENTIVE VISIT 09/27/2018 09/27/20 17, 10/21/2016 INFLUENZA VACCINE (#1) 2023 9, 09/27/2017, 09/16/2011 PHQ-2 (once per calendar year) 2023 HPV IMMUNIZATION Aged Out No longer e ligible based on patient's age to complete this topic IPV IMMUNIZATION Aged Out No longer e ligible based on patient's age to complete this topic MENINGITIS IMMUNIZATION Aged Out No l onger eligible based on patient's age to complete this topic Pneumococcal Vaccine: Pediatrics (0 to 5 Years) and At-Risk Patients (6 to 64 Years) Aged Out No longer eligible b ased on patient's age to complete this topic RSV MONOCLONAL ANTIBODY Aged Out No l onger eligible based on patient's age to complete this topic
--- OUTSIDE RECORDS SUMMARY | 2023-11-23 09:03 | XMS_ITS | Clinical Summary ---
Author Name Unknown Organization [facility] Address [place], [place] [address] Care Team Providers Care Fur Dyer Name Role Phone Teja Huff MD Primary Care Provider + Allergies Active Allergy Reactions Criticality Noted Date Comments Penicillins *Unknown 12/13/2021 Medications Medication Sig Dispensed Refills Start Date End Date Status multivitamin (MVI) tablet Take 1 Tablet by mouth once daily. 0 Active diphenhydrAMINE (BENADRYL) 25 mg capsule Take 25 mg by mouth every 6 hours if needed. 0 Active acetaminophen (TYLENOL EXTRA STRGTH) 500 mg tabletIndications: S/P MVR (mitral valve repair) Take 1-2 Tablets (500-1,000 mg) by mouth every 6 hours if needed for Pain. Max acetaminophen dose: 4000mg in 24 hrs. 0 04/25/2022 Active aspirin (ECOTRIN) 81 mg enteric coated tabletIndications: S/P MVR (mitral valve repair) Take 1 Tablet (81 mg) by mouth once daily with a meal. 0 04/26/2022 Active loratadine (Claritin) 10 mg tablet Take 1 Tablet (10 mg) by mouth once daily. 0 05/18/2022 Active metoprolol tartrate (LOPRESSOR) 25 mg tabletIndications: S/P MVR (mitral valve repair) Take 1 Tablet (25 mg) by mouth in the morning and 1 Tablet (25 mg) in the evening. 60 Tablet 4 05/24/2022 Active CPAPIndications:OS A (obstructive sleep apnea) CPAP machine for home use at pressure 6-15cmw; starting pressure between 4-6 based on patient preference, full face mask x1/3month with a full face cushion x1/mo 1 Each 11 08/23/2023 Active medication order composerIndication s:JOO (obstructive sleep apnea) 08/02/2023 AHI- 14; diagnosis obstructive sleep apnea MRD #1 1 unit 0 08/31/2023 Active Active Problems Problem Noted Date Diagnosed Date Paroxysmal atrial fibrillation 04/28/2023 S/P MVR (mitral valve repair) 04/20/2022 Overview: Mitral Valve Repair: Lemuel Dumont Physio II Annuloplasty Ring 36 mm by Dumont [employer]. Model 5200, SN [id number], Exp 01/26/2027. Implanted by Dr. Tesfaye on 04/20/2022. neocords Pericarditis 12/15/2021 Bilateral pulmonary infiltrates on chest x-ray 0 12/15/2021 Post covid-19 condition, unspecified 12/14/2021 Mitral valve prolapse 12/14/2021 GERD (gastroesophageal reflux disease) Encounters Date Type Department Care Team Description 08/30/2023 Telephone [facility] [address] [place] [address] Juan Cutler MD Medication Management 08/24/2023 Orders Only [facility] Scanner 1 scan: (1-Ord) INCOMING RECORDS-STRESS TEST, [facility], 08/24/2023 08/23/2023 3:00 PM CDT Telemedicine [facility] [address] [place] [address] Juan Cutler MD Sleep Consult; Telehealth (Virtual visit, no vitals taken.) from Last 3 Months Family History Medical History Relation Name Comments Hyperlipidemia Brother Hypertension Father Hypertension Mother Relation Name Status Comments Brother Father Mother Social History Tobacco Use Types Packs/Day Years Used Date Smoking Tobacco: Never Smokeless Tobacco: Never Alcohol Use Standard Drinks/Week Comments Yes 0 (1 standard drink = 0.6 oz pur e alcohol) 3 drinks per week. PHQ-2 Answer Date Recorded PHQ-2 TOTAL SCORE 2 05/07/2022 Social Connections Answer Date Recorded Frequency of Communication with Friends and Fami ly Not on file 10/31/2021 Financial Resource Strain Answer Date R ecorded Difficulty of Paying Living Expenses Not on file 10/31/2021 Difficulty of Paying Living Expenses Not on file 10/31/2021 Sex and Gender Information Value Date Recorded Sex Assigned at Not on file Gender Identity Not on file Sexual Orientation Not on file Obstetrics History Last Filed Vital Signs Vital Sign Reading Time Taken Comments Blood Pressure 109/73 04/28/2023 8:45 AM CDT Pulse 60 04/28/2023 8:44 AM CDT Temperature 36.5 ??C (97.7 ??F) 04/25/2022 7:55 AM CD T Respiratory Rate 20 05/07/2022 11:00 AM CDT Oxygen Saturation 97% 04/28/2023 8:44 AM CDT Inhaled Oxygen Concentration - - Weight 83.9 kg (185 lb) 04/28/2023 8:44 AM CDT Height 177.8 cm (5' 10) 04/28/2023 8:44 AM CDT Body Mass Index 26.54 04/28/2023 8:44 AM CDT Plan of Treatment Health Maintenance Due Date Last Done Comments Tdap 1977 HIV for age 15-65 1981 Hepatitis C screening for age 18-79 1984 Tetanus booster 1986 Colonoscopy through age 75 2011 Zoster (shingles) series for age 50+ (1 of 2) 2016 Depression screening for age 12+ 05/10/2023 05/10/2022, 05/07/2022 COVID-19 vaccine series ( season) 2023 01/26/2022, 02/07/2021, 01/17/2021 Influenza for age 50-64 07/01/2023 BMI (ht and wt on same day) for age 18+ 04/28/2024 04/28/2023, 05/19/2022, 05/18/2022, Additional history exists Lipids for age 45-75 12/15/2026 12/15/2021 Pneumococcal series for age 6-64 Aged Out No longer eligible based on patient's age to complete this topic Medical Devices Implanted Type Area Housekeeping Staff Device Identifier Shelf Expiration Date Model / Serial / Lot Ring Mitral 36mm Physio Ii - [id number] Implanted:Qty: 1 on 04/20/2022 by Caden Tesfaye MD at [facility] N/A: Mitral Valve Dumont [employer] Darlene 01/26/2027 [id number] / / [id number] Procedures Procedure Name Priority Date/Time Associated Diagnosis Comments SCAN CORRESP-DIAGNOSTICS 08/24/2023 12:00 AM CDT from Last 3 Months Results * SCAN CORRESP-DIAGNOSTICS (08/24/2023 12:00 AM CDT) Scanner OTHER from Last 3 Months Advance Directives Latest Code Status on File Code Status Date Activated Date Inactivated Comments Full Code 04/21/2022 10:57 AM 04/25/2022 5:29 PM Question Answer Comments Code Status Discussion: Reviewed Preferences Code Status History Code Status Date Activated Date Inactivated Comments Full Code 04/20/2022 6:07 AM 04/21/2022 10:57 AM Question Answer Comments Code Status Discussion: Unable to Assess Preferences, Provider to review later Full Code 12/13/2021 8:20 PM 12/18/2021 4:05 PM Question Answer Comments Code Status Discussion: Reviewed Preferences Care Teams Fur Dyer Relationship Specialty Start Date End Date Teja Huff MD [address] [place] [address] PCP - General Family Practice 04/20/21
--- OUTSIDE RECORDS SUMMARY | 2023-11-23 09:04 | XMS_ITS ---
Author Name Unknown Organization [facility] Address [address] [place] [address] Care Team Providers Care Project Engineer Chemicals Name Role Phone Unavailable Unavailable Unavailable Surgery Details Not on file Complications Check Surgery Details section. Procedure Estimated Blood Loss Check Surgery Details section. Procedure Findings Check Surgery Details section. Procedure Specimens Taken Check Surgery Details section.
--- OUTSIDE RECORDS SUMMARY | 2023-11-23 09:04 | XMS_ITS | Encounter Summary ---
Author Name Unknown Organization [facility] Address [address] [place] [address] Care Team Providers Care P D Driver Name Role Phone Unavailable Primary Care Provider Unavailabl e Encounter Details Date Type Department Care Team (Latest Contact Info) Description 09/08/2023 9:52 AM RIGGING ENGINEER - 09/08/2023 10:[address] [facility] Hospital Encounter Department of Laboratory Medicine and Pathology, [facility], in [place], [place] [address] [place] [address] Suraj Pelaez M.D. [address] [place] [phone] Persistent Migraine Aura Without Cerebral Infarction Not Intractable Without Status Migrainosus Discharge Disposition: Home or Self Care Social History Tobacco Use Types Packs/Day Years Used Date Smoking Tobacco: Never Smokeless Tobacco: Never Alcohol Use Standard Drinks/Week Comments Yes 9 (1 standard drink = 0.6 oz pur e alcohol) Overall Financial Resource Strain (CARDIA) Answe r Date Recorded How hard is it for you to pa y for the very basics like food, housing, medical care, and heating? Not hard at all 09/01/2023 Exercise Vital Sign Answer Date Recorde d [...] the money to buy more. Never true 11/02/20 23 Within the past 12 months, t [...] things needed for daily living? No 09/01/2023 Nutrition Answer Date Recorded Nutrition: EVOO Fat [...] your living situation today? I have a [facility] place to live 09/01/2023 Sex and Gender Information Value Date Recorded Sex Assigned at Male 09/01/2023 8:44 AM CDT Gender Identity Male 09/01/2023 8:44 AM CDT Sexual Orientation Straight 09/01/2023 8: 44 AM CDT documented as of this encounter Medications at Time of Discharge Medication Sig Dispensed Refills Start Date End Date amoxicillin (AMOXIL) 500 mg capsule Take 2,000 mg by mouth. Prior to dental appointments 0 07/26/2022 arginine (L-ARGININE) 1,000 mg per tablet Take 1 tablet (1,000 mg total) by mouth 3 (three) times a day. 270 tablet 3 09/15/2023 09/14/[address] tablet Take 81 mg by mouth daily. 0 04/21/2022 LORazepam (ATIVAN) 0.5 mg tablet Take 1 tablet by mouth at bedtime as needed for anxiety. 0 06/29/2023 melatonin 10 mg tablet Take 10 mg by mouth at bedtime. 0 MULTIVITAMIN ORAL Take by mouth daily. 0 sildenafiL (VIAGRA) 50 mg tablet Take 50 mg by mouth as needed. 0 07/31/2023 metoprolol tartrate (LOPRESSOR) 25 mg tablet Take 25 mg by mouth 2 (two) times a day. 0 10/04/2023 documented as of this encounter Plan of Treatment Not on file documented as of this encounter Procedures Procedure Name Priority Date/Time Associated Diagnosis Comments C-REACTIVE PROTEIN, HIGH SENSITIVITY, S/P Routine 09/08/2023 10:09 AM RIGGING ENGINEER Persistent Migraine Aura Without Cerebral Infarction Not Intractable Without Status Migrainosus documented in this encounter Results * C-Reactive Protein, High Sensitivity (09/08/2023 10:09 AM RIGGING ENGINEER) C-Reactive Protein, High Sens, S 1.7 <2.0 mg/L 09/08/2023 11:10 AM RIGGING ENGINEER DTL Blood (Blood, Venous) 09/08/2023 10:09 AM RIGGING ENGINEER 09/08/2023 10:53 AM RIGGING ENGINEER Suraj Pelaez M.D. LAB BLOOD ADD-ON [facility] [address] [place] [address], [facility] DTL [facility] [address] [place] [address] documented in this encounter Visit Diagnoses Diagnosis Persistent Migraine Aura Without Cerebral Infarction Not Intractable Without Status Migrainosus documented in this encounter
--- OUTSIDE RECORDS SUMMARY | 2023-11-23 09:04 | XMS_ITS | Encounter Summary ---
Author Name Unknown Organization [facility] Address [address] [place] [address] Care Team Providers Care Naphthalene Still Operator Name Role Phone Unavailable Primary Care Provider Unavailabl e Encounter Details Date Type Department Care Team (Latest Contact Info) Description 09/06/2023 8:31 AM JIG MILL OPERATOR - 09/06/2023 11:59 PM JIG MILL OPERATOR Hospital Encounter Department of Laboratory Medicine and Pathology, [facility], in [place], [place] [address] [place] [address] Raven Chandra APRN, C.N.P., D.N.P. [address] [place] [phone] Hypertension Essential Primary; Regurgitation Mitral; Atrial Fibrillation Unspecified (HCC); Repair Mitral Valve Status Post; Post COVID-19 Condition Discharge Disposition: Home or Self Care Social [...] money to buy more. Never true 09/01/20 Within the past 12 months, t he [...] your living situation today? I have a [facility] place to live 09/01/2023 Sex and [...] Procedure Name Priority Date/Time Associated Diagnosis Comments LIPID PANEL, S Routine 09/06/2023 8:57 AM JIG MILL OPERATOR Hypertension Essential Primary Regurgitation Mitral Atrial Fibrillation Unspecified (HCC) Repair Mitral Valve Status Post Post COVID-19 Condition THYROID FUNCTION CASCADE, S Routine 09/06/2023 8:57 AM JIG MILL OPERATOR Hypertension Essential Primary Regurgitation Mitral Atrial Fibrillation Unspecified (HCC) Repair Mitral Valve Status Post Post COVID-19 Condition NT-PRO B-TYPE NATRIURETIC PEPTIDE (BNP), S Routine 09/06/2023 8:57 AM JIG MILL OPERATOR Hypertension Essential Primary Regurgitation Mitral Atrial Fibrillation Unspecified (HCC) Repair Mitral Valve Status Post Post COVID-19 Condition CBC WITH DIFFERENTIAL, B Routine 09/06/2023 8:57 AM JIG MILL OPERATOR Hypertension Essential Primary Regurgitation Mitral Atrial Fibrillation Unspecified (HCC) Repair Mitral Valve Status Post Post COVID-19 Condition BASIC METABOLIC PANEL, S/P Routine 09/06/2023 8:57 AM JIG MILL OPERATOR Hypertension Essential Primary Regurgitation Mitral Atrial Fibrillation Unspecified (HCC) Repair Mitral Valve Status Post Post COVID-19 Condition documented in this encounter Results * (ABNORMAL) NT-Pro B-Type Natriuretic Peptide (BNP) (09/06/2023 8:57 AM JIG MILL OPERATOR) NT-Pro BNP 124(H) <=88 pg/mL 09/06/2023 9:59 AM JIG MILL OPERATOR DTL Comment: NT-proBNP values less than 300 [...] failure. Blood (Blood, Venous) 09/06/2023 8:57 AM JIG MILL OPERATOR 09/06/2023 9:28 AM JIG MILL OPERATOR Raven Chandra APRN, C.N.P., Vikas.N.Celso FITCH BLOOD ADD-ON [facility] [address] [place] [address], [facility] [address] [place] [address] * Lipid Panel (09/06/2023 8:57 AM JIG MILL OPERATOR) Triglycerides 112 mg/dL 09/06/2023 9:59 AM JIG MILL OPERATOR DTL Comment: ----REFERENCE VALUE---- Normal: <150 mg/dL Borderline High: 150-199 mg/dL High: 200-499 mg/dL Very High: > or =500 mg/dL Cholesterol, Total 184 mg/dL 2022 9:59 AM JIG MILL OPERATOR DTL Comment: ----REFERENCE VALUE---- Desirable: < 200 mg/dL Borderline High: 200 - 239 mg/dL High: > or = 240 mg/dL Cholesterol, LDL, Calculated 113 mg/dL 09/06/2023 9:59 AM JIG MILL OPERATOR DTL Comment: ----REFERENCE VALUE---- Desirable: <100 mg/dL Above Desirable: 100-129 mg/dL Borderline High: 130-159 mg/dL High: 160-189 mg/dL Very High: >=190 mg/dL ----ADDITIONAL INFORMATION---- LDL cholesterol calculated using the Purvis/NIH equation. Cholesterol, HDL, S 51 >=40 mg/dL 09/06/2023 9:59 AM JIG MILL OPERATOR DTL Cholesterol, Non-HDL, Calculated 133 mg/dL 09/06/2023 9:59 AM JIG MILL OPERATOR DTL Comment: ----REFERENCE VALUE---- Desirable: <130 mg/dL Above Desirable: 130-159 mg/dL Borderline High: 160-189 mg/dL High: 190-219 mg/dL Very High: > or =220 mg/dL Fasting (8 HR or more) Yes 09/06/2023 9:28 AM JIG MILL OPERATOR DTL Blood (Blood, Venous) 09/06/2023 8:57 AM JIG MILL OPERATOR 09/06/2023 9:28 AM JIG MILL OPERATOR Mychal Cortez APRN.N.P., ShannonNAugustPAugust [place] B BLOOD ADD-ON Performing Organization Address City/[facility]/ZIP Co de Phone Number [facility] [address] [place] [address] * Thyroid Function [place] (09/06/2023 8:57 AM JIG MILL OPERATOR) TSH, Sensitive 4.2 0.3 - 4.2 mIU/L 09/06/2023 9:59 AM JIG MILL OPERATOR DTL Blood (Blood, Venous) 09/06/2023 8:57 AM JIG MILL OPERATOR 09/06/2023 9:28 AM JIG MILL OPERATOR Mychal Cortez APRN.N.P., Vikas.N.PAugust [place] B BLOOD ADD-ON Performing Organization Address City/[facility] Co de Phone Number [facility] [address] [place] [address] * Basic Metabolic Panel (09/06/2023 8:57 AM JIG MILL OPERATOR) Potassium, S 4.7 3.6 - 5.2 mmol/L 09/06/2023 9:59 AM JIG MILL OPERATOR DTL Sodium, S 137 135 - 145 mmol/L 09/06/2023 9:59 AM JIG MILL OPERATOR DTL Chloride, S 102 98 - 107 mmol/L 09/06/2023 9:59 AM JIG MILL OPERATOR DTL Bicarbonate, S 26 22 - 29 mmol/L 09/06/2023 9:59 AM JIG MILL OPERATOR DTL Anion Gap 9 7 - 15 09/06/2023 9:59 AM JIG MILL OPERATOR DTL BUN (Blood Urea Nitrogen), S 15 8 - 24 mg/dL 09/06/2023 9:59 AM JIG MILL OPERATOR DTL Creatinine 1.08 0.74 - 1.35 mg/dL 09/06/2023 9:59 AM JIG MILL OPERATOR DTL Estimated GFR (eGFR) 81 >=60 mL/min/BSA 09/06/2023 9:59 AM JIG MILL OPERATOR DTL Comment: Estimated GFR calculated using the 2020 CKD_EPI creatinine equation. Calcium, Total, S 9.8 8.6 - 10.0 mg/dL 09/06/2023 9:59 AM JIG MILL OPERATOR DTL Glucose, S 112 70 - 140 mg/dL 09/06/2023 9:59 AM JIG MILL OPERATOR DTL Blood (Blood, Venous) 09/06/2023 8:57 AM JIG MILL OPERATOR 09/06/2023 9:28 AM JIG MILL OPERATOR Raven Chandra APRN, C.N.P., D.N.P. SUBHA Cruz BLOOD ADD-ON [place] [address] [place] [address], [facility] [place] [address] [place] [address] * CBC with Differential, Blood (09/06/2023 8:57 AM JIG MILL OPERATOR) Hemoglobin 15.1 13.2 - 16.6 g/dL 09/06/2023 9:34 AM JIG MILL OPERATOR DTL Hematocrit 43.7 38.3 - 48.6 % 09/06/2023 9:34 AM JIG MILL OPERATOR DTL Erythrocytes 5.13 4.35 - 5.65 x10(12)/L 09/06/2023 9:34 AM JIG MILL OPERATOR DTL MCV 85.2 78.2 - 97.9 fL 09/06/2023 9:34 AM JIG MILL OPERATOR DTL RBC Distrib Width 12.5 11.8 - 14.5 % 09/06/2023 9:34 AM JIG MILL OPERATOR DTL Platelet Count 257 135 - 317 x10(9)/L 09/06/2023 9:34 AM JIG MILL OPERATOR DTL Leukocytes 5.8 3.4 - 9.6 x10(9)/L 09/06/2023 9:34 AM JIG MILL OPERATOR DTL Neutrophils 3.38 1.56 - 6.45 x10(9)/L 09/06/2023 9:34 AM JIG MILL OPERATOR DHPM Lymphocytes 1.50 0.95 - 3.07 x10(9)/L 09/06/2023 9:34 AM JIG MILL OPERATOR DTL Monocytes 0.61 0.26 - 0.81 x10(9)/L 09/06/2023 9:34 AM JIG MILL OPERATOR DTL Eosinophils 0.26 0.03 - 0.48 x10(9)/L 09/06/2023 9:34 AM JIG MILL OPERATOR DTL Basophils 0.05 0.01 - 0.08 x10(9)/L 09/06/2023 9:34 AM JIG MILL OPERATOR DTL Blood (Blood, Venous) 09/06/2023 8:57 AM JIG MILL OPERATOR 09/06/2023 9:14 AM JIG MILL OPERATOR Raven Chandra APRN, C.N.P., D.N.P. SUBHA Cruz BLOOD ADD-ON [facility] [address] [place] [address], [facility] DTL [facility] [address] [place] [address] [facility] [address] [place] [address] documented in this encounter Visit Diagnoses Diagnosis Hypertension Essential Primary Regurgitation Mitral Atrial Fibrillation Unspecified (HCC) Repair Mitral Valve Status Post Post COVID-19 Condition documented in this encounter
--- OUTSIDE RECORDS SUMMARY | 2023-11-23 09:04 | XMS_ITS | Encounter Summary ---
Author Name Unknown Organization [facility] Address [address] [place] [address] Care Team Providers Care Program Management Specialist Name Role Phone Unavailable Primary Care Provider Unavailabl e Reason for Visit * Reason Comments Med Refill Encounter Details Date Type Department Care Team ([facility] st Contact Info) Description 10/03/2023 Refill Department of Cardiovascular Medicine in [place], [place] [address] [place] [address] Reilly Escobar M.D. [address] [place] [address] Med Refill Social History Tobacco Use Types Packs/Day Years [...] your living situation today? I have a [facility] place to live 09/01/2023 Sex and Gender Information Value Date Recorded Sex Assigned at Male 09/01/2023 8:44 AM CDT Gender Identity Male 09/01/2023 8:44 AM CDT Sexual Orientation Straight 09/01/2023 8: 44 AM CDT documented as of this encounter Plan of Treatment Not on file documented as of this encounter Visit Diagnoses Not on filedocumented in this encounter
--- OUTSIDE RECORDS SUMMARY | 2023-11-23 09:04 | XMS_ITS | Encounter Summary ---
Author Name Unknown Organization [facility] Address [address] [place] [id number] Care Team Providers Care Kit Assembler Name Role Phone Unavailable Primary Care Provider Unavailabl e Reason for Referral * Outpatient (Routine) - Closed Specialty Diagnoses / Procedures Referred By Contac t Referred To Contact Neurology Diagnoses Persistent Migraine Aura Without Cerebral Infarction Not Intractable Without Status Migrainosus Suraj Pelaez M.D. [address] [place] [address] [facility] Referral ID Status Reason Start Date Expiration Date Visits Re quested Visits Authorized [id number] Closed 09/06/2023 09/05/2024 1 1 OPEDICS TEACHER * Outpatient (Routine) - Closed Specialty Diagnoses / Procedures Referred By Contac t Referred To Contact Diagnoses Mitral Valve Prolapse Procedures Cardiopulmonary (VO2) Exercise Test Suraj Pelaez M.D. [address] [place] [address] [facility] Referral ID Status Reason Start Date Expiration Date Visits Re quested Visits Authorized [id number] Closed 09/06/2023 09/05/2024 1 1 OPEDICS TEACHER * Outpatient (Routine) - Closed Specialty Diagnoses / Procedures Referred By Contac t Referred To Contact Diagnoses Mitral Valve Prolapse Procedures CV EndoPAT Suraj Pelaez M.D. [address] [place] [address] [facility] Referral ID Status Reason Start Date Expiration Date Visits Re quested Visits Authorized [id number] Closed 09/06/2023 09/05/2024 1 1 OPEDICS TEACHER * Outpatient (Routine) - Authorized Specialty Diagnoses / Procedures Referred By Jj aguilar Referred To Contact Sleep Medicine Diagnoses Obstructive Sleep Apnea Adult Jagdish Navarro M.D. [address] [place] [address] [facility] Referral ID Status Reason Start Date Expiration Date Visits Requested Visits Authorized [id number] Authorized Specialty Services Required 09/06/2023 09/05/2024 1 1 OPEDICS TEACHER Reason for Visit * Appointment Request (Routine) - Closed Specialty Diagnoses / Procedures Referred By Jj aguilar Referred To Contact Cardiovascular Disease Referral ID Status Reason Start Date Expiration Date Visits Re quested Visits Authorized [id number] Closed 06/27/2023 06/26/2024 1 1 Encounter Details Date Type Department Care Team (Latest Contact Info) Description 09/06/2023 1:15 PM ORTHOPEDICS TEACHER Comprehensive Visit Department of Cardiovascular Medicine in [place], [place] [address] [place] [address] Jagdish Navarro M.D. [address] [place] [phone] Obstructive Sleep Apnea Adult (Primary Dx); Mitral Valve Prolapse; Persistent Migraine Aura Without Cerebral Infarction Not Intractable Without Status Migrainosus Social History Tobacco Use Types Packs/Day Years [...] your living situation today? I have a [facility] place to live 09/01/2023 Sex and Gender Information Value Date Recorded Sex Assigned at Male 09/01/2023 8:44 AM CDT Gender Identity Male 09/01/2023 8:44 AM CDT Sexual Orientation Straight 09/01/2023 8: 44 AM CDT documented as of this encounter Last Filed Vital Signs Vital Sign Reading Time Taken Comments Blood Pressure 115/69 09/06/2023 1:11 PM ORTHOPEDICS TEACHER Pulse 64 09/06/2023 1:11 PM ORTHOPEDICS TEACHER Temperature - - Respiratory Rate - - Oxygen Saturation - - Inhaled Oxygen Concentration - - Weight 85.6 kg (188 lb 11.4 oz) 09/06/2023 1:11 PM ORTHOPEDICS TEACHER Height 181.4 cm (5' 11.42) 09/06/2023 1:11 PM C Body Mass Index 26.01 09/06/2023 1:11 PM ORTHOPEDICS TEACHER documented in this encounter Progress Notes * Suraj Pelaez M.D. - 09/06/2023 1:15 PM CST ASSESSMENT / PLAN This is a supervisory note for Dr. Navarro. I reviewed the outside medical records as well as the current findings, assessment and recommendations of Dr. Navarro and then spoke in more detail with Mr. Cage. He describes symptoms of a retrosternal tightness and shortness of breath that occur predominantly with exertion but which are variable in their behavior. Once he has them, he can usually keepgoing if he slows down. He tries to keep under a heart rate of 120 when he is exercising. He has a long history of headache which sounds as if it is more of an ocular kind of migraine with an aura ofkaleidoscopic changes that sometimes followed by headache. There is not a lateralizing component rosemarie consistent basis from his current description. He also does describe symptoms of Raynaud's phenomenon. The current symptoms to me are more consistent with endothelial dysfunction and may fit well with some of the other symptoms, including his Raynaud's and headache symptoms. It is conceivable that there still may be some degree of underlying inflammatory disease causing microvascular angiitis but I think this is unlikely. It would need to be considered in the context of his other symptoms. Sleep apnea may be also a contributing component since we have identified that he has significant sleep apnea but he is not yet started on definitive therapy. As he progresses with treatment for the sleep apnea, his symptoms may actually improve as well. I would suggest that we start with quantitative stress testing to help him outlined what the safestlevel of exercise is. I would obtain a CV endo PAT to look for signs of endothelial dysfunction. From there, we could consider empiric therapy with L arginine and perhaps even a calcium channel paulina as well as a statin for endothelial stabilization. I would also suggest consultation with our colleagues in Neurology regarding the symptoms of visual aura and headache. I discussed the plan with him and he wishes to proceed. OPEDICS TEACHER documented in this encounter Consult Notes * Jagdish Navarro M.D. - 09/06/2023 1:15 PM CST GENERAL CARDIOLOGY CLINIC-INITIAL CONSULT NOTE Referring Provider: No referring provider defined for this encounter. SUBJECTIVE CHIEF COMPLAINT / REASON FOR CONSULT No chief complaint on file. HISTORY OF PRESENT ILLNESS Mr. Akash Del Castillo is a pleasant 57 y.o. male who presents to the [facility] for evaluation of chest tightness and shortness of breath. His medical comorbidities include, butnot limited to, bileaflet mitral valve prolapse c/b flail posterior leaflet and severe MR s/p repair with a 36 mm Lemuel Dumont Physio II annuloplasty ring, post covid myopericarditis, s/p MAZE and left atrial appendage ligation. Briefly, he describes retrosternal tightness and shortness of breath on exertion but his symptoms are not consistently happening. He feels that he has to slow down when working out and tries to keep a low heart rate. He also does endorse a history of migraine with aura and Raynaud's phenomena. Past Medical History: Diagnosis Date Asthma NOS 06/29/23 Atrial Fibrillation Unspecified ([facility]) Cataract Aug 22 Heart Failure NOS 04/28/23 Hypertension NOS 12/14/21 Irritable Bowel Syndrome Without Diarrhea 10 yrs ago Myocarditis (HCC) 10/2021 Pneumonia 10 yrs ago Skin Cancer (Primary) NOS Jul 2021 Sleep Apnea 08/02/23 ST Elevation Myocardial Infarction Of Unspecified Site ([facility]) 12/14/21 Past Surgical History: Procedure Laterality Date BUNIONECTOMY CARDIOVERSION MITRAL VALVE REPAIR 03/2022 NASAL SEPTUM SURGERY SINUS SURGERY 5 yrs ago SKIN LESION EXCISION TONSILLECTOMY Social History Tobacco Use Smoking status: Never Smokeless tobacco: Never Vaping Use Vaping Use: never used Substance Use Topics Alcohol use: Yes Alcohol/week: 9.0 standard drinks of alcohol Types: 1 Cans of beer, 8 Standard drinks or equivalent per week Drug use: Never Family History Problem Relation Age of Onset Hypertension Mother Hypertension Father Skin cancer Father Diabetes Father Parkinson disease Father Hyperlipidemia Sister Hyperlipidemia Brother Allergies Allergen Reactions Mold Other (see comments) congestion Penicillins Rash At age 6. Current Outpatient Medications: amoxicillin (AMOXIL) 500 mg capsule, Take 2,000 mg by mouth. Prior to dental appointments, Disp: , Rfl: aspirin [address] tablet, Take 81 mg by mouth daily., Disp: , Rfl: LORazepam (ATIVAN) 0.5 mg tablet, Take 1 tablet by mouth at bedtime as needed for anxiety., Disp: ,Rfl: melatonin 10 mg tablet, Take 10 mg by mouth at bedtime., Disp: , Rfl: metoprolol tartrate (LOPRESSOR) 25 mg tablet, Take 25 mg by mouth 2 (two) times a day., Disp: , Rfl: MULTIVITAMIN ORAL, Take by mouth., Disp: , Rfl: sildenafiL (VIAGRA) 50 mg tablet, Take 50 mg by mouth as needed., Disp: , Rfl: REVIEW OF SYSTEMS All other systems reviewed and are negative. OBJECTIVE There were no vitals filed for this visit. PHYSICAL EXAMINATION Constitutional Appearance: He is not ill-appearing. Cardiovascular Rate and Rhythm: Normal rate and regular rhythm. Heart sounds: No murmur heard. Pulmonary Effort: Pulmonary effort is normal. Breath sounds: No wheezing. Abdominal General: Abdomen is flat. Bowel sounds are normal. Tenderness: There is no abdominal tenderness. Musculoskeletal General: Normal range of motion. Right lower leg: No edema. Left lower leg: No edema. Skin General: Skin is warm and dry. Neurological General: No focal deficit present. Mental Status: He is alert. Mental status is at baseline. DIAGNOSTICS I have reviewed the patient's current laboratory, imaging, and other diagnostic studies. * Comparison is made to CMR study from 03/02/2022 1) There is interval successful MV repair with marked improvement of LV remodeling to now a normal LV size (LVEDVi reduced from 120 to 91 ml/m2). - Normal systolic function, LVEF=57%. Normal LV wall thickness. Typical post- operative paradoxical septal motion. - Discrete basal epicardial/midwall non-ischemic fibrosis noted at the basal inferolateral segment in keeping with history of myocarditis. No evidence of myocardial infarction or infiltrative process. 2) Mild residual MR (reg. volume 19 ml; reg. fraction=18%). No MALACHI. Mild aortic regurgitation (reg. volume=12 ml; reg. fraction=14%). 3) Normal RV size and systolic function, RVEF=54%. 4) Normal pericardial thickness without enhancement and/or effusion. No signs for pericarditis. 5) Mildly dilated aortic root (39 x 42 x 41 mm - sinus to sinus - systolic measurement). Normal thoracic aorta caliber (35 mm). SUMMARY LEFT VENTRICLE: Quantitative LVEF 57 %. LV wall thickness is normal. LV cavity size is normal. LV systolic function is normal. There is no LV mass/thrombus. VIABILITY: LV scar size is 2 %. RIGHT VENTRICLE: Quantitative RVEF 54 %. RV wall thickness is normal. RV cavity size is normal. RV systolic function is normal. There is no RV mass/thrombus. LV/RV SEPTUM: There is paradoxical septal motion (post-op, LBBB, or paced). LA/RA SEPTUM: The LA/RA septum is normal. LEFT ATRIUM: LA cavity size is normal. There is no LA mass/thrombus. RIGHT ATRIUM: The right atrium is normal. PERICARDIUM: Pericardium is normal. There is no pericardial effusion. There are no signs of increased intrapericardial pressures. PLEURAL EFFUSION: There is no pleural effusion. AORTIC VALVE: The aortic valve annulus is normal in size. Aortic valve leaflets are normal. There is no aortic valve mass, thrombus, or vegetation. There is mild aortic regurgitation. There is no aortic stenosis. Aortic regurgitant volume 12 ml. Aortic regurgitant fraction 15 %. MITRAL VALVE: There is mild mitral regurgitation. Mitral regurgitant fraction 18 %. Mitral regurgitant volume 19 ml. Mitral valve has a prosthetic ring. Mitral valve leaflets are normal. The mitral valve annulus is normal in size. The prosthetic mitral valve is well seated. There is no mitral valve mass, thrombus, or vegetation. There is no mitral stenosis. TRICUSPID VALVE: The tricuspid valve annulus is normal in size. Tricuspid valve leaflets are normal. There is no tricuspid valve mass, thrombus, or vegetation. There is trivial tricuspid regurgitation. There is no tricuspid stenosis. Tricuspid regurgitant volume 14 ml. Tricuspid regurgitant fraction 14 %. PULMONIC VALVE: The pulmonic valve annulus is normal in size. Pulmonic valve leaflets are normal. There is no pulmonic valve mass, thrombus, or vegetation. There is no pulmonic regurgitation. There is no pulmonic stenosis. AORTIC ROOT: The aortic root is normal. CORE EXAM MEASUREMENTS -------- VOLUMETRIC ANALYSIS . . LV Reference RV Reference +------+ +------+ +------+ + EDV ml 183 (113-196) 190 (111-210) ml/m^2 91 (62-97) 94 (59-105) ESV ml 79 (29-74) 88 (25-85) ml/m^2 39 (15-37) 44 (13-42) CO L/min 6.66 6.53 L/min/m^2 3.30 3.23 MASS g 108 (107-184) g/m^2 53 (57-91) SV ml 104 (75-131) 102 (72-140) ml/m^2 52 (41-65) 51 (38-70) EF % 57 (58-76) 54 (53-79) '------+ +------+ +------+ ' CARDIAC OUTPUT HR: 64 BPM LA DIMENSIONS (LV SYSTOLE) VOLUME: 61 ml VOLUME NORMALIZED: 30.2 ml/m^2 RA DIMENSIONS (RV SYSTOLE) VOLUME: 93 ml VOLUME NORMALIZED: 46.1 ml/m^2 EXTRACELLULAR VOLUME MEASUREMENT PRE-CONTRAST T1 MYOCARDIUM: 1032 msec ECV: 24 % 17 SEGMENT -------- . . Segments Wall Motion Hyperenhancement Stress Perfusion Interpretation + + + + +----- + Base Anterior Normal/Hyper None Normal Base Anteroseptal Normal/Hyper None Normal Base Inferoseptal Normal/Hyper None Normal Base Inferior Normal/Hyper None Normal Base Inferolateral Normal/Hyper 26-50% Non-CAD Scar Base Anterolateral Normal/Hyper None Normal Mid Anterior Normal/Hyper None Normal Mid Anteroseptal Normal/Hyper None Normal Mid Inferoseptal Normal/Hyper None Normal Mid Inferior Normal/Hyper None Normal Mid Inferolateral Normal/Hyper None Normal Mid Anterolateral Normal/Hyper None Normal Apical Anterior Normal/Hyper None Normal Apical Septal Normal/Hyper None Normal Apical Inferior Normal/Hyper None Normal Apical Lateral Normal/Hyper None Normal [place] Normal/Hyper None Normal + + + + +----- + RV Segments Wall Motion Hyperenhancement Interpretation + + + + +----- + RV Basal Anterior Normal/Hyper None Normal RV Basal Inferior Normal/Hyper None Normal RV Mid Normal/Hyper None Normal RV Apical Normal/Hyper None Normal ' + + + +----- ' FINDINGS LV SCAR SIZE (17 SEGMENT): 2 % SCAN INFO GENERAL -------- SCANNER EDUCATIONAL SPECIALIST: SIEMENS MODEL: Aera CONTRAST AGENT TYPE: Gadavist GD CONCENTRATION: 1.0 M SETUP SCAN TYPE: Clinical PATIENT TYPE: Outpatient INCOMPLETE SCAN: No REASON(S) FOR SCAN: Eval pala valve(s) REFERRING PHYSICIAN: RACHEL BATISTA ATTENDING PHYSICIAN: RACHEL AUSTIN Patient Account [id number] ICD10 Codes Z98.890, I30.8, Z86.79 Report generated by [email or web address], a product of [employer] ASSESSMENT / PLAN #1 s/p mitral valve repair #2 chest pain #3 shortness of breath Mr. Akash Del Castillo is a pleasant 57 y.o. male who presents to the [facility] for evaluation of chest tightness and shortness of breath. His medical comorbidities include, butnot limited to, bileaflet mitral valve prolapse c/b flail posterior leaflet and severe MR s/p repair with a 36 mm Lemuel Dumont Physio II annuloplasty ring, post covid myopericarditis, s/p MAZE and left atrial appendage ligation. His symptoms are concerning for endothelial dysfunction in the setting of his migraine and Raynaud.We will obtain hs-CRP to rule out any underlying inflammatory disease causing microvascular angiitis. We will obtain CV endo PAT to look for sighs of endothelial dysfunction and will probably start him on L- arginine and eventually CCB+statin. He does have an abnormal sleep study and therefore he will follow up locally for definitive therapy. We will also place referral to neurology for his headaches. Otherwise we will follow up once his testing is back. Akash Del Castillo was seen by and staffed with Dr. Benigno Navarro M.D. [id number] Fellow- Cardiovascular Diseases 09/06/23 OPEDICS TEACHER documented in this encounter Miscellaneous Notes * Addendum Note - Jagdish Navarro M.D. - 09/06/2023 1:15 PM CSTAddended by: JAGDISH LAURENT AM on: 09/15/2023 01:11 PM Modules accepted: Orders OPEDICS TEACHER documented in this encounter Plan of Treatment Scheduled Referrals Name Type Priority Associated Diagnoses Orde r Schedule Sleep Medicine - General consult (clinic) Outpatient Referral Routine Obstructive Sleep Apnea Adult Expected: 09/06/2023 (Approximate), Expires: 12/07/2024 Neurology - Headache consult (clinic) Outpatient Referral Routine Persistent Migraine Aura Without Cerebral Infarction Not Intractable Without Status Migrainosus Expected: 09/06/2023 (Approximate), Expires: 12/07/2024 documented as of this encounter Results * CV EndoPAT (09/08/2023 2:51 PM ORTHOPEDICS TEACHER) Anatomical Region Laterality Modality Other 09/08/2023 2:30 PM ORTHOPEDICS TEACHER Narrative 09/08/2023 2:30 PM ORTHOPEDICS TEACHER Bilateral: Endo-PAT ?Endothelial Function ? Probe digit: [...] C-Reactive Protein, High Sensitivity (09/08/2023 10:09 AM ORTHOPEDICS TEACHER) C-Reactive Protein, High Sens, S 1.7 <2.0 mg/L 09/08/2023 11:10 AM ORTHOPEDICS TEACHER DTL Blood (Blood, Venous) 09/08/2023 10:09 AM ORTHOPEDICS TEACHER 09/08/2023 10:53 AM ORTHOPEDICS TEACHER Suraj Pelaez M.D. LAB BLOOD ADD-ON [facility] [address] [place] [address], [facility] DTL [facility] [address] [place] [address] * CARDIOPULMONARY (VO2) EXERCISE TEST (09/08/2023 10:04 AM ORTHOPEDICS TEACHER) 09/08/2023 9:07 AM ORTHOPEDICS TEACHER Narrative [facility] CV MERGE - 09/08/2023 11:20 AM ORTHOPEDICS TEACHER See PDF For Result Procedure Note Danis Johnson M.D., Ph.D. - 09/08/2023 See PDF For Result Suraj Pelaez M.D. CV STRESS PROCEDURES CV MERGE NA documented in this encounter Visit Diagnoses Diagnosis Obstructive Sleep Apnea Adult- Primary Mitral Valve Prolapse Persistent Migraine Aura Without Cerebral Infarction Not Intractable Without Status Migrainosus Mitral Valve Prolapse Mitral Valve Prolapse documented in this encounter
--- OUTSIDE RECORDS SUMMARY | 2023-11-23 09:04 | XMS_ITS | Referral Summary ---
Author Name Unknown Organization [facility] Address [address] [place] [address] Care Team Providers Care Department Sales Manager Name Role Phone Elsewhere, Pcp Primary Care Provider Unavailabl e Source Comments Patient records contain information from all sites at [facility]. For routine questions regarding patient records, call [phone] during business hours, M-F 8:00 AM - 5:00 PM Central Time. Record requests for emergency care only can be directed to [phone] at any time.[facility] Encounters Date Type Department Care Team Description 11/08/2023 11:00 AM HOME SUPERVISOR Comprehensive Visit Department of Neurology in [place], [place] [address] [place] [phone] Winnie Castillo M.D. Headache Chronic (Primary Dx); Persistent Migraine Aura Without Cerebral Infarction Not Intractable Without Status Migrainosus; Transient Ischemic Attack 11/07/2023 1:45 PM HOME SUPERVISOR Clinical Communication Virtual Review in [place], [place] 200 [place] [address] Pre-visit Intake 10/04/2023 Refill Department of Cardiovascular Medicine in [address] [phone] Yesica Mccollum R.N. Med Refill 10/03/2023 Refill Department of Cardiovascular Medicine in [address] [phone] El-AmReilly M.D. Med Refill 10/03/2023 11:15 AM HOME SUPERVISOR Office Visit Department of Cardiovascular Medicine in [address] [phone] El-AmReilly M.D. Endothelial Dysfunction Coronary Artery (HCC) (Primary Dx) 09/08/2023 9:52 AM HOME SUPERVISOR - 09/08/2023 10:36 AM HOME SUPERVISOR Hospital Encounter Department of Laboratory Medicine and Pathology, [facility] in [place], [place] [address] [place] [phone] Suraj Pelaez M.D. Persistent Migraine Aura Without Cerebral Infarction Not Intractable Without Status Migrainosus Discharge Disposition: Home or Self Care 09/08/2023 10:37 AM HOME SUPERVISOR - 09/08/2023 11:59 PM HOME SUPERVISOR Hospital Encounter Department of Vascular Medicine in [place], [place] [address] [place] [phone] Suraj Pelaez M.D. Mitral Valve Prolapse Discharge Disposition: Home or Self Care 09/08/2023 9:07 AM HOME SUPERVISOR - 09/08/2023 9:51 AM HOME SUPERVISOR Hospital Encounter Department of Cardiovascular Diseases in [place], [place] [address] [place] [phone] Suraj Pelaez M.D. Mitral Valve Prolapse Discharge Disposition: Home or Self Care 09/06/2023 8:31 AM HOME SUPERVISOR - 09/06/2023 11:59 PM HOME SUPERVISOR Hospital Encounter Department of Laboratory Medicine and Pathology, [facility] in [place], [place] [address] [place] [phone] Raven Chandra APRN, C.N.P., D.N.P. Hypertension Essential Primary; Regurgitation Mitral; Atrial Fibrillation Unspecified (HCC); Repair Mitral Valve Status Post; Post COVID-19 Condition Discharge Disposition: Home or Self Care 09/06/2023 1:15 PM HOME SUPERVISOR Comprehensive Visit Department of Cardiovascular Medicine in [place], [place] [address] [place] [phone] El-AmReilly M.D. Obstructive Sleep Apnea Adult (Primary Dx); Mitral Valve Prolapse; Persistent Migraine Aura Without Cerebral Infarction Not Intractable Without Status Migrainosus 09/05/2023 10:30 AM HOME SUPERVISOR Diagnostic Division of Pulmonary Medicine in [place], [place] [address] [place] [phone] Raven Chandra APRN C.N.P., D.N.P. Hypertension Essential Primary; Regurgitation Mitral; Atrial Fibrillation Unspecified (HCC); Repair Mitral Valve Status Post; Post COVID-19 Condition 09/05/2023 8:00 AM HOME SUPERVISOR - 09/05/2023 11:59 PM HOME SUPERVISOR Hospital Encounter Department of Cardiovascular Diseases in [place], [place] [address] [place] [phone] Raven Chandra APRN C.N.P., D.N.P. 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 [facility] have a [facility] place to live 09/01/2023 Sex and Gender Information Value Date Recorded Sex Assigned at Male 09/01/2023 8:44 AM CDT Gender Identity Male 09/01/2023 8:44 AM CDT Sexual Orientation Straight 09/01/2023 8: 44 AM CDT Last Filed Vital Signs Vital Sign Reading Time Taken Comments Blood Pressure 118/72 11/08/2023 11:08 AM HOME SUPERVISOR Pulse 52 11/08/2023 11:08 AM HOME SUPERVISOR Temperature - - Respiratory Rate - - Oxygen Saturation - - Inhaled Oxygen Concentration - - Weight 86.9 kg (191 lb 9.3 oz) 11/08/2023 11:08 AM HOME SUPERVISOR Height 182 cm (5' 11.65) 11/08/2023 11:08 AM CS T Body Mass Index 26.23 11/08/2023 11:08 AM HOME SUPERVISOR Plan of Treatment Not on file Medical Devices Implanted Type Area Filter Press Tender Device Identifier Shelf Expiration Date Model / Serial / Lot Epicardial Wires Cardiac Other Heart Description:Epicardial wires , 1.5T, 3T conditional, Normal/Normal scan mode. Claudine Marina 11/08/22 Annuloplasty Ring-04/20/2022 Implanted:04/20 (Quantity not on file) Vascular Other Heart Price [employer] 36 MM FESTUS PRICE PHYSIO II ANNULOPLASTY RING / / Description:price physio t ube ring 36 mm Festus Price Physio II annuloplasty ring Procedures Procedure Name Priority Date/Time Associated Diagnosis Comments CV ENDOPAT Routine 09/08/2023 2:51 PM HOME SUPERVISOR Mitral Valve Prolapse C-REACTIVE PROTEIN, HIGH SENSITIVITY, S/P Routine 09/08/2023 10:09 AM HOME SUPERVISOR Persistent Migraine Aura Without Cerebral Infarction Not Intractable Without Status Migrainosus CARDIOPULMONARY (VO2) EXERCISE TEST Routine 09/08/2023 10:04 AM HOME SUPERVISOR Mitral Valve Prolapse HOLTER MONITOR - IN CLINIC UNDERGROUND HEAVY EQUIPMENT OPERATOR Routine 09/06/2023 11:49 AM HOME SUPERVISOR Hypertension Essential Primary Regurgitation Mitral Atrial Fibrillation Unspecified (HCC) Repair Mitral Valve Status Post Post COVID-19 Condition NT-PRO B-TYPE NATRIURETIC PEPTIDE (BNP), S Routine 09/06/2023 8:57 AM HOME SUPERVISOR Hypertension Essential Primary Regurgitation Mitral Atrial Fibrillation Unspecified (HCC) Repair Mitral Valve Status Post Post COVID-19 Condition LIPID PANEL, S Routine 09/06/2023 8:57 AM HOME SUPERVISOR Hypertension Essential Primary Regurgitation Mitral Atrial Fibrillation Unspecified (HCC) Repair Mitral Valve Status Post Post COVID-19 Condition THYROID FUNCTION CASCADE, S Routine 09/06/2023 8:57 AM HOME SUPERVISOR Hypertension Essential Primary Regurgitation Mitral Atrial Fibrillation Unspecified (HCC) Repair Mitral Valve Status Post Post COVID-19 Condition BASIC METABOLIC PANEL, S/P Routine 09/06/2023 8:57 AM HOME SUPERVISOR Hypertension Essential Primary Regurgitation Mitral Atrial Fibrillation Unspecified (HCC) Repair Mitral Valve Status Post Post COVID-19 Condition CBC WITH DIFFERENTIAL, B Routine 09/06/2023 8:57 AM HOME SUPERVISOR Hypertension Essential Primary Regurgitation Mitral Atrial Fibrillation Unspecified (HCC) Repair Mitral Valve Status Post Post COVID-19 Condition ECG Routine 09/06/2023 8:20 AM HOME SUPERVISOR Hypertension Essential Primary Regurgitation Mitral Atrial Fibrillation Unspecified (HCC) Repair Mitral Valve Status Post Post COVID-19 Condition PUL HOME OVERNIGHT OXIMETRY Routine 09/05/2023 Hypertension Essential Primary Regurgitation Mitral Atrial Fibrillation Unspecified (HCC) Repair Mitral Valve Status Post Post COVID-19 Condition from Last 3 Months Results * CV EndoPAT (09/08/2023 2:51 PM HOME SUPERVISOR) Anatomical Region Laterality Modality Other 09/08/2023 2:30 PM HOME SUPERVISOR Narrative 09/08/2023 2:30 PM HOME SUPERVISOR Bilateral: Endo-PAT ?Endothelial Function ? Probe digit: [...] C-Reactive Protein, High Sensitivity (09/08/2023 10:09 AM HOME SUPERVISOR) C-Reactive Protein, High Sens, S 1.7 <2.0 mg/L 09/08/2023 11:10 AM HOME SUPERVISOR DTL Blood (Blood, Venous) 09/08/2023 10:09 AM HOME SUPERVISOR 09/08/2023 10:53 AM HOME SUPERVISOR Suraj Pelaez M.D. LAB BLOOD ADD-ON [facility] [address] [place] [address], [facility] [address] [place] [address] * CARDIOPULMONARY (VO2) EXERCISE TEST (09/08/2023 10:04 AM HOME SUPERVISOR) 09/08/2023 9:07 AM HOME SUPERVISOR Narrative MC CV MERGE - 09/08/2023 11:20 AM HOME SUPERVISOR See PDF For Result Procedure Note Danis Johnson M.D., Ph.D. - 09/08/2023 See PDF For Result Suraj Pelaez M.D. CV STRESS PROCEDURES CV MERGE NA * HOLTER MONITOR - IN CLINIC UNDERGROUND HEAVY EQUIPMENT OPERATOR (09/06/2023 11:49 AM HOME SUPERVISOR) Min Heart Rate 52 bpm INFOB IONIC [...] Duration 0 duration INFOBION IC MOME AF Pound 0 percent INFOBIONIC MOME Symptom Count 7 count INFOBI ONIC MOME 09/05/2023 8:28 AM HOME SUPERVISOR Narrative INFOBIONIC MOME - 09/06/2023 2:44 PM HOME SUPERVISOR 1. The basic rhythm was sinus. The [...] were seen singly. PVCs were seen singly. Leaf Sucker Operator: HERIBERTO Calixto/ HERIBERTO Funes Procedure Note Garrett [...] PACs were seen singly. PVCs were seensingly. Leaf Sucker Operator: HERIBERTO Calixto/ HERIBERTO Funes Raven Chandra APRN, C.N.P., D.N.P. CV CARDIAC SERVICES PROCEDURES INFOBIONIC MOME NA * Lipid Panel (09/06/2023 8:57 AM HOME SUPERVISOR) Triglycerides 112 mg/dL 09/06/2023 9:59 AM HOME SUPERVISOR DTL Comment: ----REFERENCE VALUE---- Normal: <150 mg/dL Borderline High: 150-199 mg/dL High: 200-499 mg/dL Very High: > or =500 mg/dL Cholesterol, Total 184 mg/dL 2022 9:59 AM HOME SUPERVISOR DTL Comment: ----REFERENCE VALUE---- Desirable: < 200 mg/dL Borderline High: 200 - 239 mg/dL High: > or = 240 mg/dL Cholesterol, LDL, Calculated 113 mg/dL 09/06/2023 9:59 AM HOME SUPERVISOR DTL Comment: ----REFERENCE VALUE---- Desirable: <100 mg/dL Above Desirable: 100-129 mg/dL Borderline High: 130-159 mg/dL High: 160-189 mg/dL Very High: >=190 mg/dL ----ADDITIONAL INFORMATION---- LDL cholesterol calculated using the Purvis/NIH equation. Cholesterol, HDL, S 51 >=40 mg/dL 09/06/2023 9:59 AM HOME SUPERVISOR DTL Cholesterol, Non-HDL, Calculated 133 mg/dL 09/06/2023 9:59 AM HOME SUPERVISOR DTL Comment: ----REFERENCE VALUE---- Desirable: <130 mg/dL Above Desirable: 130-159 mg/dL Borderline High: 160-189 mg/dL High: 190-219 mg/dL Very High: > or =220 mg/dL Fasting (8 HR or more) Yes 09/06/2023 9:28 AM HOME SUPERVISOR DTL Blood (Blood, Venous) 09/06/2023 8:57 AM HOME SUPERVISOR 09/06/2023 9:28 AM HOME SUPERVISOR Raven Chandra APRN, C.N.P., D.N.P. LA B BLOOD ADD-ON Performing Organization Address [facility] Co de Phone Number [facility] [address] [place] [address] * Thyroid Function [place] (09/06/2023 8:57 AM HOME SUPERVISOR) TSH, Sensitive 4.2 0.3 - 4.2 mIU/L 09/06/2023 9:59 AM HOME SUPERVISOR DTL Blood (Blood, Venous) 09/06/2023 8:57 AM HOME SUPERVISOR 09/06/2023 9:28 AM HOME SUPERVISOR Raven Chandra APRN, C.N.P., D.N.P. LA B BLOOD ADD-ON Performing Organization Address [facility]/ZIP Co de Phone Number [facility] [address] [place] [address] * (ABNORMAL) NT-Pro B-Type Natriuretic Peptide (BNP) (09/06/2023 8:57 AM HOME SUPERVISOR) [facility] NT-Pro BNP 124(H) <=88 pg/mL 09/06/2023 9:59 AM HOME SUPERVISOR DTL Comment: NT-proBNP values less than 300 [...] failure. Blood (Blood, Venous) 09/06/2023 8:57 AM HOME SUPERVISOR 09/06/2023 9:28 AM HOME SUPERVISOR Raven Chandra APRN, C.N.P., D.N.P. [place] [address], [facility] [place] [address] * CBC with Differential, Blood (09/06/2023 8:57 AM HOME SUPERVISOR) [facility] Hemoglobin 15.1 13.2 - 16.6 g/dL 09/06/2023 9:34 AM HOME SUPERVISOR DTL Hematocrit 43.7 38.3 - 48.6 % 09/06/2023 9:34 AM HOME SUPERVISOR DTL Erythrocytes 5.13 4.35 - 5.65 x10(12)/L 09/06/2023 9:34 AM HOME SUPERVISOR DTL MCV 85.2 78.2 - 97.9 fL 09/06/2023 9:34 AM HOME SUPERVISOR DTL RBC Distrib Width 12.5 11.8 - 14.5 % 09/06/2023 9:34 AM HOME SUPERVISOR DTL Platelet Count 257 135 - 317 x10(9)/L 09/06/2023 9:34 AM HOME SUPERVISOR DTL Leukocytes 5.8 3.4 - 9.6 x10(9)/L 09/06/2023 9:34 AM HOME SUPERVISOR DTL Neutrophils 3.38 1.56 - 6.45 x10(9)/L 09/06/2023 9:34 AM HOME SUPERVISOR DHPM Lymphocytes 1.50 0.95 - 3.07 x10(9)/L 09/06/2023 9:34 AM HOME SUPERVISOR DTL Monocytes 0.61 0.26 - 0.81 x10(9)/L 09/06/2023 9:34 AM HOME SUPERVISOR DTL Eosinophils 0.26 0.03 - 0.48 x10(9)/L 09/06/2023 9:34 AM HOME SUPERVISOR DTL Basophils 0.05 0.01 - 0.08 x10(9)/L 09/06/2023 9:34 AM HOME SUPERVISOR DTL Blood (Blood, Venous) 09/06/2023 8:57 AM HOME SUPERVISOR 09/06/2023 9:14 AM HOME SUPERVISOR Raven Chandra APRN, C.N.P., D.N.P. LA B BLOOD ADD-ON [facility] [address] [place] [address], [facility] DTL [facility] [address] [place] [address] [facility] [address] [place] [address] * Basic Metabolic Panel (09/06/2023 8:57 AM HOME SUPERVISOR) Pathologist [facility] Potassium, S 4.7 3.6 - 5.2 mmol/L 09/06/2023 9:59 AM HOME SUPERVISOR DTL Sodium, S 137 135 - 145 mmol/L 09/06/2023 9:59 AM HOME SUPERVISOR DTL Chloride, S 102 98 - 107 mmol/L 09/06/2023 9:59 AM HOME SUPERVISOR DTL Bicarbonate, S 26 22 - 29 mmol/L 09/06/2023 9:59 AM HOME SUPERVISOR DTL Anion Gap 9 7 - 15 09/06/2023 9:59 AM HOME SUPERVISOR DTL BUN (Blood Urea Nitrogen), S 15 8 - 24 mg/dL 09/06/2023 9:59 AM HOME SUPERVISOR DTL Creatinine 1.08 0.74 - 1.35 mg/dL 09/06/2023 9:59 AM HOME SUPERVISOR DTL Estimated GFR (eGFR) 81 >=60 mL/min/BSA 09/06/2023 9:59 AM HOME SUPERVISOR DTL Comment: Estimated GFR calculated using the 2020 CKD_EPI creatinine equation. Calcium, Total, S 9.8 8.6 - 10.0 mg/dL 09/06/2023 9:59 AM HOME SUPERVISOR DTL Glucose, S 112 70 - 140 mg/dL 09/06/2023 9:59 AM HOME SUPERVISOR DTL Blood (Blood, Venous) 09/06/2023 8:57 AM HOME SUPERVISOR 09/06/2023 9:28 AM HOME SUPERVISOR Raven Chandra APRN, C.N.P., D.N.P. LA B BLOOD ADD-ON Performing Organization Address [facility]/ZIP Co de Phone Number [facility] [address] [place] [address], [facility] 200 [place] [address] * ECG 12 Lead (09/06/2023 8:20 AM HOME SUPERVISOR) Ventricular Rate ECG/Min 59 BPM MUSE WA Interval 166 ms MUSE QRSD Interval 92 ms MUSE QT Interval 420 ms MUSE QTC Interval 415 ms MUSE P [place] 62 degrees MUSE R [place] 49 degrees MUSE T Wave [place] 62 degrees MUSE 09/06/2023 8:20 AM HOME SUPERVISOR 09/06/2023 8:28 AM HOME SUPERVISOR Impressions MUSE - 09/06/2023 8:28 AM HOME SUPERVISOR Sinus bradycardia Otherwise normal ECG No previous ECGs available Reviewed by HERIBERTO Marc Narrative Procedure Note Hema Lawrence M.D., Ph.D. - 09/06/2023 IMPRESSION: Sinus bradycardia Otherwise normal ECG No previous ECGs available Reviewed by HERIBERTO Marc Mychal Cortez APRN.N.P., D.N.P. EC G ORDERABLES MUSE NA * Home Overnight Oximetry (09/05/2023) 09/05/2023 Impressions JOSE LUIS BUSTILLOS EAP - 09/07/2023 7:27 AM HOME SUPERVISOR Overnight oximetry performed on room air. ??Baseline oxygen saturation was 91%. ??There were frequent oscillatory desaturations down to 78%. ??REUBEN:37. Impression: ??Abnormal. ??Findings are suggestive of a positional or sleep- related breathing disorder and a possible underlying gas exchange abnormality. Please note the [place] ??Sleepiness Scale of 14, indicative of excessive daytime sleepiness. Dictated by: Heri Gramajo M.D. Physician: Ramses Newman M.D. [id number] Narrative Procedure Note Ramses Newman M.D., Ph.D. - 09/07/2023 IMPRESSION: Overnight oximetry performed on room air. Baseline oxygen saturation was91%. There were frequent oscillatory desaturations down to 78%.REUBEN:37. Impression: Abnormal. Findings are suggestive of a positional orsleep-related breathing disorder and a possible underlying gas exchangeabnormality. Please note the [place] Sleepiness Scale of 14, indicativeof excessive daytime sleepiness. Dictated by: Heri Gramajo M.D. Physician: Ramses Newman M.D. [id number] Raven Chandra APRN, C.N.P., D.N.P. PF T ORDERABLES ALTON TRESSA EALala from Last 3 Months Care Teams Department Sales Manager Relationship Specialty Start Date End Date Elsewhere, Pcp PCP - General Internal Medicine 11/07/23
--- OUTSIDE RECORDS SUMMARY | 2023-11-23 09:04 | XMS_ITS | Encounter Summary ---
Author Name Unknown Organization [facility] Address [address] [place] [address] Care Team Providers Care Ecd Name Role Phone Unavailable Primary Care Provider Unavailabl e Encounter Details Date Type Department Care Team ([facility] st Contact Info) Description 09/05/2023 10:30 AM HEALTH AND SAFETY MANAGER Diagnostic Division of Pulmonary Medicine in [place], [place] [address] [place] [phone] Raven Chandra APRN, C.N.P., D.N.P. [address] [place] [address] Hypertension Essential Primary; Regurgitation Mitral; Atrial Fibrillation Unspecified (HCC); Repair Mitral Valve Status Post; Post COVID-19 Condition Social History Tobacco Use Types Packs/Day Years [...] your living situation today? I have a [facility] place to live 09/01/2023 Sex and Gender Information Value Date Recorded Sex Assigned at Male 09/01/2023 8:44 AM CDT Gender Identity Male 09/01/2023 8:44 AM CDT Sexual Orientation Straight 09/01/2023 8: 44 AM CDT documented as of this encounter Plan of Treatment Not on file documented as of this encounter Procedures Procedure Name Priority Date/Time Associated Diagnosis Comments PUL HOME OVERNIGHT OXIMETRY Routine 09/05/2023 Hypertension Essential Primary Regurgitation Mitral Atrial Fibrillation Unspecified (HCC) Repair Mitral Valve Status Post Post COVID-19 Condition documented in this encounter Results * Home Overnight Oximetry (09/05/2023) 09/05/2023 Impressions [place] TRESSA EAP - 09/07/2023 7:27 AM [facility] Overnight oximetry performed on room air. ??Baseline oxygen saturation was 91%. ??There were frequent oscillatory desaturations down to 78%. ??REUBEN:37. Impression: ??Abnormal. ??Findings are suggestive of a positional or sleep- related breathing disorder and a possible underlying gas exchange abnormality. Please note the [place] ??Sleepiness Scale of 14, indicative of excessive daytime sleepiness. Dictated by: Heri Gramajo M.D. Physician: Ramses Newman M.D. [id number] Narrative Procedure Note Ramses Newman M.D., Ph.D. - 09/07/2023 IMPRESSION: Overnight oximetry performed on room air. Baseline oxygen saturation was91%. There were frequent oscillatory desaturations down to 78%.REUBEN:37. Impression: Abnormal. Findings are suggestive of a positional orsleep-related breathing disorder and a possible underlying gas exchangeabnormality. Please note the [place] Sleepiness Scale of 14, indicativeof excessive daytime sleepiness. Dictated by: Heri Gramajo M.D. Physician: Ramses Newman M.D. [id number] Raven Chandra APRN, C.N.P., D.N.P. T ORDERABLES [facility] EAP documented in this encounter Visit Diagnoses Diagnosis Hypertension Essential Primary Regurgitation Mitral Atrial Fibrillation Unspecified (HCC) Repair Mitral Valve Status Post Post COVID-19 Condition documented in this encounter
--- OUTSIDE RECORDS SUMMARY | 2023-11-23 09:04 | XMS_ITS | Encounter Summary ---
Author Name Unknown Organization [facility] Address [address] [place] [address] Care Team Providers Care Parts Salvager Name Role Phone Elsewhere, Pcp Primary Care Provider Unavailabl e Reason for Visit * Reason Onset Date Comments Pre-visit Intake 11/07/2023 Encounter Details Date Type Department Care Team (Latest Contact Info) Description 11/07/2023 1:45 PM WICK TENDER Clinical Communication Virtual Review in [place], [place] [address] [place] [address] Pre-visit Intake Social History Tobacco Use Types Packs/Day Years [...] your living situation today? I have a [facility] place to live 09/01/2023 Sex and Gender Information Value Date Recorded Sex Assigned at Male 09/01/2023 8:44 AM CDT Gender Identity Male 09/01/2023 8:44 AM CDT Sexual Orientation Straight 09/01/2023 8: 44 AM CDT documented as of this encounter Plan of Treatment Not on file documented as of this encounter Visit Diagnoses Not on filedocumented in this encounter Additional Health Concerns Assessment Noted Time PHQ-9 Depression Total Score: 8 11/07/19 24 8:10 AM WICK TENDER documented as of this encounter Care Teams Parts Salvager Relationship Specialty Start Date End Date Elsewhere, Pcp PCP - General Internal Medicine 11/07/23 documented as of this encounter
--- OUTSIDE RECORDS SUMMARY | 2023-11-23 09:04 | XMS_ITS | Encounter Summary ---
Author Name Unknown Organization [facility] Address [address] [place] [address] Care Team Providers Care Marine Cargo Inspector Name Role Phone Elsewhere, Pcp Primary Care Provider Unavailabl e Reason for Referral * MRI/CAT/PET Scan (Routine) - Authorized Specialty Diagnoses / Procedures Referred By Contac t Referred To Contact Radiology Diagnoses Transient Ischemic Attack Procedures MR Neck Angiogram without and with IV Contrast Winnie Castillo M.D. [address] [place] [phone] [facility] Referral ID Status Reason Start Date Expiration Date V isits Requested Visits Authorized [id number] Authorized 11/08/2023 11/07/2024 1 1 NG SECRETARY * MRI/CAT/PET Scan (Routine) - Authorized Specialty Diagnoses / Procedures Referred By Contac t Referred To Contact Radiology Diagnoses Transient Ischemic Attack Procedures MR Brain Angiogram without IV Contrast Winnie Castillo M.D. 200 [place] [address] [facility] Referral ID Status Reason Start Date Expiration Date V isits Requested Visits Authorized [id number] Authorized 11/08/2023 11/07/2024 1 1 NG SECRETARY * MRI/CAT/PET Scan (Routine) - Authorized Specialty Diagnoses / Procedures Referred By Contac t Referred To Contact Radiology Diagnoses Headache Chronic Procedures MR Brain without and with IV Contrast Winnie Castillo M.D. [address] [place] [address] [facility] Referral ID Status Reason Start Date Expiration Date V isits Requested Visits Authorized [id number] Authorized 11/08/2023 11/07/2024 1 1 NG SECRETARY Reason for Visit * Outpatient (Routine) - Closed Specialty Diagnoses / Procedures Referred By Jj aguilar Referred To Contact Neurology Diagnoses Persistent Migraine Aura Without Cerebral Infarction Not Intractable Without Status Migrainosus Suraj Pelaez M.D. [address] [place] [address] [facility] Referral ID Status Reason Start Date Expiration Date Visits Re quested Visits Authorized [id number] Closed 09/06/2023 09/05/2024 1 1 Encounter Details Date Type Department Care Team (Latest Contact Info) Description 11/08/2023 11:00 AM RACING SECRETARY Comprehensive Visit Department of Neurology in [place], [place] [address] [place] [address] Winnie Castillo M.D. [address] [place] [phone] Headache Chronic (Primary Dx); Persistent Migraine Aura Without Cerebral Infarction Not Intractable Without Status Migrainosus; Transient Ischemic Attack Social History Tobacco Use Types Packs/Day Years [...] your living situation today? I have a [facility] place to live 09/01/2023 Sex and Gender Information Value Date Recorded Sex Assigned at Male 09/01/2023 8:44 AM CDT Gender Identity Male 09/01/2023 8:44 AM CDT Sexual Orientation Straight 09/01/2023 8: 44 AM CDT documented as of this encounter Last Filed Vital Signs Vital Sign Reading Time Taken Comments Blood Pressure 118/72 11/08/2023 11:08 AM RACING SECRETARY Pulse 52 11/08/2023 11:08 AM RACING SECRETARY Temperature - - Respiratory Rate - - Oxygen Saturation - - Inhaled Oxygen Concentration - - Weight 86.9 kg (191 lb 9.3 oz) 11/08/2023 11:08 AM RACING SECRETARY Height 182 cm (5' 11.65) 11/08/2023 11:08 AM CS T Body Mass Index 26.23 11/08/2023 11:08 AM RACING SECRETARY documented in this encounter Consult Notes * Winnie Castillo M.D. - 11/08/2023 11:00 AM CST SUBJECTIVE CHIEF COMPLAINT / REASON FOR VISIT Akash Del Castillo presents today for evaluation of headaches. Referred by Suraj Pelaez M.D. HISTORY OF PRESENT ILLNESS Akash Del Castlilo is a very pleasant 57 y.o. year old male with a past medical history of bilateral mitral valve prolapse with severe mitral regurgitation status post repair, status post COVID myopericarditis, status post MAZE and left atrial appendage ligation. In August there was concern for endothelial dysfunction with abnormal arterial reactivity on EndoPAT for which he was prescribed L-arginine. The patient was seen last month by Cardiology for retrosternal chest tightness and shortness of breath. He has been referred to [facility] for migraine headaches. He has had headaches since his 30's, with increased frequency in his 40's. His current type of headache started on 07/04/2021. He recalls right hemianopsia and tingling on his right face and arm. He had an eye exam given the concern for his vision and reported that this was normal. Since that initialevent, he has gone on to have these aura episodes regularly, typically followed by more moderate to severe migraine headaches. The visual symptom lasts about 30 minutes. He does not have tingling with each migraine. These are followed by headache rated 3- 6/10 on the right side headache throbbing pain with migrainous features. It is clear that his severe migraines and daily headaches preceded his COVID in 10/2021 and OK in 12/14/2021. He did have a headache with his OK, but not necessarily his typical type of headache. He also got aheadache (5/10 or less) with his stress test--did the test at 9 AM, he had a severe migraine with aura later that day. Statin and L arginine may have helped headaches and overall have made him feel better. Current headache frequency and description: Some headache daily (multiple times per day for 1-3 hours) the past 3-5 years, rated 3-6/10, with more severe stabbing jabbing pain headaches at the vertex (not in quite a while). Pain gets above a7/10 about once per week, lasting all day. He gets visual aura about 3 times/month, associated withtingling about every couple of months. Face can be flushed with common. Typical headaches are unilateral frontal throbbing with photophobia, phonophobia, vertigo, and worsening with exertion into concentration. Sometimes has tenderness over his right eyebrow. He can have nausea with heart symptoms and possibly with headaches. Most recent severe headache was 1/2. Stress can trigger headaches Tinnitus bilaterally but no whooshing. Headaches not worse if standing or lying down No aura for on month Diagnostic testing: No imaging of brain Current and past abortives: Current: Acetaminophen (rarely ibuprofen)-tries not to take, but needing more frequently over time--estimates 2 days per week. No other pain medicines. Uses aspirin once daily in the AM since 07/04/2021 Melatonin 10 mg Past: None Triptans are considered contraindicated Virgilio mcpherson stomach Previously took 2 Benadryl to sleep but had RBD and hallucinations on this Current and past preventatives: Current: Metoprolol 25 mg BID started Dec 2021 L-arginine and statin for heart--Started August at first he had frequent severe migraines with this but then they calmed down for a month and now feels overall much better on these drugs Past: None PAST MEDICAL/SURGICAL HISTORY ST-elevation OK Atrial fibrillation Heart failure Hypertension Irritable bowel syndrome Status post COVID myopericarditis Sleep apnea diagnosed July 2023--on CPAP regularly Asthma Mitral valve repair March 2022 Question of early glaucoma raised by one chute builder, but No history of kidney stones to his knowledge SOCIAL HISTORY Sleeps well, using CPAP (past 2 months) for JOO. 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 Estimates 8 hours of sleep nightly. Exercises regularly, both cardiac (starting after August 2023 appointment, after failing stress test) and strength training. Caffeine-2 cups of coffee daily, around 7-8 AM. Headaches tend to be worse in evening--do not wake him from sleep. FAMILY HISTORY No known family history of headaches REVIEW OF SYSTEMS The patient's history was reviewed including allergies, current medications, review of systems, family history, medical and surgical history, social history, and problem list. CURRENT MEDICATIONS Current Outpatient Medications: amoxicillin (AMOXIL) 500 mg capsule, Take 2,000 mg by mouth. Prior to dental appointments, Disp: , Rfl: arginine (L-ARGININE) 1,000 mg per tablet, Take 1 tablet (1,000 mg total) by mouth 3 (three) times a day. (Patient taking differently: Take 1,000 mg by mouth 3 (three) times a day. Twice daily), Disp: 270 tablet, Rfl: [address] tablet, Take 81 mg by mouth daily., Disp: , Rfl: atorvastatin (LIPITOR) 40 mg tablet, TAKE 1 TABLET(40 MG) BY MOUTH DAILY, Disp: 90 tablet, Rfl: 3 LORazepam (ATIVAN) 0.5 mg tablet, Take 1 tablet by mouth at bedtime as needed for anxiety., Disp: ,Rfl: melatonin 10 mg tablet, Take 10 mg by mouth at bedtime., Disp: , Rfl: metoprolol tartrate (LOPRESSOR) 25 mg tablet, Take 1 tablet (25 mg total) by mouth 2 (two) times a day., Disp: 180 tablet, Rfl: 3 MULTIVITAMIN ORAL, Take by mouth daily., Disp: , Rfl: sildenafiL (VIAGRA) 50 mg tablet, Take 50 mg by mouth as needed., Disp: , Rfl: ALLERGIES Allergies Allergen Reactions Mold Other (see comments) congestion Penicillins Rash At age 6. OBJECTIVE VITALS & BMI Vitals: 11/08/23 1108 BP: 118/72 Patient Position: Sitting Pulse: (!) 52 Height: 182 cm Weight: 86.9 kg NEUROLOGICAL EXAMINATION MENTAL STATUS: Alert, oriented, and answering questions appropriately. Able to provide excellent historical detail. SPEECH: Normal speech and language function. CRANIAL NERVE: Visual read are full. Fundi normal without disc edema noted. Pupils react equally to light. Extraocular movements are full. Facial sensation intact within V1-V3. Facial movement intact, symmetric. Hearing intact to conversation. Nystagmus is not present. Palate elevates symmetrically. Shoulder shrug symmetric. Tongue midline. MOTOR EXAM: No pronator drift. Strength is normal and symmetric proximally and distally in arms andlegs. Good rapid alternating and fine finger movements. No asterixis, tremor or myoclonus. Normal tone. No atrophy. DEEP TENDON REFLEX: Normal reflexes within all 4 limbs. Toes are plantar to stimulation. SENSORY: Normal sensation. GAIT AND COORDINATION: Gait, station, coordination, AMRs are normal for age. Romberg test is negative. EYES: Sclera anicteric. HEAD/NECK: neck is supple. Bilateral MARIA G tenderness and right SON. EXTREMITIES: No edema noted. ASSESSMENT/PLAN 1. Chronic migraine, side locked to the right, in the absence of medication overuse 2. History of coronary artery disease/ myocardial infarction, triptans contraindicated 3. Bilateral mitral valve prolapse with severe mitral regurgitation status post repair 4. Status post COVID myopericarditis 5. JOO, on CPAP (for last couple of months) Given that the patient's headaches are side locked to the right and he has not had any imaging of the brain, I would like to get an MRI of the brain with gadolinium and an MRA of the head and neck. If this is unremarkable, I would recommend treatment as chronic migraine. I was very supportive of treatment of his obstructive sleep apnea and his recent efforts at cardiac rehabilitation as both of these have the potential to improve the frequency and severity of his headaches. We discussed a myriad of abortive and preventative options and their associated side effects. For abortive therapy, the patient would like to continue with Tylenol as needed and could try Compazine 10 mg as a rescue for severe headaches or headaches with nausea. Another option for more severeheadaches would be lasmiditan 100 mg which could be used at the onset, up to 2 days per week. All pain medicine should be limited to 2 days per week or 9 days per month to avoid exacerbating his heada ches. For preventative therapy, he would like to continue L-arginine (high doses cause diarrhea) and the statin, and would like to discuss with Cardiology about the possibility of a 3 month trial of verapamil 80 mg daily increasing by 80 mg each week to 80 mg times daily. If this is helpful, verapamil could be transitioned to a twice daily long-acting formulation. If this is ineffective or poorly tolerated (or if Cardiology is not comfortable with this), he would be interested in trying topiramate 12.5 mg nightly increasing by 12.5 mg each week to a target of 100 mg nightly for a 3 month trial. If this is ineffective or poorly tolerated, he would like to try amitriptyline 10 mg nightly increasingby 10 mg each week to a target of 50 mg nightly for a 3 month trial. If this is ineffective or poorly tolerated and if he is continuing to have daily headaches, he would be a candidate for Botox injections. We did not discuss the Cefaly device today but this would be an additional non medicine strategy that can be tried in the future. For flares of pain, he might also benefit from bilateral lesser occipital/greater occipital and right supraorbital nerve blocks. I will follow up on testing and contact the patient with any concerning findings. He will continue to follow with his local providers for prescriptions was a pleasure visiting with him today. PATIENT EDUCATION Ready to learn, no apparent learning barriers were identified; learning preferences include listening. Explained diagnosis and treatment plan; patient expressed understanding of the content. Total time spent with the patient was 75 minutes, with greater than 50% of that time spent counseling and coordination of care. PATIENT REPORTED HISTORY VIA QUESTIONNAIRE: Mr. Del Castillo is a 57 y.o.right handed male who was evaluated today for headaches. His headaches began to occur about 2 year(s) ago.In describing the headaches today, he says they tend to start unilaterally and tend to start in the frontal region. The quality of the head pain is throbbing and pulsing. He estimates the maximal intensity of his headaches to be 5 out of 10 on a scale in which 0 out of ten signifies no pain and 10 out of 10 signifies the worst pain imaginable. The headaches are sometimes associated with sensitivity to light and sensitivity to sound and no cranialautonomic symptoms. He experiences vertigo. Once established, his headaches are generally worsened by exertion, like going up or down stairs or doing housework and routine mental activity (e.g. concentrating, reading). Untreated or ineffectively treated headaches may persist for 2 hour(s) and the most severe headaches may last up to 4 hour(s). Mr. Del Castillo experiences a visual disturbance prior to or in the early phase of his headaches that last 5 to 60 minutes. Patient reports that he experiences mixing up words or having difficulty expressing thoughts at thestart of headaches and it lasts for 5 to 60 minutes.At times during his headaches and on the same side as the head pain he experiences none of these. The patient notes that flickering or glaring lights tends to trigger his headaches. The patient rates the severity and disability of average headaches as 3 out of 3 in severity. Over the past 4 weeks he reports having a headache for 8 days out of 28. CURRENT HEADACHE TREATMENTS: The patient has used the following headache acute treatments in the last 4 weeks: acetaminophen (Tylenol) at a dose of 500 to 4000 mg 1 to 3 days per month for headaches only. The MIDAS score today which reflects the past three months was 9. Over the past three months his average subjective pain severity scale was (0 - 10) 5. NG SECRETARY documented in this encounter Plan of Treatment Scheduled Orders Name Type Priority Associated Diagnoses Orde r Schedule MR Brain without and with IV Contrast Imaging RAD - Routine (most inpatients and all outpatients) Headache Chronic Expected: 11/09/2023 (Approximate), Expires: 02/06/2025 MR Brain Angiogram without IV Contrast Imaging RAD - Routine (most inpatients and all outpatients) Transient Ischemic Attack Expected: 11/09/2023 (Approximate), Expires: 02/06/2025 MR Neck Angiogram without and with IV Contrast Imaging RAD - Routine (most inpatients and all outpatients) Transient Ischemic Attack Expected: 11/09/2023 (Approximate), Expires: 02/06/2025 documented as of this encounter Visit Diagnoses Diagnosis Headache Chronic- Primary Persistent Migraine Aura Without Cerebral Infarction Not Intractable Without Status Migrainosus Transient Ischemic Attack documented in this encounter Additional Health Concerns Assessment Noted Time PHQ-9 Depression Total Score: 8 11/07/19 24 8:10 AM RACING SECRETARY documented as of this encounter Care Teams Marine Cargo Inspector Relationship Specialty Start Date End Date Elsewhere, Pcp PCP - General Internal Medicine 11/07/23 documented as of this encounter
--- OUTSIDE RECORDS SUMMARY | 2023-11-23 09:04 | XMS_ITS | Encounter Summary ---
Author Name Unknown Organization [facility] Address [address] [place] [address] Care Team Providers Care Appellate Law Clerk Name Role Phone Unavailable Primary Care Provider Unavailabl e Reason for Visit * Reason Comments Med Refill Encounter Details Date Type Department Care Team (Late st Contact Info) Description 10/04/2023 Refill Department of Cardiovascular Medicine in [place], [place] [address] [place] [address] Yesica Mccollum RAugustNAugust Med Refill Social History Tobacco Use Types [...] your living situation today? I have a [facility] place to live 09/01/2023 Sex [...]
--- OUTSIDE RECORDS SUMMARY | 2023-11-23 09:04 | XMS_ITS | Encounter Summary ---
Author Name Unknown Organization [facility] Address [address] [place] [address] Care Team Providers Care Numerical Control Nesting Operator Name Role Phone Unavailable Primary Care Provider Unavailabl e Reason for Referral * Outpatient (Routine) - Closed Specialty Diagnoses / Procedures Referred By Celiaac jeff Referred To Contact Diagnoses Mitral Valve Prolapse Procedures CV Suraj Rangel M.D. [address] [place] [address] [facility] Referral ID Status Reason Start Date Expiration Date Visits Re quested Visits Authorized [id number] Closed 09/06/2023 09/05/2024 1 1 TAIN HELPER Reason for Visit * Outpatient (Routine) - Closed Specialty Diagnoses / Procedures Referred By Jj aguilar Referred To Contact Diagnoses Mitral Valve Prolapse Procedures CV Suraj Rangel M.D. [address] [place] [address] [facility] Referral ID Status Reason Start Date Expiration Date Visits Re quested Visits Authorized [id number] Closed 09/06/2023 09/05/2024 1 1 Encounter Details Date Type Department Care Team (Latest Contact Info) Description 09/08/2023 10:37 AM FOUNTAIN HELPER - 09/08/2023 11:59 PM FOUNTAIN HELPER Hospital Encounter Department of Vascular Medicine in [place], [place] [address] [place] [phone] Suraj Pelaez M.D. [address] [place] [phone] Mitral Valve Prolapse Discharge Disposition: Home or Self Care Social [...] your living situation today? I have a [facility] place to live 09/01/2023 Sex and [...] Comments CV ENDOPAT Routine 09/08/2023 2:51 PM FOUNTAIN HELPER Mitral Valve Prolapse documented in this encounter Results * CV EndoPAT (09/08/2023 2:51 PM FOUNTAIN HELPER) Anatomical Region Laterality Modality Other 09/08/2023 2:30 PM FOUNTAIN HELPER Narrative 09/08/2023 2:30 PM FOUNTAIN HELPER Bilateral: Endo-PAT ?Endothelial Function ? Probe digit: [...] Suraj Pelaez M.D. CV VASCULAR PROCEDUR ES documented in this encounter Visit Diagnoses Diagnosis Mitral Valve Prolapse documented in this encounter
--- OUTSIDE RECORDS SUMMARY | 2023-11-23 09:04 | XMS_ITS | Encounter Summary ---
Author Name Unknown Organization [facility] Address [address] [place] [address] Care Team Providers Care Home Care Manager Rn Name Role Phone Unavailable Primary Care Provider Unavailabl e Reason for Referral * Outpatient (Routine) - Closed Specialty Diagnoses / Procedures Referred By Celiaac t Referred To Contact Diagnoses Mitral Valve Prolapse Procedures Cardiopulmonary (VO2) Exercise Test Suraj Pelaez M.D. [address] [place] [address] [facility] Referral ID Status Reason Start Date Expiration Date Visits Re quested Visits Authorized [id number] Closed 09/06/2023 09/05/2024 1 1 STRIAL SAFETY AND HEALTH MANAGER Reason for Visit * Outpatient (Routine) - Closed Specialty Diagnoses / Procedures Referred By Jj aguilar Referred To Contact Diagnoses Mitral Valve Prolapse Procedures Cardiopulmonary (VO2) Exercise Test Suraj Pelaez M.D. [address] [place] [address] [facility] Referral ID Status Reason Start Date Expiration Date Visits Re quested Visits Authorized [id number] Closed 09/06/2023 09/05/2024 1 1 Encounter Details Date Type Department Care Team (Latest Contact Info) Description 09/08/2023 9:07 AM INDUSTRIAL SAFETY AND HEALTH MANAGER - 09/08/2023 9:51 AM INDUSTRIAL SAFETY AND HEALTH MANAGER Hospital Encounter Department of Cardiovascular Diseases in [place], [place] [address] [place] [phone] Suraj Pelaez M.D. [address] [place] [phone] Mitral Valve Prolapse Discharge Disposition: Home or [...] your living situation today? I have a [facility] place to live 09/01/2023 Sex and Gender [...] Procedure Name Priority Date/Time Associated Diagnosis Comments CARDIOPULMONARY (VO2) EXERCISE TEST Routine 09/08/2023 10:04 AM INDUSTRIAL SAFETY AND HEALTH MANAGER Mitral Valve Prolapse documented in this encounter Results * CARDIOPULMONARY (VO2) EXERCISE TEST (09/08/2023 10:04 AM INDUSTRIAL SAFETY AND HEALTH MANAGER) 09/08/2023 9:07 AM INDUSTRIAL SAFETY AND HEALTH MANAGER Narrative CV CLAUDETTE - 09/08/2023 11:20 AM INDUSTRIAL SAFETY AND HEALTH MANAGER See PDF For Result Procedure Note Danis Johnson M.D., Ph.D. - 09/08/2023 See PDF For Result Suraj Pelaez M.D. CV STRESS PROCEDURES CV CLAUDETTE NA documented in this encounter Visit Diagnoses Diagnosis Mitral Valve Prolapse documented in this encounter
--- OUTSIDE RECORDS SUMMARY | 2023-11-23 09:04 | XMS_ITS | Encounter Summary ---
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 [address] [place] [address] [facility] Referral ID Status Reason Start Date Expiration Date V isits Requested Visits Authorized [id number] Authorized 10/03/2023 10/02/2026 1 1 [employer] Reason for Visit * Appointment Request (Routine) - Closed Specialty Diagnoses / Procedures Referred By Jj aguilar Referred To Contact Cardiovascular Disease Referral ID Status Reason Start Date Expiration Date Visits Re quested Visits Authorized [id number] Closed 09/06/2023 09/05/2024 1 1 Encounter Details Date Type Department Care Team (Latest Contact Info) Description 10/03/2023 11:15 AM [employer] Office Visit Department of Cardiovascular Medicine in [place], [place] [address] [place] [address] Reilly Escobar M.D. [address] [place] [phone] Endothelial Dysfunction Coronary Artery (HCC) (Primary Dx) Social History Tobacco Use Types Packs/Day Years [...] your living situation today? I have a [facility] place to live 09/01/2023 Sex and Gender Information Value Date Recorded Sex Assigned at Male 09/01/2023 8:44 AM CDT Gender Identity Male 09/01/2023 8:44 AM CDT Sexual Orientation Straight 09/01/2023 8: 44 AM CDT documented as of this encounter Last Filed Vital Signs Vital Sign Reading Time Taken Comments Blood Pressure 126/67 10/03/2023 10:50 AM [employer] Pulse 50 10/03/2023 10:50 AM [employer] Temperature - - Respiratory Rate - - Oxygen Saturation - - Inhaled Oxygen Concentration - - Weight 86 kg (189 lb 9.5 oz) 10/03/2023 10:50 AM [employer] Height 181.9 cm (5' 11.61) 10/03/2023 10:50 AM [employer] Body Mass Index 25.99 10/03/2023 10:50 AM [employer] documented in this encounter Progress Notes * El-AmReilly M.D. - 10/03/2023 11:15 AM CST SUBJECTIVE Mr. Akash Del Castillo is a pleasant 57 y.o. male who presents to the [facility] for evaluation of chest [...] of migraine with aura and Raynaud's phenomena. We evaluated him on 09/06/2023, at that time there was concern for endothelial dysfunction and we recommended endopat which showed abnormal arterial reactivity and therefore we prescribed him L-arginine. REVIEW OF SYSTEMS All other systems reviewed and are negative. OBJECTIVE There were no vitals filed for this visit. There is no height or weight on file to calculate BMI. PHYSICAL EXAMINATION Constitutional Appearance: He is not ill-appearing. Cardiovascular Rate and Rhythm: Normal rate and regular rhythm. Heart sounds: No murmur. Pulmonary Effort: Pulmonary effort is normal. Breath sounds: No wheezing. Abdominal General: Abdomen is flat. Bowel sounds are normal. Tenderness: There is no abdominal tenderness. Musculoskeletal Right lower leg: No edema. Left lower leg: No edema. Neurological General: No focal deficit present. Mental Status: He is alert and oriented to person, place, and time. Skin General: Skin is warm and dry. ASSESSMENT / PLAN #1 s/p mitral valve repair #2 chest pain #3 shortness of breath Mr. Akash Del Castillo is a pleasant 57 y.o. male who presents to the [facility] for evaluation of chest [...] in the setting of his migraine and Raynaud. Hs-CRP was unremarkable. However his endopat were consistent with endothelial dysfunction. Recommendations: -uptitrate L-arginine to 2 g BID -will start on atorvastatin 40 mg daily. If persistent symptoms we will start on CCB. Akash Del Castillo was seen by and staffed with Dr. Pelaez [employer] documented in this encounter Plan of Treatment Scheduled Referrals Name Type Priority Associated Diagnoses Order Schedule Cardiovascular Disease office visit (clinic) General Outpatient Referral Routine Expected: 04/03/2024 (Approximate), Expires: 01/01/2025 documented as of this encounter Visit Diagnoses Diagnosis Endothelial Dysfunction Coronary Artery (HCC)- Primary documented in this encounter
--- OUTSIDE RECORDS SUMMARY | 2023-11-23 09:05 | XMS_ITS | Encounter Summary ---
Author Name Unknown Organization [facility] Address [address] [place] [address] Care Team Providers Care Baker Pie Name Role Phone Unavailable Primary Care Provider Unavailabl e Reason for Referral * Outpatient (Routine) - Authorized Specialty Diagnoses / Procedures Referred By Jj t Referred To Contact Diagnoses Hypertension Essential Primary Regurgitation Mitral Atrial Fibrillation Unspecified (HCC) Repair Mitral Valve Status Post Post COVID-19 Condition Procedures ECG Heart rhythm monitor (Holter) Raven Chandra APRN, C.N.P., D.N.P. [address] [place] [address] [facility] Referral ID Status Reason Start Date Expiration Date V isits Requested Visits Authorized [id number] Authorized 07/07/2023 07/06/2024 1 1 * Outpatient (Routine) - Closed Specialty Diagnoses / Procedures Referred By Contac t Referred To Contact Diagnoses Hypertension Essential Primary Regurgitation Mitral Atrial Fibrillation Unspecified (HCC) Repair Mitral Valve Status Post Post COVID-19 Condition Procedures ECG 12 Lead Raven Chandra APRN, C.N.P., D.N.P. [address] [place] [phone] [facility] Referral ID Status Reason Start Date Expiration Date Visits Re quested Visits Authorized [id number] Closed 07/07/2023 07/06/2024 1 1 Reason for Visit * Reason Onset Date Comments Triage 06/24/2023 Encounter Details Date Type Department Care Team (Latest Contact Info) Description 06/24/2023 Clinical Communication Department of Cardiovascular Medicine in [place], [place] [address] [place] [address] Maryjane Gale R.N. [address] [place] [address] Triage Social History Tobacco Use Types Packs/Day Years Used Date Smoking Tobacco: Never Tobacco Cessation:Counseling Given: Not Answered Alcohol Use Standard Drinks/Week Comments Not Currently 0 (1 standard drink = 0.6 oz pur e alcohol) Nutrition Answer Date Recorded Nutrition: EVOO Fat Source Unknown 03/11 Nutrition: Servings of Fruits/Vegetables per Day Not on file 03/11/2022 Dental Answer Date Recorded Dental: Regular Dentist Unknown 03/11/20 Sex and Gender Information Value Date Recorded Sex Assigned at Male 09/01/2023 8:44 AM CDT Gender Identity Male 09/01/2023 8:44 AM CDT Sexual Orientation Straight 09/01/2023 8: 44 AM CDT documented as of this encounter Miscellaneous Notes * Addendum Note - Alberto Vargas R.N. - 07/07/2023 12:47 PM CDTAddended by: ALBERTO VARGAS on: 07/07/2023 12:47 PM Modules accepted: Orders * Telephone Encounter - Raven Chandra APRN, C.NMilagros, D.N.P. - 07/07/2023 11:52 AM CDT TRIAGE NOTE FOR GENERAL CARDIOLOGY The following information has been collected from the medical record. It is not a comprehensive summary, and has not been verified with the patient. The General Cardiology Triage Team does not establish a relationship with the patient, nor manage the patient's care outside of an initial review for the purposes of an appointment triage. For any questions please contact the patient's primary care provider. 57 y.o. male from [address] [facility] [phone] Self referred for dyspnea, fatigue Patient with a complex cardiac history: he is s/p mitral valve repair for severe mitral valve regurgitation in the setting of post COVID myocarditis/pericarditis. PAF status post DCCV. He has been under the care most recently of Dr. Sosa at the [facility]. He has been originally reviewed and triaged by the Valve Clinic but has been with recent cardiac MR demonstrating mild MR following surgical repair. Cardiac MR also demonstrates intact LV function and no evidence of ongoing myocarditis. Pre- surgical angiogram on 12/14/2021 demonstrated normal coronary arteries. Currently patient is experiencing palpitations, shortness of breath with exertion, and extreme fatigue. Cardiac MR 06/21/2023 in [facility] Comparison is made to CMR study from [...] measurement). Normal thoracic aorta caliber (35 mm). Cardiology note 04/28/2023 in [facility] 04/28/2023 Patient returns for follow-up visit after his open heart surgery in March 2022 when he had complex mitral valve repair with a 36 mm Dumont physio 2 ring. Postoperative transthoracic echocardiogram from July 2022 was reviewed demonstrating excellent surgical results with no MALACHI, and no residual mitral regurgitation. There is mild to moderate aortic regurgitation. Aortic root and ascending aortahad normal size and preserved right ventricular function without pericardial fusion. Patient also has seen Dr. Tesfaye postoperatively with some concerns about some pop sounds and some unevenness of the sternal poststernotomy. He has completed the course of colchicine. He presents today with a multitude of complaints including occasional palpitations sometimes while sitting briefly for few seconds with his Fitbit alerting heart rate between 120-140 beats a minute. He also has gone back to the gym and initially when starting the exercise routine he feels short of breath but then as he gets his heart rate up he feels much better and is able to continue without problems. The same has been noted with also going up the steps. He continues to do the ADLs independently pushing the lawn more without problems and doing activities without PND orthopnea or near syncope. He also reports some occasional episodes of chest pain which are nonexertional and not positional. He also reports some occasional episodes of kaleidoscope eyes with blurred vision which is followed by headache. That did not occur before his mitral valve surgery. He has seen an willow machine operator which evaluation revealed no issues with his eyes. We do not have any report of his CBC following mitral valve surgery in which time he was quite anemic. He mentioned that he had labs done back in December 2022. He has been on no diuretics. Cardiac MRI 12/14/2021 1. Acute myopericarditis. 2. Mild increase in LV volume, low normal LV systolic function, LVEF 56%. a) there is subepicardial to mid myocardial delayed enhancement involving the basal inferior to inferolateral wall. This is nonischemic in nature. b) there is pericardial gadolinium uptake consistent with pericardial inflammation. Trivial pericardial effusion. 3. Normal RV volume. Mild RV systolic dysfunction. RVEF 45%. 4. Myxomatous mitral valve, bileaflet prolapse, anterior greater than posterior. MR quantitated at 33 to 35% (moderate). Mitral annular disjunction, 8 mm. 5. No evidence of pulmonary embolism on MR pulmonary angiography. 6. Bilateral pulmonary infiltrate. Dr. 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 Normal left ventricular size, low normal global systolic function with an estimated EF of 50 - 55%. 2. Right ventricular cavity size is normal, global systolic RV function is normal. 3. The mitral valve is myxomatous with bileaflet prolapse and flail anterior leaflet segment (A2)with severe, posteriorly-directed jet of mitral regurgitation. 4. 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 5. Atrial septum is intact by color Doppler. 6. No evidence of thrombus present in the left atrial appendage. Echo 01/04/2022 Final Impressions: 1. Normal LV size, borderline wall thickness, estimated EF of 55 - 60%. 2. Normal RV size and systolic function. 3. Mild LA enlargement. 4. The mitral valve is myxomatous with bileaflet prolapse, moderate to severe mitral regurgitation (regurgitant volume 58 mL). 5. No pericardial effusion. Impression and Plan: 57 yo male with post-COVID myopericarditis complicated by persistent atrial fibrillation and likelyembolic NH with concurrently identified moderate (by cMRI) to severe (by JARED) mitral regurgitation now with worsening exertional dyspnea and lightheadedness. You underwent complex mitral valve repairwith dionicio cords and a 36 mm Dumont physio 2 annuloplasty ring with excellent results. Transthoracic from 07/2022 preserved biventricular function, no MALACHI and no mitral regurgitation with mild to moderate aortic regurgitation. He has remained NYHA class I with some multitude of postoperative symptoms including sternal popping and occasional chest discomfort not exertional or positional. Kaleidoscopic eyes, and brief exertional dyspnea at the beginning of exercise. He completed the treatment of myopericarditis with Colchicine. Plan: - Cardiac MRI with Gadolinium to assess residual scarring, AR severity and LV remodeling. - CBC w/ diff and iron studies - BNP - Neuro-ophthalmology given the vision symptoms. - Low threshold for Ziopatch or long AF monitoring. KAYLEE TRIAGE RECOMMENDATIONS: Gen cards, ECG, Holter, overnight pulse oximetry, labs (CBC, BMP, TSH, lipids, NT proBNP) *Will defer additional testing (VO2, TTE, etc.) to consulting provider Referral Triage: No RT, deferred by valve IMAGES/Results needed for consult: Cardiac MR images from 05/2023 * Telephone Encounter - Adeline Lee R.N. - 07/07/2023 10:17 AM CDT PLAN The following information was provided: Spoke with Mr. Del Castillo to gather additional information for triage purposes. Patient states that he had a mitral valve repair a [facility] in March 2022. He now is having palpitations,shortness of breath with exertion, and extreme fatigue. 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 I will nap for 2-3 hours and then be good for a few hours before being wiped out again. Mr. Del Castillo had a cardiac MRI on 06/21/23 and was told he had 3 leaky valves per his PCP. His PCPwould like him to follow up at [facility] and establish cardiac care here. Per review of his cardiac MRI, there is mild MR, mild AR, and trivial TR. Per review by Deann Snyder APRN, there is no concerns regarding EF or valves. Based on review, patient will be re-triaged to general cardiology as may be more appropriate for the patient at this time. Informed patient that his schedule may change due to the change in clinics. Information/Education: patient/caller able to teach back The following references were used: nursing clinical judgement * Telephone Encounter - Sheridan Neal R.N. - 07/06/2023 12:13 PM CDT Received info via teams that Mr. Del Castillo has meetings all day today. He requests call back regarding need for triage tomorrow and I am away. Dieter Snyder reviewed and it is not clear reason for appointment. If he has not received MRI results? Valve? HF? Valve repair looks good so may be appropriate for general cards? * Telephone Encounter - Ayana Summers - 07/05/2023 10:15 AM CDT Images from the original note were not included. * Telephone Encounter - Maryjane Gale R.N. - 06/24/2023 11:30 AM CDT Pre-appointment valve clinic triage/record review. The following information has been collected from the medical record. It is not a comprehensive summary and has not been verified with the patient. The Appointment Triage Team does not establish a relationship with the patient, nor manage the patient's care outside of an initial review for the purposes of an appointment triage. For any questions, please contact the patient's primary provider. REFERRAL SOURCE: Self CHIEF COMPLAINT / REASON FOR VISIT S/p mitral valve repair (elsewhere) following COVID myocarditis/pericarditis HISTORY OF PRESENT ILLNESS Marry??o Link Sosa MD, FACC, FSCCT, FSCMR (CVD) note 04/28/2023 Patient returns for follow-up visit after his open heart surgery in March 2022 when he had complex mitral valve repair with a 36 mm Dumont physio 2 ring. Postoperative transthoracic echocardiogram from July 2022 was reviewed demonstrating excellent surgical results with no MALACHI, and no residual mitral regurgitation. There is mild to moderate aortic regurgitation. Aortic root and ascending aortahad normal size and preserved right ventricular function without pericardial fusion. Patient also has seen Dr. Tesfaye postoperatively with some concerns about some pop sounds and some unevenness of the sternal poststernotomy. He has completed the course of colchicine. He presents today with a multitude of complaints including occasional palpitations sometimes while sitting briefly for few seconds with his Fitbit alerting heart rate between 120-140 beats a minute. He also has gone back to the gym and initially when starting the exercise routine he feels short of breath but then as he gets his heart rate up he feels much better and is able to continue without problems. The same has been noted with also going up the steps. He continues to do the ADLs independently pushing the lawn more without problems and doing activities without PND orthopnea or near syncope. He also reports some occasional episodes of chest pain which are nonexertional and not positional. He also reports some occasional episodes of kaleidoscope eyes with blurred vision which is followed by headache. That did not occur before his mitral valve surgery. He has seen an willow machine operator which evaluation revealed no issues with his eyes. We do not have any report of his CBC following mitral valve surgery in which time he was quite anemic. He mentioned that he had labs done back in December 2022. He has been on no diuretics. Impression and Plan: 57 yo male with post-COVID myopericarditis complicated by persistent atrial fibrillation and likelyembolic NH with concurrently identified moderate (by cMRI) to severe (by JARED) mitral regurgitation now with worsening exertional dypsnea and lightheadedness. You underwent complex mitral valve repairwith neocords and a 36 mm Dumont physio 2 annuloplasty ring with excellent results. Transthoracic from 07/2022 preserved biventricular function, no MALACHI and no mitral regurgitation with mild to moderate aortic regurgitation. He has remained NYHA class I with some multitude of postoperative symptoms including sternal popping and occasional chest discomfort not exertional or positional. Kaleidoscopic eyes, and brief exertional dyspnea at the beginning of exercise. He completed the treatment of myopericarditis with Colchicine. Plan: - Cardiac MRI with Gadolinium to assess residual scarring, AR severity and LV remodeling. - CBC w/ diff and iron studies - BNP - Neuro-ophthalmology given the vision symptoms. - Low threshold for Ziopatch or long AF monitoring. Past Medical History and Past Surgical History have been updated in EMR MEDICATIONS Aspirin, metoprolol, loratadine, multivitamin IMAGING DIAGNOSTIC REVIEW 06/21/23 Cardiac MRI Comparison is made to CMR study from [...] measurement). Normal thoracic aorta caliber (35 mm). 08/13/22 Echo Final Impressions: 1. Normal LV size, mildly increased wall thickness, normal global systolic function with an estimated EF of 60 - 65%. 2. The mitral valve is repair with an annuloplasty ring, mean gradient 2-3mmHg, and trace mitral regurgitation. Cardiac MRI 12/14/2021 1. Acute myopericarditis. 2. Mild increase in LV volume, low normal LV systolic function, LVEF 56%. a) there is subepicardial to mid myocardial delayed enhancement involving the basal inferior to inferolateral wall. This is nonischemic in nature. b) there is pericardial gadolinium uptake consistent with pericardial inflammation. Trivial pericardial effusion. 3. Normal RV volume. Mild RV systolic dysfunction. RVEF 45%. 4. Myxomatous mitral valve, bileaflet prolapse, anterior greater than posterior. MR quantitated at 33 to 35% (moderate). Mitral annular disjunction, 8 mm. 5. No evidence of pulmonary embolism on MR pulmonary angiography. 6. Bilateral pulmonary infiltrate. Dr. 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 Normal left ventricular size, low normal global systolic function with an estimated EF of 50 - 55%. 2. Right ventricular cavity size is normal, global systolic RV function is normal. 3. The mitral valve is myxomatous with bileaflet prolapse and flail anterior leaflet segment (A2)with severe, posteriorly-directed jet of mitral regurgitation. 4. Tricuspid valve is myxomatous with mild prolapse and trace tricuspid insuffiency. 5. Atrial septum is intact by color Doppler. 6. No evidence of thrombus present in the left atrial appendage. RECOMMENDATIONS TO APPOINTMENT OFFICE Regular Valve testing / Consult documented in this encounter Plan of Treatment Not on file documented as of this encounter Results * HOLTER MONITOR - IN CLINIC EMERGENCY SERVICES DIRECTOR (09/06/2023 11:49 AM FAMILY NURSE PRACTITIONER) Min Heart Rate 52 bpm INFOB IONIC [...] Duration 0 duration INFOBION IC MOME AF [place] 0 percent INFOBIONIC MOME Symptom Count 7 count INFOBI ONIC MOME 09/05/2023 8:28 AM FAMILY NURSE PRACTITIONER Narrative INFOBIONIC MOME - 09/06/2023 2:44 PM FAMILY NURSE PRACTITIONER 1. The basic rhythm was sinus. The [...] were seen singly. PVCs were seen singly. Plant Maintenance Worker: HERIBERTO Calixto/ HERIBERTO Funes Procedure Note Garrett [...] PACs were seen singly. PVCs were seensingly. Plant Maintenance Worker: HERIBERTO Calixto/ HERIBERTO Funes Mychal Cortez APRN.N.Celso, D.N.P. CV CARDIAC SERVICES PROCEDURES WEI TRAVIS * (ABNORMAL) NT-Pro B-Type Natriuretic Peptide (BNP) (09/06/2023 8:57 AM FAMILY NURSE PRACTITIONER) NT-Pro BNP 124(H) <=88 pg/mL 09/06/2023 9:59 AM FAMILY NURSE PRACTITIONER DTL Comment: NT-proBNP values less than 300 [...] failure. Blood (Blood, Venous) 09/06/2023 8:57 AM FAMILY NURSE PRACTITIONER 09/06/2023 9:28 AM FAMILY NURSE PRACTITIONER Raven Chandra APRN, C.N.P., D.N.P. LA B BLOOD ADD-ON Performing Organization Address City/[facility] [place] [address], [facility] [address] [place] [address] * Lipid Panel (09/06/2023 8:57 AM FAMILY NURSE PRACTITIONER) Triglycerides 112 mg/dL 09/06/2023 9:59 AM FAMILY NURSE PRACTITIONER DTL Comment: ----REFERENCE VALUE---- Normal: <150 mg/dL Borderline High: 150-199 mg/dL High: 200-499 mg/dL Very High: > or =500 mg/dL Cholesterol, Total 184 mg/dL 2022 9:59 AM FAMILY NURSE PRACTITIONER DTL Comment: ----REFERENCE VALUE---- Desirable: < 200 mg/dL Borderline High: 200 - 239 mg/dL High: > or = 240 mg/dL Cholesterol, LDL, Calculated 113 mg/dL 09/06/2023 9:59 AM FAMILY NURSE PRACTITIONER DTL Comment: ----REFERENCE VALUE---- Desirable: <100 mg/dL Above Desirable: 100-129 mg/dL Borderline High: 130-159 mg/dL High: 160-189 mg/dL Very High: >=190 mg/dL ----ADDITIONAL INFORMATION---- LDL cholesterol calculated using the Purvis/NIH equation. Cholesterol, HDL, S 51 >=40 mg/dL 09/06/2023 9:59 AM FAMILY NURSE PRACTITIONER DTL Cholesterol, Non-HDL, Calculated 133 mg/dL 09/06/2023 9:59 AM FAMILY NURSE PRACTITIONER DTL Comment: ----REFERENCE VALUE---- Desirable: <130 mg/dL Above Desirable: 130-159 mg/dL Borderline High: 160-189 mg/dL High: 190-219 mg/dL Very High: > or =220 mg/dL Fasting (8 HR or more) Yes 09/06/2023 9:28 AM FAMILY NURSE PRACTITIONER DTL Blood (Blood, Venous) 09/06/2023 8:57 AM FAMILY NURSE PRACTITIONER 09/06/2023 9:28 AM FAMILY NURSE PRACTITIONER Raven Chandra APRN, C.N.P., Vikas.N.PAugust FITCH BLOOD ADD-ON Performing Organization Address City/[facility]/[place]IP [place] [address], [facility] [place] [address] * Thyroid Function Jackman (09/06/2023 8:57 AM FAMILY NURSE PRACTITIONER) TSH, Sensitive 4.2 0.3 - 4.2 mIU/L 09/06/2023 9:59 AM FAMILY NURSE PRACTITIONER DTL Blood (Blood, Venous) 09/06/2023 8:57 AM FAMILY NURSE PRACTITIONER 09/06/2023 9:28 AM FAMILY NURSE PRACTITIONER Raven Chandra APRN, C.N.P., D.N.P. SUBHA B BLOOD ADD-ON [facility] [address] [place] [address], [facility] [address] [place] [address] * Basic Metabolic Panel (09/06/2023 8:57 AM FAMILY NURSE PRACTITIONER) Pathologist [facility] Potassium, S 4.7 3.6 - 5.2 mmol/L 09/06/2023 9:59 AM FAMILY NURSE PRACTITIONER DTL Sodium, S 137 135 - 145 mmol/L 09/06/2023 9:59 AM FAMILY NURSE PRACTITIONER DTL Chloride, S 102 98 - 107 mmol/L 09/06/2023 9:59 AM FAMILY NURSE PRACTITIONER DTL Bicarbonate, S 26 22 - 29 mmol/L 09/06/2023 9:59 AM FAMILY NURSE PRACTITIONER DTL Anion Gap 9 7 - 15 09/06/2023 9:59 AM FAMILY NURSE PRACTITIONER DTL BUN (Blood Urea Nitrogen), S 15 8 - 24 mg/dL 09/06/2023 9:59 AM FAMILY NURSE PRACTITIONER DTL Creatinine 1.08 0.74 - 1.35 mg/dL 09/06/2023 9:59 AM FAMILY NURSE PRACTITIONER DTL Estimated GFR (eGFR) 81 >=60 mL/min/BSA 09/06/2023 9:59 AM FAMILY NURSE PRACTITIONER DTL Comment: Estimated GFR calculated using the 2020 CKD_EPI creatinine equation. Calcium, Total, S 9.8 8.6 - 10.0 mg/dL 09/06/2023 9:59 AM FAMILY NURSE PRACTITIONER DTL Glucose, S 112 70 - 140 mg/dL 09/06/2023 9:59 AM FAMILY NURSE PRACTITIONER DTL Blood (Blood, Venous) 09/06/2023 8:57 AM FAMILY NURSE PRACTITIONER 09/06/2023 9:28 AM FAMILY NURSE PRACTITIONER Raven Chandra APRN, C.N.P., D.N.P. LA B BLOOD ADD-ON [facility] [address] [place] [address], [facility] [address] [place] [address] * CBC with Differential, Blood (09/06/2023 8:57 AM FAMILY NURSE PRACTITIONER) Pathologist [facility] Hemoglobin 15.1 13.2 - 16.6 g/dL 09/06/2023 9:34 AM FAMILY NURSE PRACTITIONER DTL Hematocrit 43.7 38.3 - 48.6 % 09/06/2023 9:34 AM FAMILY NURSE PRACTITIONER DTL Erythrocytes 5.13 4.35 - 5.65 x10(12)/L 09/06/2023 9:34 AM FAMILY NURSE PRACTITIONER DTL MCV 85.2 78.2 - 97.9 fL 09/06/2023 9:34 AM FAMILY NURSE PRACTITIONER DTL RBC Distrib Width 12.5 11.8 - 14.5 % 09/06/2023 9:34 AM FAMILY NURSE PRACTITIONER DTL Platelet Count 257 135 - 317 x10(9)/L 09/06/2023 9:34 AM FAMILY NURSE PRACTITIONER DTL Leukocytes 5.8 3.4 - 9.6 x10(9)/L 09/06/2023 9:34 AM FAMILY NURSE PRACTITIONER DTL Neutrophils 3.38 1.56 - 6.45 x10(9)/L 09/06/2023 9:34 AM FAMILY NURSE PRACTITIONER PM Lymphocytes 1.50 0.95 - 3.07 x10(9)/L 09/06/2023 9:34 AM FAMILY NURSE PRACTITIONER DTL Monocytes 0.61 0.26 - 0.81 x10(9)/L 09/06/2023 9:34 AM FAMILY NURSE PRACTITIONER DTL Eosinophils 0.26 0.03 - 0.48 x10(9)/L 09/06/2023 9:34 AM FAMILY NURSE PRACTITIONER DTL Basophils 0.05 0.01 - 0.08 x10(9)/L 09/06/2023 9:34 AM FAMILY NURSE PRACTITIONER DTL Blood (Blood, Venous) 09/06/2023 8:57 AM FAMILY NURSE PRACTITIONER 09/06/2023 9:14 AM FAMILY NURSE PRACTITIONER Raven Chandra APRN, C.N.P., D.N.P. LA Nancy BLOOD ADD-ON [facility] [address] [place] [address], [facility] DTL [facility] [address] [place] [address] [facility] [address] [place] [address] * ECG 12 Lead (09/06/2023 8:20 AM FAMILY NURSE PRACTITIONER) Ventricular Rate ECG/Min 59 BPM MUSE CO Interval 166 ms MUSE QRSD Interval 92 ms MUSE QT Interval 420 ms MUSE QTC Interval 415 ms MUSE P Brandon 62 degrees MUSE R Brandon 49 degrees MUSE T Wave Brandon 62 degrees MUSE 09/06/2023 8:20 AM FAMILY NURSE PRACTITIONER 09/06/2023 8:28 AM FAMILY NURSE PRACTITIONER Impressions MUSE - 09/06/2023 8:28 AM FAMILY NURSE PRACTITIONER Sinus bradycardia Otherwise normal ECG No previous ECGs available Reviewed by HERIBERTO Marc Narrative Procedure Note Hema Lawrence M.D., Ph.D. - 09/06/2023 IMPRESSION: Sinus bradycardia Otherwise normal ECG No previous ECGs available Reviewed by HERIBERTO Marc Raven Chandra APRN, C.N.P., D.N.P. EC G ORDERABLES MUSE NA * Home Overnight Oximetry (09/05/2023) 09/05/2023 Impressions CECIL HINAISION EAP - 09/07/2023 7:27 AM FAMILY NURSE PRACTITIONER Overnight oximetry performed on room air. ??Baseline oxygen saturation was 91%. ??There were frequent oscillatory desaturations down to 78%. ??REUBEN:37. Impression: ??Abnormal. ??Findings are suggestive of a positional or sleep- related breathing disorder and a possible underlying gas exchange abnormality. Please note the [place] ??Sleepiness Scale of 14, indicative of excessive daytime sleepiness. Dictated by: Heri Gramajo M.D. Physician: Ramses Newman M.D. [id number] Narrative Procedure Note Ramses Newman M.D., Ph.D. - 09/07/2023 IMPRESSION: Overnight oximetry performed on room air. Baseline oxygen saturation was91%. There were frequent oscillatory desaturations down to 78%.REUBEN:37. Impression: Abnormal. Findings are suggestive of a positional orsleep-related breathing disorder and a possible underlying gas exchangeabnormality. Please note the [place] Sleepiness Scale of 14, indicativeof excessive daytime sleepiness. Dictated by: Heri Gramajo M.D. Physician: Ramses Newman M.D. [id number] Raven Chandra APRN, C.N.P., D.N.P. T ORDERABLES [facility] EA documented in this encounter Visit Diagnoses Diagnosis Atrial Fibrillation Unspecified (HCC)- Primary Hypertension Essential Primary Regurgitation Mitral Repair Mitral Valve Status Post Post COVID-19 Condition Hypertension Essential Primary Regurgitation Mitral Atrial Fibrillation Unspecified (HCC) Repair Mitral Valve Status Post Post COVID-19 Condition Hypertension Essential Primary Regurgitation Mitral Atrial Fibrillation Unspecified (HCC) Repair Mitral Valve Status Post Post COVID-19 Condition documented in this encounter
--- OUTSIDE RECORDS SUMMARY | 2023-11-23 09:05 | XMS_ITS | Encounter Summary ---
Author Name Unknown Organization [facility] Address [address] [place] [address] Care Team Providers Care Steel Rule Die Maker Name Role Phone Unavailable Primary Care Provider Unavailabl e Reason for Visit * Reason Onset Date Comments OSM 06/28/2023 CVD Encounter Details Date Type Department Care Team (Latest Contact Info) Description 06/28/2023 Clinical Communication Department of Cardiovascular Medicine in [place], [place] [address] [place] [address] Giuliana Ulrich M.D. [address] [place] [address] OSM (CVD ) Social History Tobacco Use Types Packs/Day Years [...]
--- OUTSIDE RECORDS SUMMARY | 2023-11-23 09:05 | XMS_ITS | Encounter Summary ---
Author Name Unknown Organization [facility] Address [address] [place] [address] Care Team Providers Care Bank President Name Role Phone Unavailable Primary Care Provider Unavailabl e Reason for Visit * Reason Onset Date Comments OSM Request 06/24/2023 Encounter Details Date Type Department Care Team (Latest Contact Info) Description 06/24/2023 Clinical Communication Department of Cardiovascular Medicine in [place], [place] [address] [place] [address] Food TesterNato M.D. OSM Request Social History Tobacco Use Types Packs/Day Years [...]
--- OUTSIDE RECORDS SUMMARY | 2023-11-23 09:05 | XMS_ITS | Encounter Summary ---
Author Name Unknown Organization [facility] Address [address] [place] [address] Care Team Providers Care Core Checker Name Role Phone Unavailable Primary Care Provider Unavailabl e Reason for Visit * Reason Onset Date Comments Pre-visit Intake 09/02/2023 Encounter Details Date Type Department Care Team (Latest Contact Info) Description 09/02/2023 8:15 AM CDT Clinical Communication Virtual Review in [place], [place] [address] [place] [address] Pre-visit Intake Social History Tobacco [...] your living situation today? I have a [facility] place to live 09/01/2023 Sex and [...]
--- OUTSIDE RECORDS SUMMARY | 2023-11-23 09:05 | XMS_ITS | Encounter Summary ---
Author Name Unknown Organization [facility] Address [address] [place] [address] Care Team Providers Care Door Opener Name Role Phone Unavailable Primary Care Provider Unavailabl e Encounter Details Date Type Department Care Team (Latest Contact Info) Description 06/30/2023 Orders Only Department of Cardiovascular Medicine in [place], [place] [address] [place] [address] Giuliana Ulrich M.D. [address] [place] [address] Regurgitation Mitral (Primary Dx) Social History Tobacco Use Types [...] of this encounter Visit Diagnoses Diagnosis Regurgitation Mitral- Primary documented in this encounter
--- OUTSIDE RECORDS SUMMARY | 2023-11-23 09:05 | XMS_ITS | Encounter Summary ---
Author Name Unknown Organization [facility] Address [address] [place] [address] Care Team Providers Care Rail Detector Car Operator Name Role Phone Unavailable Primary Care Provider Unavailabl e Reason for Referral * Outpatient (Routine) - Authorized Specialty Diagnoses / Procedures Referred By Contac t Referred To Contact Diagnoses Hypertension Essential Primary Regurgitation Mitral Atrial Fibrillation Unspecified (HCC) Repair Mitral Valve Status Post Post COVID-19 Condition Procedures ECG Heart rhythm monitor (Holter) Raven Chandra APRN, C.N.P., D.N.P. [address] [place] [address] [facility] Referral ID Status Reason Start Date Expiration Date V isits Requested Visits Authorized [id number] Authorized 07/07/2023 07/06/2024 1 1 GER TREASURY Reason for Visit * Outpatient (Routine) - Authorized Specialty Diagnoses / Procedures Referred By Contac t Referred To Contact Diagnoses Hypertension Essential Primary Regurgitation Mitral Atrial Fibrillation Unspecified (HCC) Repair Mitral Valve Status Post Post COVID-19 Condition Procedures ECG Heart rhythm monitor (Holter) Raven Chandra APRN, C.N.P., D.N.P. [address] [place] [phone] [facility] Referral ID Status Reason Start Date Expiration Date V isits Requested Visits Authorized [id number] Authorized 07/07/2023 07/06/2024 1 1 Encounter Details Date Type Department Care Team (Latest Contact Info) Description 09/05/2023 8:00 AM MANAGER TREASURY - 09/05/2023 11:59 PM MANAGER TREASURY Hospital Encounter Department of Cardiovascular Diseases in [place], [place] [address] [place] [address] Raven Chandra APRN, C.N.P., D.N.P. [address] [place] [address] Hypertension Essential Primary; Regurgitation Mitral; Atrial Fibrillation [...] your living situation today? I have a [facility] place to live 09/01/2023 Sex and [...] mouth. Prior to dental appointments 0 07/26/[address] tablet Take 81 [...] Procedure Name Priority Date/Time Associated Diagnosis Comments HOLTER MONITOR - IN CLINIC GROUNDSKEEPER Routine 09/06/2023 11:49 AM MANAGER TREASURY Hypertension Essential Primary Regurgitation Mitral Atrial Fibrillation Unspecified (HCC) Repair Mitral Valve Status Post Post COVID-19 Condition documented in this encounter Results * HOLTER MONITOR - IN CLINIC GROUNDSKEEPER (09/06/2023 11:49 AM MANAGER TREASURY) Min Heart Rate 52 bpm INFOB IONIC [...] Duration 0 duration INFOBION IC MOME AF [place] 0 percent INFOBIONIC MOME Symptom Count 7 count INFOBI ONIC MOME 09/05/2023 8:28 AM MANAGER TREASURY Narrative INFOBIONIC MOME - 09/06/2023 2:44 PM MANAGER TREASURY 1. The basic rhythm was sinus. The [...] were seen singly. PVCs were seen singly. Machine Made Shoe Unit Worker: HERIBERTO Calixto/ HERIBERTO Funes Procedure Note [...] PACs were seen singly. PVCs were seensingly. Machine Made Shoe Unit Worker: HERIBERTO Calixto/ HERIBERTO Funes Raven Chandra APRN, C.N.P., D.N.P. [facility] PROCEDURES [facility]ANYBIONIC LYNN NA documented in this encounter Visit Diagnoses Diagnosis Hypertension Essential Primary Regurgitation Mitral Atrial Fibrillation Unspecified (HCC) Repair Mitral Valve Status Post Post COVID-19 Condition documented in this encounter
== END 2023-11-23 09:01 | disposition home or self-care (01) ==
LOC: FBOREF 09:00
PROVIDERS: PCP Family Medicine; Visit Provider Family Medicine
DX: Z12.5 Encounter for screening for malignant neoplasm of prostate (principal)
CPT/HCPCS: G0103

== ENCOUNTER 2024-04-03 12:13 | Emergency (ER) | payer BC, SELFPAY ==
[2024-04-03] VITALS (10 sets, daily range): BP systolic 113–139; BP diastolic 70–82; PULSE 61–73; RESP 12–24; TEMP 36.6; O2SAT 94–100; BMI 24.1
--- NOTE | 2024-04-03 12:34 | CRLHL7_ITS ---
For Patients: As a result of the Century Cures Act, medical imaging exams and procedure reports are released immediately into your electronic medical record. You may view this report before your referring provider. If you have questions, please contact your health care provider. Indication Chest pain and shortness of breath Technique view(s) of the chest Comparison None Findings The cardiomediastinal silhouette and pulmonary vasculature are within normal limits. Likely cardiac valve replacement. There is no focal airspace consolidation, pleural effusion, or pneumothorax. No displaced fractures. Status post median sternotomy. Impression No acute cardiopulmonary process. Dictated by Young Jerome MD @ 04/03/2024 1:04:16 PM (Electronically Signed)
--- NOTE | 2024-04-03 12:38 | ED_ITS ---
HPI - General Adult General Chief complaint: Chest Pain Stated complaint: chest pain,shortness of breath Time Seen by Provider: 04/03/24 12:26 History of Present Illness HPI narrative: Patient reports sudden-onset central chest pain and shortness of breath while talking to [employer] on the phone. Notes he was frustrated with the call. 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 This pain feels like that. Nauseated. Last ate: breakfast 06 (banana and cereal). 58-year-old man presenting to the emergency department 40 minutes after onset of chest pain at the time of this interview. He has a sharp right of sternum chest pain that started during a stressful phone call he says. With this onset of pain he did check blood pressure noted it to be a little elevated. Was in usual state of health which does include some sternal pain it sounds like somewhat chronic post sternotomy. In December of 2021 had cardiac surgery with what he describes as a myocarditis post COVID and an NJ. apparently also had mitral valv e replacement and notes 3 valves are leaking at this point. Is pending a an x- ray of his chest for persistent sternal pain. He says this pain feels similar to myocarditis/mi. Is experiencing nausea. Little shortness of breath. When asked about needing something for pain at the end of this interview he does not feel like that is quite so important. No leg pain or swelling. Underlying history also of anxiety and GERD. No fever. No rash. Related Data Home Medications ?Medication ?Instructions ?Recorded ?Confirmed aspirin 81 mg tablet,delayed 81 mg PO DAILY 08/04/22 11/23/23 release multivitamin 1 tab PO QDAY 08/04/22 11/23/23 fluticasone propionate 50 2 spray intranasal DAILY PRN 10/08/22 11/23/23 mcg/actuation nasal spray,suspension atorvastatin 40 mg tablet 40 mg PO DAILY 11/22/23 04/03/24 arginine HCl (L-arginine) 1,000 mg 2,000 mg PO QDAY 11/23/23 11/23/23 tablet loratadine 10 mg tablet 10 mg PO QDAY 11/23/23 11/23/23 melatonin 10 mg tablet 10 mg PO HS 11/23/23 04/03/24 Previous Rx's ?Medication ?Instructions ?Recorded lorazepam 0.5 mg tablet (Ativan) 0.5 mg PO QDAY PRN anxiety #30 tabs 06/29/23 sildenafil 50 mg tablet 50 mg PO DIRECTED #6 tabs 07/29/23 amoxicillin 500 mg capsule 2,000 mg (4 x 500 mg) PO Q12H #12 11/14/23 caps verapamil 80 mg tablet 80 mg PO BID #180 tabs 12/16/23 Allergies Allergy/AdvReac Type Severity Reaction Status Date / Time Penicillins Allergy Mild Unknown Verified 04/03/24 12:26 Review of Systems Status of ROS: Reports: 6 or more systems reviewed and unremarkable except as noted in History and below [facility] Medical History Migraine ?G43.909 - Migraine, unspecified, not intractable, without status migrainosus (ICD-10) JOO (obstructive sleep apnea) ?G47.33 - Obstructive sleep apnea (adult) (pediatric) (ICD-10) Situational anxiety ?F41.8 - Other specified anxiety disorders (ICD-10) Asthmatic bronchitis ?J45.909 - Unspecified asthma, uncomplicated (ICD-10) Meniere's disease ?H81.09 - Meniere's disease, unspecified ear (ICD-10) Irritable bowel syndrome ?K58.9 - Irritable bowel syndrome without diarrhea (ICD-10) Gilbert's syndrome ?E80.4 - Gilbert syndrome (ICD-10) Gastroesophageal reflux disease ?K21.9 - Gastro-esophageal reflux disease without esophagitis (ICD-10) Erectile dysfunction ?N52.9 - Male erectile dysfunction, unspecified (ICD-10) Benign familial tremor ?G25.0 - Essential tremor (ICD-10) Surgical History History of nevus excision (06/16/21) ?Z98.890 - Other specified postprocedural states (ICD-10) ?Z87.2 - Personal history of diseases of the skin and subcutaneous tissue (ICD-10) Hx of mitral valve repair (04/20/22) ?Z98.890 - Other specified postprocedural states (ICD-10) Status post nasal septoplasty (12/23/17) ?Z98.890 - Other specified postprocedural states (ICD-10) History of vasectomy ?Z98.52 - Vasectomy status (ICD-10) History of tonsillectomy ?Z90.89 - Acquired absence of other organs (ICD-10) History of esophagogastroduodenoscopy (EGD) (06/08/13) ?Z98.890 - Other specified postprocedural states (ICD-10) History of colonoscopy (04/02/14) ?Z98.890 - Other specified postprocedural states (ICD-10) History of bunionectomy of right great toe (2010) ?Z98.890 - Other specified postprocedural states (ICD-10) Family History Father Heart disease Hyperlipidemia Parkinson's disease Mother Hyperlipidemia Paternal Grandfather Parkinson's disease Social History Narrative: single, 1 son, non-smoker, social EtOH, [employer] Smoking Status: Never smoker Little interest or pleasure in doing things: not at all Feeling down, depressed, or hopeless: not at all Exam Narrative: Exam Narrative: Pleasant. Mildly breathless/labored. Oxygenating 97% on room air on arrival. He is diffusely a little tremulous is if anxious or cold or in tremendous pain. Cranial nerves 2-12 intact. Lungs are clear. Heart is in regular rate and rhythm. Unsure if I am hearing murmurs. Distant. Abdomen is soft nontender. Well-healed sternotomy scar. Lower extremities are without edema. Is well-perfused. Sore to palpation of the anterior chest wall. Const: Vital Signs, click to edit/add: Vital Signs - 24 hr 04/03/24 12:26 04/03/24 12:26 Temperature 97.9 F Pulse Rate [Pulse Oximeter] 61 Respiratory Rate 22 Pulse Oximetry 97 97 Oxygen Delivery Me thod Room Air Documenting provider has reviewed patient's vital signs: yes Course Vital Signs Vital signs: Initial Vital Signs Temperature 97.9 F 04/03/24 12:26 Temperature Source Temporal Artery Scan 04/03/24 12:26 Pulse Rate 61 04/03/24 12:26 Respiratory Rate 22 04/03/24 12:26 Respiratory Effort Labored 04/03/24 12:26 Respiratory Depth Shallow 04/03/24 12:26 Respiratory Pattern Tachypnea 04/03/24 12:26 Pulse Oximetry 97 04/03/24 12:26 Oxygen Delivery Method Room Air 04/03/24 12:26 Vital Signs Temperature 97.9 F 04/03/24 12:26 Pulse Rate 61 04/03/24 12:26 Respiratory Rate 22 04/03/24 12:26 Pulse Oximetry 97 04/03/24 12:26 Oxygen Delivery Method Room Air 04/03/24 12:26 Temperature 97.9 F 04/03/24 12:26 Pulse Rate 69 04/03/24 15:30 Respiratory Rate 16 04/03/24 15:30 Blood Pressure 121/79 04/03/24 15:30 Pulse Oximetry 95 04/03/24 15:30 Oxygen Delivery Method Room Air 04/03/24 15:30 Medical Decision Making MDM Narrative Medical decision making narrative: Will certainly need to evaluate for ischemic cardiovascular disease. I do think this is complicated also by some degree of anxiety. Pulmonary embolus is in differential as well as vascular dissection. Pneumothorax. Consideration of pericarditis/myocarditis although abruptness of onset I think less likely. Initial EKG reviewed by me shows normal sinus rhythm at a rate of 70. It is without apparent ischemic change. Discussed findings of this EKG with Mr. Cage. Is less tremulous on my departure from this interview. Will be giving aspirin and something for stress which he would appreciate. On reassessment is markedly improved. Smiling easily. Says that discomfort is markedly improved near baseline now. Chest x-ray reviewed by me looks to be WNL. Indication Chest pain and shortness of breath Technique view(s) of the chest Comparison None Findings The cardiomediastinal silhouette and pulmonary vasculature are within normal limits. Likely cardiac valve replacement. There is no focal airspace consolidation, pleural effusion, or pneumothorax. No displaced fractures. Status post median sternotomy. Impression No acute cardiopulmonary process. Reviewing labs -- total bilirubin mildly elevated at 2.1. Looks to be unconjugated. AST only slightly elevated at 43. Discussed these findings with Mr. Cage. Is still little tender in the upper abdomen. With concerns will go ahead and also do an ultrasound focus on liver/gallbladder. Discussed findings with rail car painter/sandblaster. Radiology over-read as below Indication: right upper quadrant pain, mildly elevated bilirubin/AST Technique: Multiple transverse and longitudinal sonographic grayscale images of the right upper quadrant of the abdomen were obtained, supplemented with color, power, and spectral Doppler imaging. Comparison: None. Findings: Pancreas: Not well visualized. Liver length: 14.9 cm. Liver appearance: Normal. No biliary ductal dilation. Portal vein: Patent, hepatopetal flow. CBD: 0.2 cm. Gallbladder: Negative sonographic Guerra sign. Normal. Right kidney length: 10.8 cm. Right kidney appearance: Normal. Impression: No sonographic abnormality is seen in the right upper quadrant of the abdomen. Labs are otherwise reassuring during time in emergency department. No events on monitor. D-dimer minimally elevated. With improvement in symptoms and considering PERC rule I think low probability of PE. Has close follow-up with radiology See patient discharge plan for further discussion Medical Records Medical records reviewed: Yes I reviewed the patient's medical records Lab Data Lab results reviewed: Yes I reviewed the patient's lab results Labs: Lab Results 04/03/24 04/03/24 Range/Units 13:12 14:54 WBC 5.45 (4.50-11.00) K/uL RBC 5.03 (4.30-5.90) m/uL Hgb 14.4 (13.5-17.5) gm/dL Hct 42.9 (37.0-53.0) % MCV 85 (80-100) fL MCH 29 (26-34) pg MCHC 34 (32-36) gm/dL RDW Coeff of Hilaria 12.7 (11.5-15.5) % Plt Count 258 (140-440) K/uL Neut % (Auto) 61.6 (42.0-72.0) % Lymph % (Auto) 24.8 (20-44) % [place]wood % (Auto) 10.1 (0.0-11.0) % Eos % (Auto) 3.1 (0.0-7.0) % Baso % (Auto) 0.4 (0.0-3.0) % Neut # (Auto) 3.36 (1.7-7.0) K/uL Lymph # (Auto) 1.35 (0.90-2.90) K/uL Redwood # (Auto) 0.60 (0.00-0.90) K/UL Eos # (Auto) 0.17 (0.00-0.50) K/uL Baso # (Auto) 0.02 (0.00-0.30) K/uL Abs Immat Gran (auto) 0.00 (0.00-0.30) K/uL Imm/Tot Granulo (auto) 0.0 % D-Dimer Quant (PE/DVT) 0.73 H (0.00-0.50) ug/ml Sodium 141 (135-149) mmol/L Potassium 4.5 (3.6-5.1) mmol/L Chloride 104 (96-114) mmol/L Carbon Dioxide 30 (20-32) mmol/L Anion Gap 7 (7-15) mEq/L BUN 13 (7-30) mg/dL Creatinine 0.9 (0.5-1.5) mg/dL Estimated Creat Clear 99.40 Estimated GFR 100 ml/min Glucose 96 (60-115) mg/dL Calcium 9.5 (8.4-10.6) mg/dL Magnesium 2.4 (1.5-2.6) mg/dL Total Bilirubin 2.1 H (0.1-1.5) mg/dL Direct Bilirubin 0.4 (0.0-0.5) mg/dL AST 43 H (12-35) U/L ALT 29 (4-50) U/L Alkaline Phosphatase 71 (40-150) U/L Troponin I < 0.01 L (0.01-0.04) ng/mL C-Reactive Protein < 0.5 L (0.5-1.0) mg/dL NT-Pro-B Natriuret Pep 59 pg/mL Total Protein 8.7 H (6.0-8.3) g/dL Albumin 4.9 (3.3-5.0) g/dL POC Troponin I 0.01 0.01 (0.01-0.04) ng/ml Discharge Plan Discharge Clinical Impression: Atypical chest pain Patient Disposition: Home w/ Parent or Adult Condition: Improved Instructions: Chest Pain (DC) Additional Instructions: I am relieved you are feeling better. I do think that anxiety did amplify your symptoms though I do think that you have/had real chest pain. I am not sure what is the cause of your chest pain but I have not been able to demonstrate that you had any evidence of a heart attack. We have included copies of your imaging on this disc for discharge that you may take with you to your follow-up with cardiology at the end of the week. Otherwise return for recurrence of persistent chest pain, shortness of breath, lightheadedness. Prescriptions: No Action aspirin 81 mg tablet,delayed release (DR/EC) 81 mg PO DAILY multivitamin Tablet 1 tab PO QDAY fluticasone propionate 50 mcg/actuation spray,suspension 2 spray intranasal DAILY PRN lorazepam [Ativan] 0.5 mg tablet 0.5 mg PO QDAY PRN (Reason: anxiety) Qty: 30 0RF atorvastatin 40 mg tablet 40 mg PO DAILY melatonin 10 mg tablet 10 mg PO HS arginine HCl (L-arginine) 1,000 mg tablet 2,000 mg PO QDAY loratadine 10 mg tablet 10 mg PO QDAY sildenafil 50 mg tablet 50 mg PO DIRECTED Qty: 6 5RF Rx Instructions: TAKE 1 TAB 1 HR PRIOR TO INTERCOURSE amoxicillin 500 mg capsule 2,000 mg PO Q12H Qty: 12 2RF Rx Instructions: Take 4 caps 1 hour before dental work verapamil 80 mg tablet 80 mg PO BID Qty: 180 1RF Follow Up/Referrals: Teja Huff MD [Primary Care Provider] - Stand Alone Forms: [employer] Info Instructions
[2024-04-03 12:43] LABS: Troponin, Point-of-Care* 0.01 ng/ml (0.01-0.04)
--- OUTSIDE RECORDS SUMMARY | 2024-04-03 12:43 | XMS_ITS ---
Author Organization [facility] Address [address] [place] [address] Care Team Providers Care Utilities Ground Worker Name Role Phone Unavailable Unavailable Unavailable Surgery Details Not on file Complications Check Surgery Details section. Procedure Estimated Blood Loss Check Surgery Details section. Procedure Findings Check Surgery Details section. Procedure Specimens Taken Check Surgery Details section.
--- OUTSIDE RECORDS SUMMARY | 2024-04-03 12:43 | XMS_ITS | Encounter Summary ---
Author Organization [facility] Address [address] [place] [address] Care Team Providers Care Training Engineer Name Role Phone Elsewhere, Pcp Primary Care Provider Unavailabl e Reason for Referral * Outpatient (Routine) - Authorized Specialty Diagnoses / Procedures Referred By Contac t Referred To Contact Diagnoses Hypertension Essential Primary Endothelial Dysfunction Coronary Artery (HCC) Procedures DX Chest AP or PA and Lateral 2 Views Suraj Pelaez M.D. [address] [place] [phone] [facility] Referral ID Status Reason Start Date Expiration Date V isits Requested Visits Authorized [id number] Authorized 01/20/2024 01/19/2025 1 1 Encounter Details Date Type Department Care Team (Late st Contact Info) Description 01/20/2024 Orders Only Department of Cardiovascular Medicine in [place], [place] [address] [place] [phone] Suraj Pelaez M.D. [address] [place] [phone] Hypertension Essential Primary (Primary Dx); Endothelial Dysfunction Coronary Artery (HCC) Social History Tobacco Use Types Packs/Day Years [...] 27) 8 11/07 Nutrition Answer Date Recorded On average, how many serving s of [...] your living situation today? I have a [facility] place to live 09/01/2023 Sex and Gender Information Value Date Recorded Sex Assigned at Male 09/01/2023 8:44 AM CDT Gender Identity Male 09/01/2023 8:44 AM CDT Sexual Orientation Straight 09/01/2023 8: 44 AM CDT documented as of this encounter Plan of Treatment Upcoming Encounters Date Type Department Care Team (Late st Contact Info) Description 04/06/2024 8:00 AM CDT Appointment Department of Laboratory Medicine and Pathology, [facility], in [place], [place] [address] [place] [address] Suraj Pelaez M.D. [address] [place] [phone] 04/06/2024 10:00 AM CDT Appointment Department of Radiology, [facility], in [place], [place] [address] [place] [address] Suraj Pelaez M.D. [address] [place] [phone] 04/06/2024 4:15 PM CDT Office Visit Department of Cardiovascular Medicine in [place], [place] [address] [place] [address] Suraj Pelaez M.D. [address] [place] [address] Scheduled Orders Name Type Priority Associated Diagnoses Orde r Schedule Sodium Lab Routine Hypertension Essential Primary Endothelial Dysfunction Coronary Artery (HCC) Expected: 02/13/2024 (Approximate), Expires: 04/21/2025 Potassium Lab Routine Hypertension Essential Primary Endothelial Dysfunction Coronary Artery (HCC) Expected: 02/13/2024 (Approximate), Expires: 04/21/2025 Creatinine with Estimated GFR Lab Routine Hypertension Essential Primary Endothelial Dysfunction Coronary Artery (HCC) Expected: 02/13/2024 (Approximate), Expires: 04/21/2025 Glucose, Fasting Lab Routine Hypertension Essential Primary Endothelial Dysfunction Coronary Artery (HCC) Expected: 02/13/2024 (Approximate), Expires: 04/21/2025 Troponin T, 5th Generation Lab Routine Hypertension Essential Primary Endothelial Dysfunction Coronary Artery (HCC) Expected: 02/13/2024 (Approximate), Expires: 04/21/2025 NT-Pro B-Type Natriuretic Peptide (BNP) Lab Routine Hypertension Essential Primary Endothelial Dysfunction Coronary Artery (HCC) Expected: 02/13/2024 (Approximate), Expires: 04/21/2025 AST (Aspartate Aminotransferase) Lab Routine Hypertension Essential Primary Endothelial Dysfunction Coronary Artery (HCC) Expected: 02/13/2024 (Approximate), Expires: 04/21/2025 ALT (Alanine Aminotransferase) Lab Routine Hypertension Essential Primary Endothelial Dysfunction Coronary Artery (HCC) Expected: 02/13/2024 (Approximate), Expires: 04/21/2025 Lipid Panel Lab Routine Hypertension Essential Primary Endothelial Dysfunction Coronary Artery (HCC) Expected: 02/13/2024 (Approximate), Expires: 04/21/2025 Thyroid Function [place] Lab Routine Hypertension Essential Primary Endothelial Dysfunction Coronary Artery (HCC) Expected: 02/13/2024 (Approximate), Expires: 04/21/2025 C-Reactive Protein, High Sensitivity Lab Routine Hypertension Essential Primary Endothelial Dysfunction Coronary Artery (HCC) Expected: 02/13/2024 (Approximate), Expires: 04/21/2025 DX Chest AP or PA and Lateral 2 Views Imaging RAD - Routine (most inpatients and all outpatients) Hypertension Essential Primary Endothelial Dysfunction Coronary Artery (HCC) Expected: 02/13/2024 (Approximate), Expires: 04/21/2025 CBC with Differential, Blood Lab Routine Hypertension Essential Primary Endothelial Dysfunction Coronary Artery (HCC) Expected: 02/13/2024 (Approximate), Expires: 04/21/2025 documented as of this encounter Visit Diagnoses Diagnosis Hypertension Essential Primary- Primary Endothelial Dysfunction Coronary Artery (HCC) documented in this encounter Additional Health Concerns Assessment Noted Time PHQ-9 Depression Total Score: 8 11/07/19 24 8:10 AM MUSEUM INFORMATICS SPECIALIST documented as of this encounter Care Teams Training Engineer Relationship Specialty Start Date End Date Elsewhere, Pcp PCP - General Internal Medicine 11/07/23 04/01/24 documented as of this encounter
--- OUTSIDE RECORDS SUMMARY | 2024-04-03 12:43 | XMS_ITS | Clinical Summary ---
Author Organization [facility] Address [place], [place] [address] Care Team Providers Care Methods Time Analyst Name Role Phone Teja Huff MD Primary Care Provider + Allergies Active Allergy Reactions Criticality Noted Date Comments Penicillins *Unknown 12/13/2021 Medications Medication Sig Dispensed Refills Start Date End Date Status multivitamin (MVI) tablet Take 1 Tablet by mouth once daily. Active diphenhydrAMINE (BENADRYL) 25 mg capsule Take 25 mg by mouth every 6 hours if needed. Active acetaminophen (TYLENOL EXTRA STRGTH) 500 mg [...] obstructive sleep apnea MRD #1 1 unit 08/31/2023 Active Active Problems Problem Noted Date Diagnosed Date Paroxysmal atrial fibrillation 04/28/2023 S/P MVR (mitral valve repair) 04/20/2022 Overview: Mitral Valve Repair: Lemuel Dumont Physio II Annuloplasty Ring 36 mm by [employer]. Model 5200, SN [id number], Exp 01/26/2027. Implanted by Dr. Tesfaye on 04/20/2022. neocords Pericarditis 12/15/2021 Bilateral pulmonary infiltrates on chest x-ray 0 12/15/2021 Post covid-19 condition, unspecified 12/14/2021 Mitral valve prolapse 12/14/2021 GERD (gastroesophageal reflux disease) Family History Medical History Relation Name Comments [...] series ( season) 2023 01/26/2022, 02/07/2021, 01/17/2021 BMI (ht and wt on same day) for age 18+ 04/28/2024 04/28/2023, 05/19/2022, 05/18/2022, Additional history exists Influenza for age 50-64 07/01/2024 Lipids for age 45-75 12/15/2026 12/15/2021 Pneumococcal series for age 6-64 Aged Out No longer eligible based on patient's age to complete this topic Medical Devices Implanted Type Area Operations Scheduler Device Identifier Shelf Expiration Date Model / Serial / Lot Ring Mitral 36mm Physio Ii - [id number] Implanted:Qty: 1 on 04/20/2022 by Caden Tesfaye MD at [facility] N/A: Mitral Valve Dumont [employer] Darlene 01/26/2027 [id number] / / [id number] Procedures Procedure Name Priority Date/Time Associated Diagnosis Comments LIPID PANEL Early AM 12/15/2021 6:42 AM WASH AND GREASER from Last 3 Months or Most Recently Relevant to Health Maintenance Results * LIPID PANEL (12/15/2021 6:42 AM WASH AND GREASER) CHOLESTEROL,TOTAL 142 100 - 199 mg/dL 12/15/2021 7:51 AM WASH AND GREASER [facility] TRIGLYCERIDES 81 <150 mg/dL 12/15/2021 7:51 AM WASH AND GREASER [facility] HDL CHOLESTEROL 47 >40 mg/dL 7:51 AM WASH AND GREASER [facility] NON-HDL CHOLESTEROL 95 <145 mg/dl 12/15/2021 7:51 AM WASH AND GREASER [facility] CHOL/HDL RATIO 3.02 <4.50 12/15/2021 7:51 AM WASH AND GREASER [facility] LDL CHOLESTEROL 79 <=130 mg/dL 12/15/2021 7:51 AM WASH AND GREASER [facility] VLDL CHOLESTEROL 16 <=30 mg/dL 12/15/2021 7:51 AM [facility] TR[facility]AT[facility] PROVIDER ORDERED STATUS RANDOM 12/15/2021 7:51 AM [facility] Blood BLOOD SPECIMEN / Unknown Venipuncture / Unknown 12/15/2021 6:42 AM WASH AND GREASER 12/15/2021 7:30 AM WASH AND GREASER Hector Hickey NP [facility] [address] [place] [address], from Last 3 Months or Most Recently Relevant to Health Maintenance Advance Directives * Full Code (Latest Code Status on File) Date Activated Date Inactivated Comments 04/21/2022 10:57 AM 04/25/2022 5:29 PM Question Answer Comments Code Status Discussion: Reviewed Preferences * Full Code Date Activated Date Inactivated Comments 04/20/2022 6:07 AM 04/21/2022 10:57 AM Question Answer Comments Code Status Discussion: Unable to Assess Preferences, Provider to review later * Full Code Date Activated Date Inactivated Comments 12/13/2021 8:20 PM 12/18/2021 4:05 PM Question Answer Comments Code Status Discussion: Reviewed Preferences Care Teams Methods Time Analyst Relationship Specialty Start Date End Date Teja Huff MD [address] [place] [id number] PCP - General Family Practice 04/20/21
--- OUTSIDE RECORDS SUMMARY | 2024-04-03 12:43 | XMS_ITS | Encounter Summary ---
Author Organization [facility] Address [address] [place] [address] Care Team Providers Care Financial Aid Officer Name Role Phone Elsewhere, Pcp Primary Care Provider Unavailabl e Reason for Visit * Reason Onset Date Comments Pre-visit Intake 04/02/2024 Encounter Details Date Type Department Care Team (Latest Contact Info) Description 04/02/2024 9:30 AM CDT Clinical Communication Virtual Review in [place], [place] 200 [place] [address] Pre-visit Intake Social History Tobacco Use Types [...] your living situation today? I have a [facility] place to live 09/01/2023 Sex and [...] Appointment Department of Laboratory Medicine and Pathology, [facility] in [place], [place] [address] [place] [phone] Suraj Pelaez M.D. [address] [place] [phone] 04/06/2024 10:00 AM CDT Appointment Department of Radiology, [facility], in [place], [place] [address] [place] [address] Suraj Pelaez M.D. [address] [place] [phone] 04/06/2024 4:15 PM CDT Office Visit Department of Cardiovascular Medicine in [place], [place] [address] [place] [address] Suraj Pelaez M.D. [address] [place] [address] documented as of this encounter Visit Diagnoses Not on filedocumented in this encounter Additional Health Concerns Assessment Noted Time PHQ-9 Depression Total Score: 8 11/07/19 24 8:10 AM HAND PRINTED CIRCUIT BOARD ASSEMBLER documented as of this encounter Care Teams Financial Aid Officer Relationship Specialty Start Date End Date Elsewhere, Pcp PCP - General Internal Medicine 04/02/24 documented as of this encounter
--- OUTSIDE RECORDS SUMMARY | 2024-04-03 12:43 | XMS_ITS | Encounter Summary ---
Author Organization [facility] Address [address] [place] [address] Care Team Providers Care Circuit Court Judge Name Role Phone Elsewhere, Pcp Primary Care Provider Unavailabl e Reason for Visit * Reason Onset Date Comments Pre-visit Testing Orders 01/19/2024 Encounter Details Date Type Department Care Team (Latest Contact Info) Description 01/19/2024 Clinical Communication Department of Cardiovascular Medicine in [place], [place] [address] [place] [address] Suraj Pelaez M.D. [address] [place] [address] Pre-visit Testing Orders Social History Tobacco Use Types Packs/Day Years [...] Date Recorded Dental: Regular Dentist Yes 09/01/20 23 Employment Answer Date Recorded Employment status Employed and actively working without restrictions 09/01/2023 Housing Stability Answer Date Recorded What is your living situation today? I have a [facility] place to live 09/01/2023 Sex and [...] Appointment Department of Laboratory Medicine and Pathology, [facility] in [place], [place] [address] [place] [address] Suraj Pelaez M.D. [address] [place] [phone] 04/06/2024 10:00 AM CDT Appointment Department of Radiology, [facility] in [place], [place] [address] [place] [address] Suraj Pelaez M.D. [address] [place] [phone] 04/06/2024 4:15 PM CDT Office Visit Department of Cardiovascular Medicine in [place], [place] [address] [place] [address] Suraj Pelaez M.D. [address] [place] [address] documented as of this encounter Visit Diagnoses Not on filedocumented in this encounter Additional Health Concerns Assessment Noted Time PHQ-9 Depression Total Score: 8 11/07/19 24 8:10 AM HADOOP CONSULTANT documented as of this encounter Care Teams Circuit Court Judge Relationship Specialty Start Date End Date Elsewhere, Pcp PCP - General Internal Medicine 11/07/23 04/01/24 documented as of this encounter
--- OUTSIDE RECORDS SUMMARY | 2024-04-03 12:43 | XMS_ITS | Referral Summary ---
Author Organization [facility] Address [address] [place] [address] Care Team Providers Care Embroidery Cutter Name Role Phone Elsewhere, Pcp Primary Care Provider Unavailabl e Source Comments Patient records contain information from all sites at [facility]. For routine questions regarding patient records, call [phone] during business hours, M-F 8:00 AM - 5:00 PM Central Time. Record requests for emergency care only can be directed to [phone] at any time.[facility] Encounters Date Type Department Care Team Description 04/02/2024 9:30 AM CDT Clinical Communication Virtual Review in [place], [place] 200 [place] [address] Pre-visit Intake 01/20/2024 Orders Only Department of Cardiovascular Medicine in [address] [phone] Suraj Pelaez M.D. Hypertension Essential Primary (Primary Dx); Endothelial Dysfunction Coronary Artery (HCC) 01/19/2024 Clinical Communication Department of Cardiovascular Medicine in [address] [phone] Suraj Pelaez M.D. Pre-visit Testing Orders from Last 3 Months Allergies Active Allergy Reactions Criticality Noted Date Comments Mold Other (see comments) 09/02/2023 congestion Penicillins Rash 03/17/2022 At age 6. Medications Medication Sig Dispensed Refills Start Date End Date Status MULTIVITAMIN ORAL Take by mouth daily. Active aspirin [address] tablet Take 81 mg by mouth daily. 04/21/2022 Active amoxicillin (AMOXIL) 500 mg capsule Take 2,000 mg by mouth. Prior to dental appointments 07/26/2022 Active LORazepam (ATIVAN) 0.5 mg tablet Take 1 tablet by mouth at bedtime as needed for anxiety. 06/29/2023 Active sildenafiL (VIAGRA) 50 mg tablet Take 50 mg by mouth as needed. 07/31/2023 Active melatonin 10 mg tablet Take 10 mg by mouth at bedtime. Active arginine (L-ARGININE) 1,000 mg per tablet Take 1 tablet (1,000 mg total) by mouth 3 (three) times a day. 270 tablet 3 09/15/2023 4 Active Additional Information Patient taking differently:1,000 mg oral 3 times daily,Twice daily, Reported on 11/07/2023 atorvastatin (LIPITOR) 40 mg tablet TAKE 1 TABLET(40 MG) BY MOUTH DAILY 90 tablet 3 10/03/2023 Active DME CPAP DME Order Active verapamiL (CALAN) 80 mg tablet Take 80 mg by mouth 2 (two) times a day. 10/02/2023 Active loratadine (CLARITIN) 10 mg tablet Take 1 tablet by mouth daily. 05/18/2022 Active metoprolol tartrate (LOPRESSOR) 25 mg tablet Take 1 tablet (25 mg total) by mouth 2 (two) times a day. 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 I have a [facility] place to live 09/01/2023 Sex and Gender Information Value Date Recorded Sex Assigned at Male 09/01/2023 8:44 AM CDT Gender Identity Male 09/01/2023 8:44 AM CDT Sexual Orientation Straight 09/01/2023 8: 44 AM CDT Last Filed Vital Signs Vital Sign Reading Time Taken Comments Blood Pressure 118/72 11/08/2023 11:08 AM ASSOCIATE PROFESSOR PLANT PATHOLOGY Pulse 52 11/08/2023 11:08 AM ASSOCIATE PROFESSOR PLANT PATHOLOGY Temperature - - Respiratory Rate - - Oxygen Saturation - - Inhaled Oxygen Concentration - - Weight 86.9 kg (191 lb 9.3 oz) 11/08/2023 11:08 AM ASSOCIATE PROFESSOR PLANT PATHOLOGY Height 182 cm (5' 11.65) 11/08/2023 11:08 AM CS T Body Mass Index 26.23 11/08/2023 11:08 AM ASSOCIATE PROFESSOR PLANT PATHOLOGY Plan of Treatment Upcoming Encounters Date Type Department Care Team (Late st Contact Info) Description 04/06/2024 8:00 AM CDT Appointment Department of Laboratory Medicine and Pathology, [facility] in [place], [place] [address] [place] [phone] Suraj Pelaez M.D. [address] [place] [phone] 04/06/2024 10:00 AM CDT Appointment Department of Radiology, [facility] in [place], [place] [address] [place] [phone] Suraj Pelaez M.D. [address] [place] [phone] 04/06/2024 4:15 PM CDT Office Visit Department of Cardiovascular Medicine in [place], [place] [address] [place] [phone] Suraj Pelaez M.D. [address] [place] [phone] Medical Devices Implanted Type Area Furniture Assembler Device Identifier Shelf Expiration Date Model / Serial / Lot Epicardial Wires Cardiac Other Heart Description:Epicardial wires , 1.5T, 3T conditional, Normal/Normal scan mode. Claudine Marina 11/08/22 Annuloplasty Ring-04/20/2022 Implanted:04/20 (Quantity not on file) Vascular Other Heart [employer]ont [employer] 36 MM FESTUS DUMONT PHYSIO II ANNULOPLASTY RING / / Description:dumont physio t ube ring 36 mm Festus Dumont Physio II annuloplasty ring Procedures Procedure Name Priority Date/Time Associated Diagnosis Comments BASIC METABOLIC PANEL, S/P Routine 09/06/2023 8:57 AM ASSOCIATE PROFESSOR PLANT PATHOLOGY Hypertension Essential Primary Regurgitation Mitral Atrial Fibrillation Unspecified (HCC) Repair Mitral Valve Status Post Post COVID-19 Condition LIPID PANEL, S Routine 09/06/2023 8:57 AM ASSOCIATE PROFESSOR PLANT PATHOLOGY Hypertension Essential Primary Regurgitation Mitral Atrial Fibrillation Unspecified (HCC) Repair Mitral Valve Status Post Post COVID-19 Condition from Last 3 Months or Most Recently Relevant to Health Maintenance Results * Lipid Panel (09/06/2023 8:57 AM ASSOCIATE PROFESSOR PLANT PATHOLOGY) Triglycerides 112 mg/dL 09/06/2023 9:59 AM ASSOCIATE PROFESSOR PLANT PATHOLOGY DTL Comment: ----REFERENCE VALUE---- Normal: <150 mg/dL Borderline High: 150-199 mg/dL High: 200-499 mg/dL Very High: > or =500 mg/dL Cholesterol, Total 184 mg/dL 2022 9:59 AM ASSOCIATE PROFESSOR PLANT PATHOLOGY DTL Comment: ----REFERENCE VALUE---- Desirable: < 200 mg/dL Borderline High: 200 - 239 mg/dL High: > or = 240 mg/dL Cholesterol, LDL, Calculated 113 mg/dL 09/06/2023 9:59 AM ASSOCIATE PROFESSOR PLANT PATHOLOGY DTL Comment: ----REFERENCE VALUE---- Desirable: <100 mg/dL Above Desirable: 100-129 mg/dL Borderline High: 130-159 mg/dL High: 160-189 mg/dL Very High: >=190 mg/dL ----ADDITIONAL INFORMATION---- LDL cholesterol calculated using the Purvis/NIH equation. Cholesterol, HDL, S 51 >=40 mg/dL 09/06/2023 9:59 AM ASSOCIATE PROFESSOR PLANT PATHOLOGY DTL Cholesterol, Non-HDL, Calculated 133 mg/dL 09/06/2023 9:59 AM ASSOCIATE PROFESSOR PLANT PATHOLOGY DTL Comment: ----REFERENCE VALUE---- Desirable: <130 mg/dL Above Desirable: 130-159 mg/dL Borderline High: 160-189 mg/dL High: 190-219 mg/dL Very High: > or =220 mg/dL Fasting (8 HR or more) Yes 09/06/2023 9:28 AM ASSOCIATE PROFESSOR PLANT PATHOLOGY DTL Blood (Blood, Venous) 09/06/2023 8:57 AM ASSOCIATE PROFESSOR PLANT PATHOLOGY 09/06/2023 9:28 AM ASSOCIATE PROFESSOR PLANT PATHOLOGY Dieter Cortez APRNNMilagros, Joseph FITCH BLOOD ADD-ON [facility] [address] [place] [address], [facility] DTL [facility] [address] [place] [address] * Basic Metabolic Panel (09/06/2023 8:57 AM ASSOCIATE PROFESSOR PLANT PATHOLOGY) Potassium, S 4.7 3.6 - 5.2 mmol/L 09/06/2023 9:59 AM ASSOCIATE PROFESSOR PLANT PATHOLOGY DTL Sodium, S 137 135 - 145 mmol/L 09/06/2023 9:59 AM ASSOCIATE PROFESSOR PLANT PATHOLOGY DTL Chloride, S 102 98 - 107 mmol/L 09/06/2023 9:59 AM ASSOCIATE PROFESSOR PLANT PATHOLOGY DTL Bicarbonate, S 26 22 - 29 mmol/L 09/06/2023 9:59 AM ASSOCIATE PROFESSOR PLANT PATHOLOGY DTL Anion Gap 9 7 - 15 09/06/2023 9:59 AM ASSOCIATE PROFESSOR PLANT PATHOLOGY DTL BUN (Blood Urea Nitrogen), S 15 8 - 24 mg/dL 09/06/2023 9:59 AM ASSOCIATE PROFESSOR PLANT PATHOLOGY DTL Creatinine 1.08 0.74 - 1.35 mg/dL 09/06/2023 9:59 AM ASSOCIATE PROFESSOR PLANT PATHOLOGY DTL Estimated GFR (eGFR) 81 >=60 mL/min/BSA 09/06/2023 9:59 AM ASSOCIATE PROFESSOR PLANT PATHOLOGY DTL Comment: Estimated GFR calculated using the 2020 CKD_EPI creatinine equation. Calcium, Total, S 9.8 8.6 - 10.0 mg/dL 09/06/2023 9:59 AM ASSOCIATE PROFESSOR PLANT PATHOLOGY DTL Glucose, S 112 70 - 140 mg/dL 09/06/2023 9:59 AM ASSOCIATE PROFESSOR PLANT PATHOLOGY DTL Blood (Blood, Venous) 09/06/2023 8:57 AM ASSOCIATE PROFESSOR PLANT PATHOLOGY 09/06/2023 9:28 AM ASSOCIATE PROFESSOR PLANT PATHOLOGY Dieter Cortez APRNN.Lala., Joseph MASCORRO B BLOOD ADD-ON [facility] [address] [place] [address], [place] DTL [facility] [address] [place] [address] from Last 3 Months or Most Recently Relevant to Health Maintenance Care Teams Embroidery Cutter Relationship Specialty Start Date End Date Elsewhere, Pcp PCP - General Internal Medicine 04/02/24
--- OUTSIDE RECORDS SUMMARY | 2024-04-03 12:43 | XMS_ITS | Clinical Summary ---
Author Organization [facility] Address [address] [place] [address] Care Team Providers Care Director Of Strategic Communications Name Role Phone Unavailable Primary Care Provider [...] Comments Blood Pressure 124/79 10/30/2019 2:28 PM WORK ORDER DETAILER Pulse 69 10/30/2019 2:28 PM WORK ORDER DETAILER Temperature 36.8 ??C (98.2 ??F) 06/17/2014 12:39 PM C DT Respiratory Rate - - Oxygen Saturation 97% 10/30/2019 2:28 PM WORK ORDER DETAILER Inhaled Oxygen Concentration - - Weight 78 kg (172 lb) 06/17/2014 12:39 PM CDT Height - - Body Mass Index - - Plan of Treatment Not on file
--- OUTSIDE RECORDS SUMMARY | 2024-04-03 12:43 | XMS_ITS | Clinical Summary ---
Author Organization [facility] Address [address] [place] [address] Care Team Providers Care Head Machine Feeder Name Role Phone Elsewhere, Pcp Primary Care Provider Unavailabl e Source Comments Patient records contain information from all sites at [facility]. For routine questions regarding patient records, call [phone] during business hours, M-F 8:00 AM - 5:00 PM Central Time. Record requests for emergency care only can be directed to [phone] at any time.[facility] Allergies Active Allergy Reactions Criticality Noted Date [...] AM CDT Clinical Communication Virtual Review in [place], [place] [address] [place] [phone] Pre-visit Intake 01/20/2024 Orders Only Department of Cardiovascular Medicine in [place], [place] [address] [place] [phone] Suraj Pelaez M.D. Hypertension Essential Primary (Primary Dx); Endothelial Dysfunction Coronary Artery (HCC) 01/19/2024 Clinical Communication Department of Cardiovascular Medicine in [place], [place] [address] [place] [phone] Suraj Pelaez M.D. Pre-visit Testing Orders from Last 3 Months Family History Medical [...] your living situation today? I have a [facility] place to live 09/01/2023 Sex and Gender Information Value Date Recorded Sex Assigned at Male 09/01/2023 8:44 AM CDT Gender Identity Male 09/01/2023 8:44 AM CDT Sexual Orientation Straight 09/01/2023 8: 44 AM CDT Last Filed Vital Signs Vital Sign Reading Time Taken Comments Blood Pressure 118/72 11/08/2023 11:08 AM SUBSTATION OPERATOR CONVERSION Pulse 52 11/08/2023 11:08 AM SUBSTATION OPERATOR CONVERSION Temperature - - Respiratory Rate - - Oxygen Saturation - - Inhaled Oxygen Concentration - - Weight 86.9 kg (191 lb 9.3 oz) 11/08/2023 11:08 AM SUBSTATION OPERATOR CONVERSION Height 182 cm (5' 11.65) 11/08/2023 11:08 AM CS T Body Mass Index 26.23 11/08/2023 11:08 AM SUBSTATION OPERATOR CONVERSION Plan of Treatment Upcoming Encounters Date Type Department Care Team (Late st Contact Info) Description 04/06/2024 8:00 AM CDT Appointment Department of Laboratory Medicine and Pathology, [facility] in [place], [place] [address] [place] [phone] Suraj Pelaez M.D. [address] [place] [phone] 04/06/2024 10:00 AM CDT Appointment Department of Radiology, [facility] in [place], [place] [address] [place] [phone] Suraj Pelaez M.D. [address] [place] [phone] 04/06/2024 4:15 PM CDT Office Visit Department of Cardiovascular Medicine in [place], [place] [address] [place] [phone] Suraj Pelaez M.D. [address] [place] [phone] Health Maintenance Due Date Last Done Comments CT Colonography 1966 Cologuard 1966 Colonoscopy 1966 Colorectal Cancer Screening 1966 FIT 1966 HIV Screening 1966 Hepatitis C Screening 1966 Hepatitis B Vaccines (1 of 3 - 19+ 3-dose series) 1985 COVID-19 Vaccine ( - season) 2023 01/26/2022, 02/07/2021, 01/17/2021 Office Visit for Blood Pressure Check / Re-check 11/08/2024 11/08/2023 Fasting Glucose for Diabetes Screening 09/06/2026 09/06/2023, 05/25/2022, 04/25/2022, Additional history exists DTaP,Tdap,and Td Vaccines (5 - Td or Tdap) 09/27/2027 09/27/2017, 08/22/2007, 07/02/1997, Additional history exists Lipid (Cholesterol) Screening 09/06/2028 09/06/2023, 12/15/2021 Zoster Vaccines Completed 04/11/2023, 11/03/2020 Depression Screening (Annual PHQ-2) Completed 11/07/2023 Influenza Vaccine Completed 11/23/2023, , 09/27/2017, Additional history exists Pneumococcal vaccine (0-64 years) Aged Out No longer eligible based on patient's age to complete this topic Medical Devices Implanted Type Area Chocolate Molder Device Identifier Shelf Expiration Date Model / [...] METABOLIC PANEL, S/P Routine 09/06/2023 8:57 AM SUBSTATION OPERATOR CONVERSION Hypertension Essential Primary Regurgitation Mitral Atrial Fibrillation Unspecified (HCC) Repair Mitral Valve Status Post Post COVID-19 Condition LIPID PANEL, S Routine 09/06/2023 8:57 AM SUBSTATION OPERATOR CONVERSION Hypertension Essential Primary Regurgitation Mitral Atrial Fibrillation Unspecified (HCC) Repair Mitral Valve Status Post Post COVID-19 Condition from Last 3 Months or Most Recently Relevant to Health Maintenance Results * Lipid Panel (09/06/2023 8:57 AM SUBSTATION OPERATOR CONVERSION) Triglycerides 112 mg/dL 09/06/2023 9:59 AM SUBSTATION OPERATOR CONVERSION DTL Comment: ----REFERENCE VALUE---- Normal: <150 mg/dL Borderline High: 150-199 mg/dL High: 200-499 mg/dL Very High: > or =500 mg/dL Cholesterol, Total 184 mg/dL 2022 9:59 AM SUBSTATION OPERATOR CONVERSION DTL Comment: ----REFERENCE VALUE---- Desirable: < 200 mg/dL Borderline High: 200 - 239 mg/dL High: > or = 240 mg/dL Cholesterol, LDL, Calculated 113 mg/dL 09/06/2023 9:59 AM SUBSTATION OPERATOR CONVERSION DTL Comment: ----REFERENCE VALUE---- Desirable: <100 mg/dL Above Desirable: 100-129 mg/dL Borderline High: 130-159 mg/dL High: 160-189 mg/dL Very High: >=190 mg/dL ----ADDITIONAL INFORMATION---- LDL cholesterol calculated using the Purvis/NIH equation. Cholesterol, HDL, S 51 >=40 mg/dL 09/06/2023 9:59 AM SUBSTATION OPERATOR CONVERSION DTL Cholesterol, Non-HDL, Calculated 133 mg/dL 09/06/2023 9:59 AM SUBSTATION OPERATOR CONVERSION DTL Comment: ----REFERENCE VALUE---- Desirable: <130 mg/dL Above Desirable: 130-159 mg/dL Borderline High: 160-189 mg/dL High: 190-219 mg/dL Very High: > or =220 mg/dL Fasting (8 HR or more) Yes 09/06/2023 9:28 AM SUBSTATION OPERATOR CONVERSION DTL Blood (Blood, Venous) 09/06/2023 8:57 AM SUBSTATION OPERATOR CONVERSION 09/06/2023 9:28 AM SUBSTATION OPERATOR CONVERSION Raven Chandra APRN, C.N.P., D.N.P. LA B BLOOD ADD-ON [facility] [place] [address] [place] [address], [facility] DTL [facility] [address] [place] [address] * Basic Metabolic Panel (09/06/2023 8:57 AM SUBSTATION OPERATOR CONVERSION) Potassium, S 4.7 3.6 - 5.2 mmol/L 09/06/2023 9:59 AM SUBSTATION OPERATOR CONVERSION DTL Sodium, S 137 135 - 145 mmol/L 09/06/2023 9:59 AM SUBSTATION OPERATOR CONVERSION DTL Chloride, S 102 98 - 107 mmol/L 09/06/2023 9:59 AM SUBSTATION OPERATOR CONVERSION DTL Bicarbonate, S 26 22 - 29 mmol/L 09/06/2023 9:59 AM SUBSTATION OPERATOR CONVERSION DTL Anion Gap 9 7 - 15 09/06/2023 9:59 AM SUBSTATION OPERATOR CONVERSION DTL BUN (Blood Urea Nitrogen), S 15 8 - 24 mg/dL 09/06/2023 9:59 AM SUBSTATION OPERATOR CONVERSION DTL Creatinine 1.08 0.74 - 1.35 mg/dL 09/06/2023 9:59 AM SUBSTATION OPERATOR CONVERSION DTL Estimated GFR (eGFR) 81 >=60 mL/min/BSA 09/06/2023 9:59 AM SUBSTATION OPERATOR CONVERSION DTL Comment: Estimated GFR calculated using the 2020 CKD_EPI creatinine equation. Calcium, Total, S 9.8 8.6 - 10.0 mg/dL 09/06/2023 9:59 AM SUBSTATION OPERATOR CONVERSION DTL Glucose, S 112 70 - 140 mg/dL 09/06/2023 9:59 AM SUBSTATION OPERATOR CONVERSION DTL Blood (Blood, Venous) 09/06/2023 8:57 AM SUBSTATION OPERATOR CONVERSION 09/06/2023 9:28 AM SUBSTATION OPERATOR CONVERSION Raven Chandra APRN, C.N.P., D.N.P. LA B BLOOD ADD-ON [facility] [place] [address] [place] [address], [place] DTL [facility] [address] [place] [address] from Last 3 Months or Most Recently Relevant to Health Maintenance Care Teams Head Machine Feeder Relationship Specialty Start Date End Date Elsewhere, Pcp PCP - General Internal Medicine 04/02/24
--- OUTSIDE RECORDS SUMMARY | 2024-04-03 12:43 | XMS_ITS | Referral Summary ---
Author Organization [facility] Address [address] [place] [address] Care Team Providers Care Manager Studio Name Role Phone Unavailable Primary Care Provider [...] Comments Blood Pressure 124/79 10/30/2019 2:28 PM METAL TECHNICIAN Pulse 69 10/30/2019 2:28 PM METAL TECHNICIAN Temperature 36.8 ??C (98.2 ??F) 06/17/2014 12:39 PM C DT Respiratory Rate - - Oxygen Saturation 97% 10/30/2019 2:28 PM METAL TECHNICIAN Inhaled Oxygen Concentration - - Weight 78 kg (172 lb) 06/17/2014 12:39 PM CDT Height - - Body Mass Index - - Plan of Treatment Not on file
[2024-04-03 13:17] LABS: Basophils Absolute Auto 0.02 K/uL (0.00-0.30); Basophils Percent Auto 0.4 % (0.0-3.0); Eosinophils Absolute Auto 0.17 K/uL (0.00-0.50); Eosinophils Percent Auto 3.1 % (0.0-7.0); Hematocrit 42.9 % (37.0-53.0); Hemoglobin* 14.4 gm/dL (13.5-17.5); Lymphocytes Absolute Auto 1.35 K/uL (0.90-2.90); Lymphocytes Percent Auto 24.8 % (20-44); Mean Corpuscular HGB Conc 34 gm/dL (32-36); Mean Corpuscular Hemoglobin 29 pg (26-34); Mean Corpuscular Volume 85 fL (80-100); Monocytes Percent Auto 10.1 % (0.0-11.0); Neutrophils Absolute Auto 3.36 K/uL (1.7-7.0); Neutrophils Percent Auto 61.6 % (42.0-72.0); Platelet Count* 258 K/uL (140-440); RDW Coefficient of Variation % 12.7 % (11.5-15.5); Red Blood Count 5.03 m/uL (4.30-5.90); White Blood Count* 5.45 K/uL (4.50-11.00)
[2024-04-03 13:18] LABS: Slide Review Reflex No
[2024-04-03 13:37] LABS: Chloride* 104 mmol/L (96-114); Potassium* 4.5 mmol/L (3.6-5.1); Sodium* 141 mmol/L (135-149)
[2024-04-03 13:38] LABS: Albumin* 4.9 g/dL (3.3-5.0)
[2024-04-03 13:39] LABS: D Dimer Quantitative* 0.73 ug/ml (0.00-0.50)
[2024-04-03 13:40] LABS: Anion Gap 7 mEq/L (7-15); Blood Urea Nitrogen* 13 mg/dL (7-30); Carbon Dioxide* 30 mmol/L (20-32); Creatinine* 0.9 mg/dL (0.5-1.5); Estimated Glomerular Filt Rate 100 ml/min
[2024-04-03 13:41] LABS: Alanine Aminotransferase* 29 U/L (4-50); Alkaline Phosphatase* 71 U/L (40-150); Aspartate Amino Transferase* 43 U/L (12-35); Bilirubin Direct* 0.4 mg/dL (0.0-0.5); Bilirubin Total* 2.1 mg/dL (0.1-1.5); Calcium* 9.5 mg/dL (8.4-10.6); Glucose* 96 mg/dL (60-115); Magnesium* 2.4 mg/dL (1.5-2.6); Total Protein* 8.7 g/dL (6.0-8.3)
[2024-04-03 13:44] LABS: C Reactive Protein* < 0.5 mg/dL (0.5-1.0)
[2024-04-03 13:50] LABS: NT Pro B Type NatriureticPept* 59 pg/mL
[2024-04-03 14:03] LABS: Troponin I* < 0.01 ng/mL (0.01-0.04)
--- NOTE | 2024-04-03 14:13 | CRLHL7_ITS ---
For Patients: As a result of the Century Cures Act, medical imaging exams and procedure reports are released immediately into your electronic medical record. You may view this report before your referring provider. If you have questions, please contact your health care provider. Indication: right upper quadrant pain, mildly elevated bilirubin/AST Technique: Multiple transverse and longitudinal sonographic grayscale images of the right upper quadrant of the abdomen were obtained, supplemented with color, power, and spectral Doppler imaging. Comparison: None. Findings: Pancreas: Not well visualized. Liver length: 14.9 cm. Liver appearance: Normal. No biliary ductal dilation. Portal vein: Patent, hepatopetal flow. CBD: 0.2 cm. Gallbladder: Negative sonographic Guerra sign. Normal. Right kidney length: 10.8 cm. Right kidney appearance: Normal. Impression: No sonographic abnormality is seen in the right upper quadrant of the abdomen. Dictated by Dutch Gotti MD @ 04/03/2024 3:08:01 PM (Electronically Signed)
[2024-04-03 15:06] LABS: Troponin, Point-of-Care* 0.01 ng/ml (0.01-0.04)
== END 2024-04-03 16:06 | disposition home or self-care (01) ==
PROVIDERS: Emergency Provider Family Medicine; PCP Family Medicine
DX: R07.9 Chest pain, unspecified (principal)
CPT/HCPCS: 36415; 71045; 76705; 80048; 80076; 83735; 83880; 84484; 85025; 85379; 86140; 94761; 99284

== ENCOUNTER 2024-05-25 15:18 | Outpatient (CLI) | payer BC, SELFPAY ==
--- OUTSIDE RECORDS SUMMARY | 2024-05-25 15:20 | XMS_ITS | Clinical Summary ---
Author Organization [facility] Address [address] [place] [address] Care Team Providers Care Car Worker Helper Name Role Phone Elsewhere, Pcp Primary Care Provider Unavailabl e Source Comments Patient records contain information from all sites at [facility]. For routine questions regarding patient records, call [phone] during business hours, M-F 8:00 AM - 5:00 PM Central Time. Record requests for emergency care only can be directed to [phone] at any time.[facility] Allergies Active Allergy Reactions Criticality Noted [...] 10/03/2023 Active DME CPAP DME Order Active loratadine (CLARITIN) 10 mg tablet Take 1 tablet by mouth daily. 05/18/2022 Active amitriptyline (ELAVIL) 10 mg tablet Take 1 tablet (10 mg total) by mouth at bedtime. 90 tablet 3 04/06/2024 04/06/2025 Active verapamiL (CALAN-SR) 240 mg ER tablet Take 1 tablet (240 mg total) by mouth at bedtime. 90 tablet 3 04/13/2024 04/13/2025 Active nitroglycerin (NITROSTAT) 0.[address] 1 tablet (0.4 mg total) under the tongue every 5 (five) minutes as needed for chest pain. May repeat every 5 minutes for up to 3 doses Do not use if you have used sildenafil on the same day. 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 04/16/2024 Clinical Communication Department of Cardiovascular Medicine in [place], [place] [address] [place] [address] Suraj Pelaez M.D. Needs 24-hr urine container sent to him 04/13/2024 10:15 AM CDT Telemedicine Department of Cardiovascular Medicine in [place], [place] [address] [place] [address] Suraj Pelaez M.D. Endothelial Dysfunction Coronary Artery (HCC) (Primary Dx) 04/12/2024 9:27 AM CDT - 04/12/2024 11:59 PM CDT Hospital Encounter Department of Radiology, [place], [place] [address] [place] [address] Suraj Pelaez M.D. Pain Epigastric Discharge Disposition: Home or Self Care 04/06/2024 5:07 PM CDT - 04/06/2024 11:59 PM CDT Hospital Encounter Department of Laboratory Medicine and Pathology, [place], [place] [address] [place] [address] Suraj Pelaez M.D. Pain Epigastric Discharge Disposition: Home or Self Care 04/06/2024 4:50 PM CDT - 04/06/2024 5:06 PM CDT Hospital Encounter Department of Laboratory Medicine and Pathology, [place], [place] [address] [place] [address] Sruaj Pelaez M.D. Pain Epigastric Discharge Disposition: Home or Self Care 04/06/2024 4:15 PM CDT Office Visit Department of Cardiovascular Medicine in [place], [place] [address] [place] [address] Suraj Pelaez M.D. Pain Epigastric (Primary Dx); Pain Pleuritic Chest 04/06/2024 9:02 AM CDT - 04/06/2024 4:49 PM CDT [facility] [place] [place] [address] [place] [address] Suraj Pelaez M.D. Hypertension Essential Primary; Endothelial Dysfunction Coronary Artery (HCC) Discharge Disposition: Home or Self Care 04/06/2024 7:55 AM CDT - 04/06/2024 9:01 AM CDT Hospital Encounter Department of Laboratory Medicine and Pathology, [place], [place] [address] [place] [address] Suraj Pelaez M.D. Hypertension Essential Primary; Endothelial Dysfunction Coronary Artery (HCC) Discharge Disposition: Home or Self Care 04/02/2024 9:30 AM CDT Clinical Communication Virtual Review in [place], [place] [address] [place] [address] Pre-visit Intake from Last 3 Months Family [...] your living situation today? I have a [facility] place to live 09/01/2023 Sex and Gender Information Value Date Recorded Sex Assigned at Male 09/01/2023 8:44 AM CDT Gender Identity Male 09/01/2023 8:44 AM CDT Sexual Orientation Straight 09/01/2023 8: 44 AM CDT Last Filed Vital Signs Vital Sign Reading Time Taken Comments Blood Pressure 134/73 04/06/2024 4:06 PM CDT Pulse 69 04/06/2024 4:06 PM CDT Temperature - - Respiratory Rate - - Oxygen Saturation - - Inhaled Oxygen Concentration - - Weight 82.4 kg (181 lb 10.5 oz) 04/06/2024 4:06 PM CDT Height 181.7 cm (5' 11.54) 04/06/2024 4:06 PM C DT Body Mass Index 24.96 04/06/2024 4:06 PM CDT Plan of Treatment Health Maintenance Due Date Last Done Comments CT Colonography 1966 Cologuard 1966 Colonoscopy 1966 Colorectal Cancer Screening 1966 FIT 1966 HIV Screening 1966 Hepatitis C Screening 1966 Hepatitis B Vaccines (1 of 3 - 19+ 3-dose series) 1985 COVID-19 Vaccine ( season) 2023 01/26/2022, 02/07/2021, 01/17/2021 Influenza Vaccine (#1) 2024 , 08/09/2019, 09/27/2017, Additional history exists Office Visit for Blood Pressure Check / Re-check 04/06/2025 04/06/2024 Fasting Glucose for Diabetes Screening 04/06/2027 04/06/2024, 09/06/2023, 05/25/2022, Additional history exists DTaP,Tdap,and Td Vaccines (5 - Td or Tdap) 09/27/2027 09/27/2017, 08/22/2007, 07/02/1997, Additional history exists Lipid (Cholesterol) Screening 04/06/2029 04/06/2024, 09/06/2023, 12/15/2021 Zoster Vaccines Completed 04/11/2023, 11/03/2020 Depression Screening (Annual PHQ-2) Completed 11/07/2023 Pneumococcal vaccine (0-64 years) Aged Out No longer eligible based on patient's age to complete this topic Medical Devices Implanted Type Area Land [employer] Analyst Device Identifier Shelf Expiration Date Model / [...] Procedure Name Priority Date/Time Associated Diagnosis Comments CT ABDOMEN ANGIOGRAM WITH IV CONTRAST RAD - Routine (most inpatients and all outpatients) 04/12/2024 10:20 AM CDT Pain Epigastric CORTISOL, S Routine 04/06/2024 5:17 PM CDT Pain Epigastric DX CHEST AP OR PA AND LATERAL 2 VIEWS RAD - Routine (most inpatients and all outpatients) 04/06/2024 9:10 AM CDT Hypertension Essential Primary Endothelial Dysfunction Coronary Artery (HCC) C-REACTIVE PROTEIN, HIGH SENSITIVITY, S/P Routine 04/06/2024 8:16 AM CDT Hypertension Essential Primary Endothelial Dysfunction Coronary Artery (HCC) THYROID FUNCTION CASCADE, S Routine 04/06/2024 8:16 AM CDT Hypertension Essential Primary Endothelial Dysfunction Coronary Artery (HCC) LIPID PANEL, S Routine 04/06/2024 8:16 AM CDT Hypertension Essential Primary Endothelial Dysfunction Coronary Artery (HCC) ALANINE AMINOTRANSFERASE (ALT), S/P Routine 04/06/2024 8:16 AM CDT Hypertension Essential Primary Endothelial Dysfunction Coronary Artery (HCC) ASPARTATE AMINOTRANSFERASE (AST), S/P Routine 04/06/2024 8:16 AM CDT Hypertension Essential Primary Endothelial Dysfunction Coronary Artery (HCC) NT-PRO B-TYPE NATRIURETIC PEPTIDE (BNP), S Routine 04/06/2024 8:16 AM CDT Hypertension Essential Primary Endothelial Dysfunction Coronary Artery (HCC) CREATININE WITH EGFR, S/P Routine 04/06/2024 8:16 AM CDT Hypertension Essential Primary Endothelial Dysfunction Coronary Artery (HCC) POTASSIUM, S/P Routine 04/06/2024 8:16 AM CDT Hypertension Essential Primary Endothelial Dysfunction Coronary Artery (HCC) SODIUM, S/P Routine 04/06/2024 8:16 AM CDT Hypertension Essential Primary Endothelial Dysfunction Coronary Artery (HCC) CBC WITH DIFFERENTIAL, B Routine 04/06/2024 8:15 AM CDT Hypertension Essential Primary Endothelial Dysfunction Coronary Artery (HCC) TROPONIN T, 5TH GEN, P Routine 8:15 AM CDT Hypertension Essential Primary Endothelial Dysfunction Coronary Artery (HCC) GLUCOSE, FASTING, S/P Routine 04/06/2024 8:15 AM CDT Hypertension Essential Primary Endothelial Dysfunction Coronary Artery (HCC) CORTISOL, S Routine 04/06/2024 8:14 AM CDT Pain Epigastric from Last 3 Months Results * CT Abdomen Angiogram with IV Contrast (04/12/2024 10:20 AM CDT) Anatomical Region Laterality Modality Abdomen, Cardiovascular RST LOS, Abdominal ARZ LOS, Vascular Interventional ARZ LOS, Vascular Interventional FLA LOS, Abdominal FLA LOS, Procedural, Vascular Interventional NWWI LOS N/A Computed Tomography, Compute d Tomography 04/12/2024 10:1 9 AM CDT Impressions 04/12/2024 10:32 AM CDT 1. No evidence of median arcuate ligament compression of the celiac artery. 2. Incidental 6 mm and 3 mm cystic lesions in the head of the pancreas. Differential considerations include small cysts, pseudocysts, and side branch intraductal papillary mucinous neoplasms. Please refer to the attached guidelines. Narrative 04/12/2024 10:32 AM CDT EXAM: ??CT ABDOMEN ANGIOGRAM WITH IV CONTRAST Including 3D image post-processing with or without AI assistance. COMPARISON: ??No prior CT abdomen/pelvis available at the time dictation. Outside CT chest 05/26/2022. FINDINGS: VASCULAR FINDINGS: Widely patent celiac axis. No evidence of median arcuate ligament compression on inspiratory or expiratory images. The abdominal aorta and proximal common iliac arteries are widely patent and normal in size without detectable atherosclerotic plaque. The included portions of the superior and inferior mesenteric arteries are widely patent and normal in size. Normal variant replaced left hepatic artery arising from the left gastric artery. Widely patent single bilateral renal arteries. ADDITIONAL FINDINGS: Sternotomy with mitral annuloplasty. Retained epicardial pacing wires. Hypodense/cystic 6 mm lesion in the head of the pancreas (series 5 image 115; series 6 image 113). Additional tiny 3 mm hypodense or cystic lesion in the head of the pancreas (series 6 image 119). Degenerative changes of the spine. CONSENSUS FOLLOW-UP RECOMMENDATIONS FOR INCIDENTAL PANCREATIC CYSTS: Maximum cyst dimension <15 mm without high-risk imaging features*: Follow-up MRI/MRCP with and without IV contrast annually for 2 years. If stable, then repeat imaging every 2 years as long as clinically indicated. Maximum cyst dimension greater than or equal to15mm or any cyst with high-risk imaging features*: E-consult to pancreas clinic is recommended as clinically indicated. *High-risk features include mural nodule or solid component, thickened/enhancing cyst wall, main pancreatic duct diameter >5 mm, abrupt change in main pancreatic duct caliber, lymphadenopathy, cyst growth rate >5 mm/2 years, or cystic lesion causing biliary obstruction. These guidelines were developed by consensus of [facility] pancreatologists and radiologists. However, there is currently no evidence that following the guidelines will improve outcomes. The guidelines should be applied in the clinical context of the individual patient. Patients who are unlikely to be surgical candidates due to severe comorbidities or would not opt for surgery may require less frequent or no follow-up. Maximum cyst dimension refers to the largest measurement of the largest cyst in the pancreas. In young, otherwise healthy patients, consider an extended period of surveillance. Procedure Note Williams Montano M.D. - 04/12/2024 EXAM: CT ABDOMEN ANGIOGRAM WITH IV CONTRAST Including 3D image post-processing with or without AI assistance. COMPARISON: No prior CT abdomen/pelvis available at the time dictation.Outside CT chest 05/26/2022. FINDINGS: VASCULAR FINDINGS: Widely patent celiac axis. No evidence of median arcuate ligamentcompression on inspiratory or expiratory images. The abdominal aorta and proximal common iliac arteries are widely patentand normal in size without detectable atherosclerotic plaque. The included portions of the superior and inferior mesenteric arteries arewidely patent and normal in size. Normal variant replaced left hepaticartery arising from the left gastric artery. Widely patent single bilateral renal arteries. ADDITIONAL FINDINGS: Sternotomy with mitral annuloplasty. Retained epicardial pacing wires. Hypodense/cystic 6 mm lesion in the head of the pancreas (series 5 [id number]; series 6 image 113). Additional tiny 3 mm hypodense or cystic lesionin the head of the pancreas (series 6 image 119). Degenerative changes of the spine. CONSENSUS FOLLOW-UP RECOMMENDATIONS FOR INCIDENTAL PANCREATIC CYSTS: Maximum cyst dimension <15 mm without high-risk imaging features*:Follow-up MRI/MRCP with and without IV contrast annually for 2 years. Ifstable, then repeat imaging every 2 years as long as clinicallyindicated. Maximum cyst dimension greater than or equal to15mm or any cyst withhigh-risk imaging features*: E-consult to pancreas clinic is recommendedas clinically indicated. *High-risk features include mural nodule or solid component,thickened/enhancing cyst wall, main pancreatic duct diameter >5 mm, abruptchange in main pancreatic duct caliber, lymphadenopathy, cyst growth rate>5 mm/2 years, or cystic lesion causing biliary obstruction. These guidelines were developed by consensus of [facility] and radiologists. However, there is currently no evidencethat following the guidelines will improve outcomes. The guidelines shouldbe applied in the clinical context of the individual patient. Patients who are unlikely to be surgical candidatesdue to severe comorbidities or would not opt for surgery may require lessfrequent or no follow-up. Maximum cyst dimension refers to the largestmeasurement of the largest cyst in the pancreas. In young, otherwise healthy patients, consider an extendedperiod of surveillance. IMPRESSION: 1. No evidence of median arcuate ligament compression of the celiacartery. 2. Incidental 6 mm and 3 mm cystic lesions in the head of the pancreas.Differential considerations include small cysts, pseudocysts, and sidebranch intraductal papillary mucinous neoplasms. Please refer to theattached guidelines. Suraj Pelaez M.D. IMG CT PROCEDURES * Cortisol (04/06/2024 5:17 PM CDT) Only the most recent of2 resultswithin the time period is included. Cortisol PM Result 4.9 2.5 - 12 mcg/dL 04/06/2024 6:15 PM CDT DTL Blood (Blood, Venous) 04/06/2024 5:17 PM CDT 04/06/2024 5:50 PM CDT Suraj Pelaez M.D. LAB BLOOD ADD-ON [facility] [address] [place] [address], [facility]St[facility] Laboratories[facility] [address] [place] [address] * DX Chest AP or PA and Lateral 2 Views (04/06/2024 9:10 AM CDT) Anatomical Region Laterality Modality Chest, Thoracic RST LOS, Tho racic ARZ LOS, Thoracic FLA LOS N/A Digital Radiography Impressions 04/06/2024 9:43 AM CDT Sternotomy with MVR. Chest otherwise negative. Narrative 04/06/2024 9:43 AM CDT EXAM: ??DX CHEST AP OR PA AND LATERAL 2 VIEWS Procedure Note Gualberto Garcia M.D. - 04/06/2024 EXAM: DX CHEST AP OR PA AND LATERAL 2 VIEWS IMPRESSION: Sternotomy with MVR. Chest otherwise negative. Suraj Pelaez M.D. IMG DIAGNOSTIC IMAGI NG PROCEDURES * Lipid Panel (04/06/2024 8:16 AM CDT) Triglycerides 76 mg/dL 04/06/2024 9:26 AM CDT DTL Comment: ----REFERENCE VALUE---- Normal: <150 mg/dL Borderline High: 150-199 mg/dL High: 200-499 mg/dL Very High: > or =500 mg/dL Cholesterol, Total 117 mg/dL 2023 9:26 AM CDT DTL Comment: ----REFERENCE VALUE---- Desirable: < 200 mg/dL Borderline High: 200 - 239 mg/dL High: > or = 240 mg/dL Cholesterol, LDL, Calculated 46 mg/dL 04/06/2024 9:26 AM CDT DTL Comment: ----REFERENCE VALUE---- Desirable: <100 mg/dL Above Desirable: 100-129 mg/dL Borderline High: 130-159 mg/dL High: 160-189 mg/dL Very High: >=190 mg/dL ----ADDITIONAL INFORMATION---- LDL cholesterol calculated using the Purvis/NIH equation. Cholesterol, HDL, S 56 >=40 mg/dL 04/06/2024 9:26 AM CDT DTL Cholesterol, Non-HDL, Calculated 61 mg/dL 04/06/2024 9:26 AM CDT DTL Comment: ----REFERENCE VALUE---- Desirable: <130 mg/dL Above Desirable: 130-159 mg/dL Borderline High: 160-189 mg/dL High: 190-219 mg/dL Very High: > or =220 mg/dL Fasting (8 HR or more) Yes 04/06/2024 8:53 AM CDT DTL Blood (Blood, Venous) 04/06/2024 8:16 AM CDT 04/06/2024 8:53 AM CDT Suraj Pelaez M.D. LAB BLOOD ADD-ON [facility] [address] [place] [address], [facility] [address] [place] [address] * Thyroid Function [place] (04/06/2024 8:16 AM CDT) Pathologist [facility] TSH, Sensitive 3.5 0.3 - 4.2 mIU/L 04/06/2024 9:26 AM CDT DTL Blood (Blood, Venous) 04/06/2024 8:16 AM CDT 04/06/2024 8:53 AM CDT Suraj Pelaez M.D. LAB BLOOD ADD-ON Performing Organization Address City/[facility] Co de Phone Number [facility] [address] [place] [address], [facility] [address] [place] [address] * NT-Pro B-Type Natriuretic Peptide (BNP) (04/06/2024 8:16 AM CDT) Pathologist [facility] NT-Pro BNP 63 <=88 pg/mL 04/06/2024 9:26 AM CDT DTL Comment: NT-proBNP values less than 300 [...] absence of renal failure. Blood (Blood, Venous) 04/06/2024 8:16 AM CDT 04/06/2024 8:53 AM CDT Suraj Pelaez M.D. LAB BLOOD ADD-ON Performing Organization Address City/[facility]/ZIP Co de Phone Number [facility] [address] [place] [address], [facility] [address] [place] [address] * C-Reactive Protein, High Sensitivity (04/06/2024 8:16 AM CDT) C-Reactive Protein, High Sens, S 1.9 <2.0 mg/L 04/06/2024 9:26 AM CDT DTL Blood (Blood, Venous) 04/06/2024 8:16 AM CDT 04/06/2024 8:53 AM CDT Suraj Pelaez M.D. LAB BLOOD ADD-ON [facility] [address] [place] [address], [facility] [address] [place] [address] * ALT (Alanine Aminotransferase) (04/06/2024 8:16 AM CDT) Alanine Aminotransferase (ALT), S 28 7 - 55 U/L 04/06/2024 9:26 AM CDT DT Blood (Blood, Venous) 04/06/2024 8:16 AM CDT 04/06/2024 8:53 AM CDT Suraj Pelaez M.D. LAB BLOOD ADD-ON Performing Organization Address City/[facility]/ZIP Co de Phone Number [facility] [address] [place] [address], [facility] [address] [place] [address] * AST (Aspartate Aminotransferase) (04/06/2024 8:16 AM CDT) Aspartate Aminotransferase (AST), S 28 8 - 48 U/L 04/06/2024 9:26 AM CDT DT Blood (Blood, Venous) 04/06/2024 8:16 AM CDT 04/06/2024 8:53 AM CDT Suraj Pelaez M.D. LAB BLOOD ADD-ON [facility] [address], [place] [address] [place] [address] [address] [place] [address] * Sodium (04/06/2024 8:16 AM CDT) Sodium, S 140 135 - 145 mmol/L 04/06/2024 9:26 AM CDT DT Blood (Blood, Venous) 04/06/2024 8:16 AM CDT 04/06/2024 8:53 AM CDT Suraj Pelaez M.D. LAB BLOOD ADD-ON [facility] [address] [place], [place] [address] [address] [place] [address] * Potassium (04/06/2024 8:16 AM CDT) Potassium, S 4.6 3.6 - 5.2 mmol/L 04/06/2024 9:26 AM CDT DT Blood (Blood, Venous) 04/06/2024 8:16 AM CDT 04/06/2024 8:53 AM CDT Suraj Pelaez M.D. LAB BLOOD ADD-ON [facility] [address] [place] [address], [facility] [address] [place] [address] * Creatinine with Estimated GFR (04/06/2024 8:16 AM CDT) Creatinine 1.19 0.74 - 1.35 mg/dL 04/06/2024 9:26 AM CDT DT Estimated GFR (eGFR) 71 >=60 mL/min/BSA 04/06/2024 9:26 AM CDT DT Comment: Estimated GFR calculated using the 2020 CKD_EPI creatinine equation. Blood (Blood, Venous) 04/06/2024 8:16 AM CDT 04/06/2024 8:53 AM CDT Suraj Pelaez M.D. LAB BLOOD ADD-ON [facility] [address] [place] [address], [facility] DTL [facility] [address] [place] [address] * CBC with Differential, Blood (04/06/2024 8:15 AM CDT) Hemoglobin 15.6 13.2 - 16.6 g/dL 04/06/2024 9:05 AM CDT DTL Hematocrit 46.0 38.3 - 48.6 % 04/06/2024 9:05 AM CDT DTL Erythrocytes 5.39 4.35 - 5.65 x10(12)/L 04/06/2024 9:05 AM CDT DTL MCV 85.3 78.2 - 97.9 fL 04/06/2024 9:05 AM CDT DTL RBC Distrib Width 12.7 11.8 - 14.5 % 04/06/2024 9:05 AM CDT DTL Platelet Count 278 135 - 317 x10(9)/L 04/06/2024 9:05 AM CDT DTL Leukocytes 5.9 3.4 - 9.6 x10(9)/L 04/06/2024 9:05 AM CDT DTL Neutrophils 3.83 1.56 - 6.45 x10(9)/L 04/06/2024 9:05 AM CDT DHPM Lymphocytes 1.26 0.95 - 3.07 x10(9)/L 04/06/2024 9:05 AM CDT DTL Monocytes 0.52 0.26 - 0.81 x10(9)/L 04/06/2024 9:05 AM CDT DTL Eosinophils 0.27 0.03 - 0.48 x10(9)/L 04/06/2024 9:05 AM CDT DTL Basophils 0.04 0.01 - 0.08 x10(9)/L 04/06/2024 9:05 AM CDT DTL Blood (Blood, Venous) 04/06/2024 8:15 AM CDT 04/06/2024 8:41 AM CDT Suraj Pelaez M.D. LAB BLOOD ADD-ON [facility] [address] [place] [address], [facility] [address] [place] [address] [facility] [address] [place] [address] * Troponin T, 5th Generation (04/06/2024 8:15 AM CDT) Troponin T, 5th gen 8 <=15 ng/L 04/06/2024 9:17 AM CDT DTL Blood (Blood, Venous) 04/06/2024 8:15 AM CDT 04/06/2024 8:51 AM CDT Suraj Pelaez M.D. LAB BLOOD ADD-ON [facility] [address] [place] [address], [facility] [address] [place] [address] * Glucose, Fasting (04/06/2024 8:15 AM CDT) Glucose, P 91 70 - 100 mg/dL 04/06/2024 9:08 AM CDT DTL Last Intake 14 hr 04/06/2024 8:51 AM CDT DTL Blood (Blood, Venous) 04/06/2024 8:15 AM CDT 04/06/2024 8:51 AM CDT Suraj Pelaez M.D. LAB BLOOD NON ADD-ON [facility] [address] [place] [address], [facility] [address] [place] [address] from Last 3 Months Care Teams Car Worker Helper Relationship Specialty Start Date End Date Elsewhere, Pcp PCP - General Internal Medicine 04/02/24
--- OUTSIDE RECORDS SUMMARY | 2024-05-25 15:20 | XMS_ITS | Clinical Summary ---
Author Organization [employer] [facility] [employer] [facility] Address [place], [place] [address] Care Team Providers Care Boiler Inspector Name Role Phone Teja Huff MD Primary [...] Physio II Annuloplasty Ring 36 mm by Holaira. Model 5200, SN [id number], Exp 01/26/2027. Implanted [address] Tesfaye on [...] this topic Medical Devices Implanted Type Area Medical Technologist Prn Device Identifier Shelf Expiration Date Model / Serial / Lot Ring Mitral 36mm Physio Ii - [id number] Implanted:Qty: 1 on 04/20/2022 by Caden Tesfaye MD at [facility] N/A: Mitral Valve [employer] Darlene 01/26/2027 [id number] / / [id number] Procedures Procedure Name Priority Date/Time Associated Diagnosis Comments LIPID PANEL Early AM 12/15/2021 6:42 AM WINDOW REPAIRER from Last 3 Months or Most Recently Relevant to Health Maintenance Results * LIPID PANEL (12/15/2021 6:42 AM WINDOW REPAIRER) CHOLESTEROL,TOTAL 142 100 - 199 mg/dL 12/15/2021 7:51 AM WINDOW REPAIRER [facility] TRIGLYCERIDES 81 <150 mg/dL 12/15/2021 7:51 AM WINDOW REPAIRER [facility] HDL CHOLESTEROL 47 >40 mg/dL 7:51 AM WINDOW REPAIRER [facility] NON-HDL CHOLESTEROL 95 <145 mg/dl 12/15/2021 7:51 AM WINDOW REPAIRER [facility] CHOL/HDL RATIO 3.02 <4.50 12/15/2021 7:51 AM WINDOW REPAIRER [facility] LDL CHOLESTEROL 79 <=130 mg/dL 12/15/2021 7:51 AM WINDOW REPAIRER [facility] VLDL CHOLESTEROL 16 <=30 mg/dL 12/15/2021 7:51 AM [facility] PROVIDER ORDERED STATUS RANDOM 12/15/2021 7:51 AM [facility] Blood BLOOD SPECIMEN / Unknown Venipuncture / Unknown 12/15/2021 6:42 AM WINDOW REPAIRER 12/15/2021 7:30 AM WINDOW REPAIRER Hector Hickey NP [facility] [address] [place] [address], from Last 3 Months or Most Recently [...] Code Status Discussion: Reviewed Preferences Care Teams Boiler Inspector Relationship Specialty Start Date End Date Teja Huff MD [address] [place] [address] PCP - General Family Practice 04/20/21
--- OUTSIDE RECORDS SUMMARY | 2024-05-25 15:21 | XMS_ITS | Encounter Summary ---
Author Organization [facility] Address [address] [place] [address] Care Team Providers Care Supervisor Conditioning Yard Name Role Phone Elsewhere, Pcp Primary Care Provider Unavailabl e Encounter Details Date Type Department Care Team (Latest Contact Info) Description 04/06/2024 4:50 PM CDT - 04/06/2024 5:06 PM CDT Hospital Encounter Department of Laboratory Medicine and Pathology, [facility] in [place], [place] [address] [place] [address] Suraj Pelaez M.D. [address] [place] [address] Pain Epigastric Discharge Disposition: Home or Self Care Social [...] your living situation today? I have a [facility] place to live 09/01/2023 Sex and Gender Information Value Date Recorded Sex Assigned at Male 09/01/2023 8:44 AM CDT Gender Identity Male 09/01/2023 8:44 AM CDT Sexual Orientation Straight 09/01/2023 8: 44 AM CDT documented as of this encounter Medications at Time of Discharge Medication Sig Dispensed Refills Start Date End Date amitriptyline (ELAVIL) 10 mg tablet Take 1 tablet (10 mg total) by mouth at bedtime. 90 tablet 3 04/06/2024 04/06/2025 amoxicillin (AMOXIL) 500 mg capsule Take 2,000 mg by mouth. Prior to dental appointments 07/26/2022 arginine (L-ARGININE) 1,000 mg per tablet Take 1 tablet (1,000 mg total) by mouth 3 (three) times a day. 270 tablet 3 09/15/2023 09/14/[address] tablet Take 81 mg by mouth daily. 04/21/2022 atorvastatin (LIPITOR) 40 mg tablet TAKE 1 TABLET(40 MG) BY MOUTH DAILY 90 tablet 3 10/03/2023 DME CPAP DME Order loratadine (CLARITIN) 10 mg tablet Take 1 tablet by mouth daily. 05/18/2022 LORazepam (ATIVAN) 0.5 mg tablet Take 1 tablet by mouth at bedtime as needed for anxiety. 06/29/2023 melatonin 10 mg tablet Take 10 mg by mouth at bedtime. MULTIVITAMIN ORAL Take by mouth daily. sildenafiL (VIAGRA) 50 mg tablet Take 50 mg by mouth as needed. 07/31/2023 verapamiL (CALAN) 80 mg tablet Take 80 mg by mouth 2 (two) times a day. 10/02/2023 04/13/2024 documented as of this encounter Plan of Treatment Not on file documented as of this encounter Procedures Procedure Name Priority Date/Time Associated Diagnosis Comments CORTISOL, S Routine 04/06/2024 5:17 PM CDT Pain Epigastric documented in this encounter Results * Cortisol (04/06/2024 5:17 PM CDT) Cortisol PM Result 4.9 2.5 - 12 mcg/dL 04/06/2024 6:15 PM CDT DTL Blood (Blood, Venous) 04/06/2024 5:17 PM CDT 04/06/2024 5:50 PM CDT Suraj Pelaez M.D. LAB BLOOD ADD-ON [facility] [address] [place] [address], 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
--- OUTSIDE RECORDS SUMMARY | 2024-05-25 15:21 | XMS_ITS | Encounter Summary ---
Author Organization [facility] Address [address] [place] [address] Care Team Providers Care Film Archivist Name Role Phone Elsewhere, Pcp Primary Care Provider Unavailabl e Reason for Referral * Outpatient (Routine) - Closed Specialty Diagnoses / Procedures Referred By Contcintia t Referred To Contact Diagnoses Hypertension Essential Primary Endothelial Dysfunction Coronary Artery (HCC) Procedures DX Chest AP or PA and Lateral 2 Views Suraj Pelaez M.D. [address] [place] [phone] [facility] Referral ID Status Reason Start Date Expiration Date Visits Re quested Visits Authorized [id number] Closed 01/20/2024 01/19/2025 1 1 Encounter Details Date Type Department Care Team (Late st Contact Info) Description 01/20/2024 Orders Only Department of Cardiovascular Medicine in [place], [place] [address] [place] [address] [phone] Suraj Pelaez M.D. [address] [place] [address] [phone] Hypertension Essential Primary (Primary Dx); Endothelial Dysfunction [...] your living situation today? [facility] to live 09/01/2023 Sex and Gender Information Value Date Recorded Sex Assigned at Male 09/01/2023 8:44 AM CDT Gender Identity Male 09/01/2023 8:44 AM CDT Sexual Orientation Straight 09/01/2023 8: 44 AM CDT documented as of this encounter Plan of Treatment Not on file documented as of this encounter Results * DX Chest AP or PA and [...] M.D. IMG DIAGNOSTIC IMAGI NG PROCEDURES * C-Reactive Protein, High Sensitivity (04/06/2024 8:16 AM CDT) C-Reactive Protein, High Sens, S 1.9 <2.0 mg/L 04/06/2024 9:26 AM CDT DTL Blood (Blood, Venous) 04/06/2024 8:16 AM CDT 04/06/2024 8:53 AM CDT Suraj Pelaez M.D. LAB BLOOD ADD-ON [facility] [address] [place] [address] * Thyroid Function [place] (04/06/2024 8:16 AM CDT) Pathologist [facility] TSH, Sensitive 3.5 0.3 - 4.2 mIU/L 04/06/2024 9:26 AM CDT DTL Blood (Blood, Venous) 04/06/2024 8:16 AM CDT 04/06/2024 8:53 AM CDT Suraj Pelaez M.D. LAB BLOOD ADD-ON [facility] [address] [place] [address], [facility] 200 [place] [address] * Lipid Panel (04/06/2024 8:16 AM CDT) [...] CDT Suraj Pelaez M.D. LAB BLOOD ADD-ON [facility] 200 [place] [address], [facility] DTL [facility] 200 [place] [address] * ALT (Alanine Aminotransferase) (04/06/2024 8:16 AM CDT) Alanine Aminotransferase (ALT), S 28 7 - 55 U/L 04/06/2024 9:26 AM CDT DTL Blood (Blood, Venous) 04/06/2024 8:16 AM CDT 04/06/2024 8:53 AM CDT Suraj Pelaez M.D. LAB BLOOD ADD-ON [facility] 200 [place] [address], [facility] 200 [place] [address] * AST (Aspartate Aminotransferase) (04/06/2024 8:16 AM CDT) Aspartate Aminotransferase (AST), S 28 8 - 48 U/L 04/06/2024 9:26 AM CDT DT Blood (Blood, Venous) 04/06/2024 8:16 AM CDT 04/06/2024 8:53 AM CDT Suraj Pelaez M.D. LAB BLOOD ADD-ON [facility] 200 [place] [address], [facility] 200 [place] [address] * NT-Pro B-Type Natriuretic Peptide (BNP) (04/06/2024 8:16 AM CDT) NT-Pro BNP 63 <=88 pg/mL 04/06/2024 9:26 AM CDT DT Comment: NT-proBNP values less than 300 pg/mL [...] CDT Suraj Pelaez M.D. LAB BLOOD ADD-ON [facility] [address] [place], [place] [address] [place] [address] 200 [place] [address] * Creatinine with Estimated GFR (04/06/2024 8:16 AM CDT) Creatinine 1.19 0.74 - 1.35 mg/dL 04/06/2024 9:26 AM CDT DT Estimated GFR (eGFR) 71 >=60 mL/min/BSA 04/06/2024 9:26 AM CDT DT Comment: Estimated GFR calculated using the 2020 CKD_EPI creatinine equation. Blood (Blood, Venous) 04/06/2024 8:16 AM CDT 04/06/2024 8:53 AM CDT Suraj Pelaez M.D. LAB BLOOD ADD-ON Performing Organization Address [facility]/ZIP Co de Phone Number [facility] 200 [place], [place] [phone] [place] [address] 200 [place] [address] * Potassium (04/06/2024 8:16 AM CDT) Potassium, S 4.6 3.6 - 5.2 mmol/L 04/06/2024 9:26 AM CDT DTL Blood (Blood, Venous) 04/06/2024 8:16 AM CDT 04/06/2024 8:53 AM CDT Suraj Pelaez M.D. LAB BLOOD ADD-ON [facility] [address] [place] [address], [place] [facility] 200 [place] [address] * Sodium (04/06/2024 8:16 AM CDT) Pathologist [facility] Sodium, S 140 135 - 145 mmol/L 04/06/2024 9:26 AM CDT DTL Blood (Blood, Venous) 04/06/2024 8:16 AM CDT 04/06/2024 8:53 AM CDT Suraj Pelaez M.D. LAB BLOOD ADD-ON [facility] 200 [place] [address], [facility] 200 [place] [address] * CBC with Differential, Blood (04/06/2024 8:15 AM CDT) Pathologist [facility] Hemoglobin 15.6 13.2 - 16.6 g/dL 04/06/2024 [...] CDT Suraj Pelaez M.D. LAB BLOOD ADD-ON [facility] 200 [place] [address], [facility] 200 [place], [place] [phone] [place] [address] 200 [place] [address] * Troponin T, 5th Generation (04/06/2024 8:15 AM CDT) Troponin T, 5th gen 8 <=15 ng/L 04/06/2024 9:17 AM CDT DTL Blood (Blood, Venous) 04/06/2024 8:15 AM CDT 04/06/2024 8:51 AM CDT Suraj Pelaez M.D. LAB BLOOD ADD-ON Performing Organization Address City/[facility]/ZIP Co de Phone Number [facility] 200 [place] [address], [facility] 200 [place] [address] * Glucose, Fasting (04/06/2024 8:15 AM CDT) Glucose, P 91 70 - 100 mg/dL 04/06/2024 9:08 AM CDT DTL Last Intake 14 hr 04/06/2024 8:51 AM CDT DTL Blood (Blood, Venous) 04/06/2024 8:15 AM CDT 04/06/2024 8:51 AM CDT Surja Pelaez M.D. 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
--- OUTSIDE RECORDS SUMMARY | 2024-05-25 15:21 | XMS_ITS | Encounter Summary ---
Author Organization [facility] Address [address] [place] [address] Care Team Providers Care Judge Clerk Name Role Phone Elsewhere, Pcp Primary Care Provider Unavailabl e Encounter Details Date Type Department Care Team (Late st Contact Info) Description 05/08/[address] [facility] AND [facility] [address] [place] [address] Teja Huff M.D. [address] [place] [phone] Social History Tobacco Use Types Packs/Day Years [...] your living situation today? I have a [facility] place to live 09/01/2023 Sex and Gender [...] Total Score: 8 11/07/19 24 8:10 AM MAIL TELLER documented as of this encounter Care Teams Judge Clerk Relationship Specialty Start Date End Date Elsewhere, Pcp PCP - General Internal Medicine 04/02/24 documented as of this encounter
--- OUTSIDE RECORDS SUMMARY | 2024-05-25 15:21 | XMS_ITS | Referral Summary ---
Author Organization [place] Address [address] [place] [address] Care Team Providers Care Culvert Installer Name Role Phone Unavailable Primary Care Provider [...] Comments Blood Pressure 124/79 10/30/2019 2:28 PM JAVASCRIPT UI DEVELOPER Pulse 69 10/30/2019 2:28 PM JAVASCRIPT UI DEVELOPER Temperature 36.8 ??C (98.2 ??F) 06/17/2014 12:39 PM C DT Respiratory Rate - - Oxygen Saturation 97% 10/30/2019 2:28 PM JAVASCRIPT UI DEVELOPER Inhaled Oxygen Concentration - - Weight 78 kg (172 lb) 06/17/2014 12:39 PM CDT Height - - Body Mass Index - - Plan of Treatment Not on file
--- OUTSIDE RECORDS SUMMARY | 2024-05-25 15:21 | XMS_ITS | Referral Summary ---
Author Organization [facility] Address [address] [place] [address] Care Team Providers Care Auto Damage Estimator Name Role Phone Elsewhere, Pcp Primary Care Provider Unavailabl e Source Comments Patient records contain information from all sites at [facility]. For routine questions regarding patient records, call [phone] during business hours, M-F 8:00 AM - 5:00 PM Central Time. Record requests for emergency care only can be directed to [phone] at any time.[facility] Encounters Date Type Department Care Team Description 05/08/2024 [facility] AND [facility] [address] [place] [address] Teja Huff M.D. 04/16/2024 Clinical Communication Department of Cardiovascular Medicine in [place], [place] [address] [place] [phone] Suraj Pelaez M.D. Needs 24-hr urine container sent to him 04/13/2024 10:15 AM CDT Telemedicine Department of Cardiovascular Medicine in [place], [place] [address] [place] [phone] Suraj Pelaez M.D. Endothelial Dysfunction Coronary Artery (HCC) (Primary Dx) 04/12/2024 9:27 AM CDT - 04/12/2024 11:59 PM CDT Hospital Encounter Department of Radiology, [facility], in [place], [place] [address] [place] [address] Suraj Pelaez M.D. Pain Epigastric Discharge Disposition: Home or Self Care 04/06/2024 4:50 PM CDT - 04/06/2024 5:06 PM CDT Hospital Encounter Department of Laboratory Medicine and Pathology, [facility] in [place], [place] [address] [place] [phone] Suraj Pelaez M.D. Pain Epigastric Discharge Disposition: Home or Self Care 04/06/2024 5:07 PM CDT - 04/06/2024 11:59 PM CDT Hospital Encounter Department of Laboratory Medicine and Pathology, [facility] in [place], [place] [address] [place] [phone] Suraj Pelaez M.D. Pain Epigastric Discharge Disposition: Home or Self Care 04/06/2024 9:02 AM CDT - 04/06/2024 4:49 PM CDT Hospital Encounter Department of Radiology, [facility] in [place], [place] [address] [place] [phone] Suraj Pelaez M.D. Hypertension Essential Primary; Endothelial Dysfunction Coronary Artery (HCC) Discharge Disposition: Home or Self Care 04/06/2024 7:55 AM CDT - 04/06/2024 9:01 AM CDT Hospital Encounter Department of Laboratory Medicine and Pathology, [facility] in [place], [place] [address] [place] [phone] Suraj Pelaez M.D. Hypertension Essential Primary; Endothelial Dysfunction Coronary Artery (HCC) Discharge Disposition: Home or Self Care 04/06/2024 4:15 PM CDT Office Visit Department of Cardiovascular Medicine in [address] [phone] Suraj Pelaez M.D. 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 I have a [facility] place to live 09/01/2023 Sex and Gender [...] 04/06/2024 4:06 PM CDT Plan of Treatment Not on file Medical Devices Implanted Type Area Outbound Sales Agent Device Identifier Shelf Expiration Date Model / Serial / Lot Epicardial Wires Cardiac Other Heart Description:Epicardial wires , 1.5T, 3T conditional, Normal/Normal scan mode. Claudine Marina 11/08/22 Annuloplasty Ring-04/20/2022 Implanted:04/20 (Quantity not on file) Vascular Other Heart [employer] 36 MM FESTUS DUMONT PHYSIO II ANNULOPLASTY [...] These guidelines were developed by consensus of [facility] pancreatologists and radiologists. However, there is currently [...] the head of the pancreas (series 5 [id number]; series 6 image 113). Additional tiny 3 [...] These guidelines were developed by consensus of [facility]reatologists and radiologists. However, there is currently no [...] CDT Suraj Pelaez M.D. LAB BLOOD ADD-ON [facility] [address] [place] [address], [place] [facility] [place] [address] [place] [address] * DX Chest AP or PA and [...] MVR. Chest otherwise negative. Suraj Pelaez M.D. [facility] NG PROCEDURES * Lipid Panel [...] or more) Yes 04/06/2024 8:53 AM CDT DT Blood (Blood, Venous) 04/06/2024 8:16 AM CDT 04/06/2024 8:53 AM CDT Suraj Pelaez M.D. LAB BLOOD ADD-ON Performing Organization Address City/[facility]/[place] [address] * Thyroid Function Singer (04/06/2024 8:16 AM CDT) TSH, Sensitive 3.5 0.3 - 4.2 mIU/L 04/06/2024 9:26 AM CDT DT Blood (Blood, Venous) 04/06/2024 8:16 AM CDT 04/06/2024 8:53 AM CDT Suraj Pelaez M.D. LAB BLOOD ADD-ON Performing Organization Address City/[facility] Co de Phone Number [facility] 200 [place] [address] * NT-Pro B-Type Natriuretic Peptide (BNP) (04/06/2024 [...] M.D. LAB BLOOD ADD-ON Performing Organization Address City/[facility]/ZIP Co de Phone Number [facility] 200 [place] [address], [facility] 200 [place] [address] * C-Reactive Protein, High Sensitivity (04/06/2024 8:16 AM CDT) C-Reactive Protein, High Sens, S 1.9 <2.0 mg/L 04/06/2024 9:26 AM CDT DTL Blood (Blood, Venous) 04/06/2024 8:16 AM CDT 04/06/2024 8:53 AM CDT Suraj Pelaez M.D. LAB BLOOD ADD-ON Performing Organization Address City/[facility] Co de Phone Number [facility] 200 [place] [address], [facility] 200 [place] [address] * ALT (Alanine Aminotransferase) (04/06/2024 8:16 AM CDT) Alanine Aminotransferase (ALT), S 28 7 - 55 U/L 04/06/2024 9:26 AM CDT DTL Blood (Blood, Venous) 04/06/2024 8:16 AM CDT 04/06/2024 8:53 AM CDT Suraj Pelaez M.D. LAB BLOOD ADD-ON Performing Organization Address City/[facility]/ZIP Co de Phone Number [facility] 200 [place] [address], [facility] 200 [place] [address] * AST (Aspartate Aminotransferase) (04/06/2024 8:16 AM CDT) Aspartate Aminotransferase (AST), S 28 8 - 48 U/L 04/06/2024 9:26 AM CDT DTL Blood (Blood, Venous) 04/06/2024 8:16 AM CDT 04/06/2024 8:53 AM CDT Suraj Pelaez M.D. LAB BLOOD ADD-ON [facility] 200 [place], [place] [address] [place] [address] 200 [place] [address] * Sodium (04/06/2024 8:16 AM CDT) Sodium, S 140 135 - 145 mmol/L 04/06/2024 9:26 AM CDT DTL Blood (Blood, Venous) 04/06/2024 8:16 AM CDT 04/06/2024 8:53 AM CDT Suraj Pelaez M.D. LAB BLOOD ADD-ON Performing Organization Address City/[facility]/ZIP Co de Phone Number [facility] [address] [place] [address], [facility] 200 [place] [address] * Potassium (04/06/2024 8:16 AM CDT) Potassium, S 4.6 3.6 - 5.2 mmol/L 04/06/2024 9:26 AM CDT DTL Blood (Blood, Venous) 04/06/2024 8:16 AM CDT 04/06/2024 8:53 AM CDT Suraj Pelaez M.D. LAB BLOOD ADD-ON Performing Organization Address City/[facility]/ZIP Co de Phone Number [facility] 200 [place], [place] [phone] [place] [address] 200 [place] [address] * Creatinine with Estimated GFR (04/06/2024 8:16 AM CDT) Creatinine 1.19 0.74 - 1.35 mg/dL 04/06/2024 9:26 AM CDT DTL Estimated GFR (eGFR) 71 >=60 mL/min/BSA 04/06/2024 9:26 AM CDT DTL Comment: Estimated GFR calculated using the 2020 CKD_EPI creatinine equation. Blood (Blood, Venous) 04/06/2024 8:16 AM CDT 04/06/2024 8:53 AM CDT Suraj Pelaez M.D. LAB BLOOD ADD-ON [facility] [address] [place] [address], [facility] DTL [facility] [address] [place] [address] * CBC with Differential, Blood (04/06/2024 8:15 [...] M.D. LAB BLOOD ADD-ON Performing Organization Address City/[facility] Co de Phone Number [facility] 200 [place], [place] [phone] [place] [address] 200 [place], [place] [address] [place] [address] * Troponin T, 5th Generation (04/06/2024 8:15 AM CDT) Troponin T, 5th gen 8 <=15 ng/L 04/06/2024 9:17 AM CDT DTL Blood (Blood, Venous) 04/06/2024 8:15 AM CDT 04/06/2024 8:51 AM CDT Suraj Pelaez M.D. LAB BLOOD ADD-ON Performing Organization Address City/[facility]/ZIP Co de Phone Number [facility] 200 [place], [place] [address] 200 [place] [address] * Glucose, Fasting (04/06/2024 8:15 AM CDT) Glucose, P 91 70 - 100 mg/dL 04/06/2024 9:08 AM CDT DTL Last Intake 14 hr 04/06/2024 8:51 AM CDT DTL Blood (Blood, Venous) 04/06/2024 8:15 AM CDT 04/06/2024 8:51 AM CDT Suraj Pelaez M.D. LAB BLOOD NON ADD-ON [facility] [address] [place] [address], [place] DTL [facility] [address] [place] [address] from Last 3 Months Care Teams Auto Damage Estimator Relationship Specialty Start Date End Date Elsewhere, Pcp PCP - General Internal Medicine 04/02/24
--- OUTSIDE RECORDS SUMMARY | 2024-05-25 15:21 | XMS_ITS | Clinical Summary ---
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
--- OUTSIDE RECORDS SUMMARY | 2024-05-25 15:21 | XMS_ITS | Encounter Summary ---
Author Organization [facility] Address [address] [place] [address] Care Team Providers Care Auto Body Detailer Name Role Phone Elsewhere, Pcp Primary Care Provider Unavailabl e Encounter Details Date Type Department Care Team (Latest Contact Info) Description 04/06/2024 5:07 PM CDT - 04/06/2024 11:59 PM CDT Hospital Encounter Department of Laboratory Medicine and Pathology, [facility], in [place], [place] [address] [place] [address] Suraj Pelaez M.D. [address] [place] [address] Pain Epigastric Discharge Disposition: Home or Self [...] your living situation today? I have a [facility] place to live 09/01/2023 Sex [...] as of this encounter Visit Diagnoses Diagnosis Pain Epigastric documented in this encounter Additional Health Concerns Assessment Noted Time PHQ-9 Depression Total Score: 8 11/07/19 24 8:10 AM STATUE MAKER documented as of this encounter Care Teams Auto Body Detailer Relationship Specialty Start Date End Date Elsewhere, Pcp PCP - General Internal Medicine 04/02/24 documented as of this encounter
--- OUTSIDE RECORDS SUMMARY | 2024-05-25 15:21 | XMS_ITS | Encounter Summary ---
Author Organization [facility] Address [address] [place] [address] Care Team Providers Care Car Clerk Pullman Name Role Phone Elsewhere, Pcp Primary Care Provider Unavailabl e Reason for Visit * Appointment Request (Routine) - Pending Review Specialty Diagnoses / Procedures Referred By Contac t Referred To Contact Cardiovascular Disease Referral ID Status Reason Start Date Expiration Date V isits Requested Visits Authorized [id number] Pending Review 04/09/2024 04/09/2025 1 1 Encounter Details Date Type Department Care Team (Latest Contact Info) Description 04/13/2024 10:15 AM CDT Telemedicine Department of Cardiovascular Medicine in [place], [place] [address] [place] [address] Suraj Pelaez M.D. [address] [place] [address] Endothelial Dysfunction Coronary Artery (HCC) (Primary Dx) [...] your living situation today? I have a [facility] place to live 09/01/2023 Sex and Gender Information Value Date Recorded Sex Assigned at Male 09/01/2023 8:44 AM CDT Gender Identity Male 09/01/2023 8:44 AM CDT Sexual Orientation Straight 09/01/2023 8: 44 AM CDT documented as of this encounter Progress Notes * Suraj Pelaez M.D. - 04/13/2024 10:15 AM CDT ASSESSMENT / PLAN Video visit with Mr. Del Castillo to review test results. The cortisol measurements were normal and theCT imaging of the abdomen did not show signs of significant compression of the celiac artery. Incidentally noted were pancreatic cysts. I do not believe that the episode of chest discomfort that prompted his emergency room visit in [place] was related to acute pancreatic inflammation. Rather, I suspect this episode was just an exacerbation of his underlying coronary endothelial dysfunction. However, the findings of the pancreatic cysts now indicate that we will need to undertake regular surveillance of the pancreas with the an MR I/MR EECP in about two years. He has also noted an improvement in his migraine with increasing his dose of verapamil and I think it would be quite reasonable for us to increase his dose of verapamil to 240 mg taken as a single daily dose since this will have cardiac benefits as well. He wondered about the possibility of having nitroglycerin available if you would have significant chest discomfort in this certainly could be done but I reminded him that he could not use sildenafil on the day that he use his nitroglycerin advice versa. He understands the instructions. 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
--- OUTSIDE RECORDS SUMMARY | 2024-05-25 15:21 | XMS_ITS | Encounter Summary ---
Author Organization [facility] Address [address] [place] [address] Care Team Providers Care Cycle Specialist Name Role Phone Elsewhere, Pcp Primary Care Provider Unavailabl e Reason for Referral * MRI/CAT/PET Scan (Routine) - Closed Specialty Diagnoses / Procedures Referred By Celiaac t Referred To Contact Radiology Diagnoses Pain Epigastric Procedures CT Abdomen Angiogram with IV Contrast Suraj Pelaez M.D. [address] [place] [phone] [facility] Referral ID Status Reason Start Date Expiration Date Visits Re quested Visits Authorized [id number] Closed 04/06/2024 04/06/2025 1 1 Reason for Visit * MRI/CAT/PET Scan (Routine) - Closed Specialty Diagnoses / Procedures Referred By Jj aguilar Referred To Contact Radiology Diagnoses Pain Epigastric Procedures CT Abdomen Angiogram with IV Contrast Suraj Pelaez M.D. [address] [place] [phone] [facility] Referral ID Status Reason Start Date Expiration Date Visits Re quested Visits Authorized [id number] Closed 04/06/2024 04/06/2025 1 1 Encounter Details Date Type Department Care Team (Latest Contact Info) Description 04/12/2024 9:27 AM CDT - 04/12/2024 11:59 PM CDT Hospital Encounter Department of Radiology, [facility] in [place], [place] [address] [place] [phone] Suraj Pelaez M.D. [address] [place] [address] Pain Epigastric Discharge Disposition: Home or Self [...] your living situation today? I have a [facility] place to live 09/01/2023 Sex and [...] outpatients) 04/12/2024 10:20 AM CDT Pain Epigastric documented in this encounter Results * CT Abdomen Angiogram with IV [...] These guidelines were developed by consensus of [facility] pancreatologists and radiologists. However, there is currently [...] the head of the pancreas (series 5 [id number]; series 6 image 113). Additional tiny 3 [...] These guidelines were developed by consensus of [facility] and [facility]. However, there is currently [...] neoplasms. Please refer to theattached guidelines. Suraj BOYER CT PROCEDURES documented in this encounter Visit Diagnoses Diagnosis Pain Epigastric documented in this encounter Administered Medications Inactive Administered Medications - up to 3 most recent administrations Medication Order MAR Action Action Date Dose Rate Site iopromide 370 mg iodine/mL injection 1-162 mL (ULTRAVIST) 1-162 mL, intravenous, Once in imaging, contrast, Starting on Cristina 04/12/24 at 1010, For 1 dose, Imaging Protocol Orders, Dose per Radiant Medication Guidelines Given 04/12/2024 10:11 AM CDT 100 mL sodium chloride (PF) 0.9 % injection 1-100 mL 1-100 mL, intravenous, Once, On Cristina 04/12/24 at 1030, For 1 dose, Imaging Protocol Orders, Dose per Radiant Medication Guidelines Given 04/12/2024 10:11 AM CDT 50 mL documented in this encounter Additional Health Concerns Assessment Noted Time PHQ-9 Depression Total Score: 8 11/07/19 8:10 AM MAIL HANDLER SORTER documented as of this encounter Care Teams Cycle Specialist Relationship Specialty Start Date End Date Elsewhere, Pcp PCP - General Internal Medicine 04/02/24 documented as of this encounter
--- OUTSIDE RECORDS SUMMARY | 2024-05-25 15:21 | XMS_ITS | Encounter Summary ---
Author Organization [facility] Address [address] [place] [address] Care Team Providers Care Health Education Aide Name Role Phone Elsewhere, Pcp Primary Care Provider Unavailabl e Reason for Visit * Reason Onset Date Comments Needs 24-hr urine container sent to him 04/16/20 24 Encounter Details Date Type Department Care Team (Latest Contact Info) Description 04/16/2024 Clinical Communication Department of Cardiovascular Medicine in [place], [place] [address] [place] [phone] Suraj Pelaez M.D. [address] [place] [address] Needs 24-hr urine container sent to him Social History Tobacco Use Types Packs/Day Years [...] your living situation today? I have a [facility] place to live 09/01/2023 Sex and Gender Information Value Date Recorded Sex Assigned at Male 09/01/2023 8:44 AM CDT Gender Identity Male 09/01/2023 8:44 AM CDT Sexual Orientation Straight 09/01/2023 8: 44 AM CDT documented as of this encounter Miscellaneous Notes * Telephone Encounter - Rosetta Abarca R.N. - 04/16/2024 9:26 AM CDT Contacted urine kit collection team at [facility] confirmed that the order for the 24 hoururine collection was originally ordered for a clinic collect, but that the scheduling team should be able to edit the order for this to be a mailout. When scheduling the mailout, the maintenance team member stated that there should be a popup for a 1435 form to fill out-this would likely pop up as a question Has the 1435 form been filled out? In which the scheduling maintenance team member would need to select no inorder to trigger the form to fill out. If the form does not populate, supposedly this is accessiblein the Forms section. The order needs to be scheduled as a mailout and the 1435 form needs to be filled out in order for this to go through. documented in this encounter Plan of Treatment Not on file documented as of this encounter Visit Diagnoses Not on filedocumented in this encounter Additional Health Concerns Assessment Noted Time PHQ-9 Depression Total Score: 8 11/07/19 24 8:10 AM BOATBUILDER APPRENTICE WOOD documented as of this encounter Care Teams Health Education Aide Relationship Specialty Start Date End Date Elsewhere, Pcp PCP - General Internal Medicine 04/02/24 documented as of this encounter
--- OUTSIDE RECORDS SUMMARY | 2024-05-25 15:21 | XMS_ITS | Encounter Summary ---
Author Organization [facility] Address [address] [place] [address] Care Team Providers Care Curb Machine Operator Name Role Phone Elsewhere, Pcp Primary Care Provider Unavailabl e Encounter Details Date Type Department Care Team (Latest Contact Info) Description 04/06/2024 7:55 AM CDT - 04/06/2024 9:01 AM CDT Hospital Encounter Department of Laboratory Medicine and Pathology, [facility], in [place], [place] [address] [place] [address] Suraj Pelaez M.D. [address] [place] [address] Hypertension Essential Primary; Endothelial Dysfunction Coronary Artery (HCC) Discharge Disposition: Home or Self Care Social [...] your living situation today? I have a [facility] place to live 09/01/2023 Sex and [...] Associated Diagnosis Comments LIPID PANEL, S Routine 04/06/2024 8:16 AM [...] Artery (HCC) CBC WITH DIFFERENTIAL, B Routine 024 8:15 AM CDT Hypertension Essential Primary Endothelial Dysfunction Coronary Artery (HCC) TROPONIN T, 5TH GEN, P Routine 8:15 AM CDT Hypertension Essential Primary Endothelial Dysfunction Coronary Artery (HCC) GLUCOSE, FASTING, S/P Routine 04/06/2024 8:15 AM CDT Hypertension Essential Primary Endothelial Dysfunction Coronary Artery (HCC) documented in this encounter Results * C-Reactive Protein, High Sensitivity (04/06/2024 8:16 AM CDT) C-Reactive Protein, High Sens, S 1.9 <2.0 mg/L 04/06/2024 9:26 AM CDT DTL Blood (Blood, Venous) 04/06/2024 8:16 AM CDT 04/06/2024 8:53 AM CDT Suraj Pelaez M.D. LAB BLOOD ADD-ON Performing Organization Address City/[facility]/ZIP Co de Phone Number [facility] [address] [place] [address], [facility] 200 [place] [address] * Thyroid Function [place] (04/06/2024 8:16 AM CDT) Pathologist [facility] TSH, Sensitive 3.5 0.3 - 4.2 mIU/L 04/06/2024 9:26 AM CDT DTL Blood (Blood, Venous) 04/06/2024 8:16 AM CDT 04/06/2024 8:53 AM CDT Suraj Pelaez M.D. LAB BLOOD ADD-ON [facility] [address] [place] [address], [facility] [address] [place] [id number] * Lipid Panel (04/06/2024 8:16 AM CDT) [...] 8:16 AM CDT 04/06/2024 8:53 AM CDT uSraj Pelaez M.D. LAB BLOOD ADD-ON [facility] [address] [place] [address], [place] DTL [facility] [address] [place] [address] * ALT (Alanine Aminotransferase) (04/06/2024 8:16 AM CDT) Alanine Aminotransferase (ALT), S 28 7 - 55 U/L 04/06/2024 9:26 AM CDT DT Blood (Blood, Venous) 04/06/2024 8:16 AM CDT 04/06/2024 8:53 AM CDT Suraj Pelaez M.D. LAB BLOOD ADD-ON Performing Organization Address City/[facility]/ZIP Co de Phone Number [facility] [address] [place] [address], [facility] [address] [place] [address] * AST (Aspartate Aminotransferase) (04/06/2024 8:16 AM CDT) Aspartate Aminotransferase (AST), S 28 8 - 48 U/L 04/06/2024 9:26 AM CDT DT Blood (Blood, Venous) 04/06/2024 8:16 AM CDT 04/06/2024 8:53 AM CDT Suraj Pelaez M.D. LAB BLOOD ADD-ON Performing Organization Address City/[facility] Co de Phone Number [facility] [address] [place] [address], [facility] [address] [place] [address] * NT-Pro B-Type Natriuretic Peptide (BNP) (04/06/2024 8:16 AM CDT) Pathologist [facility] NT-Pro BNP 63 <=88 pg/mL 04/06/2024 9:26 [...] CDT Suraj Pelaez M.D. LAB BLOOD ADD-ON [facility] [address] [place] [address], [facility] [address] [place] [address] * Creatinine with Estimated GFR (04/06/2024 8:16 AM CDT) Creatinine 1.19 0.74 - 1.35 mg/dL 04/06/2024 9:26 AM CDT DTL Estimated GFR (eGFR) 71 >=60 mL/min/BSA 04/06/2024 9:26 AM CDT DT Comment: Estimated GFR calculated using the 2020 CKD_EPI creatinine equation. Blood (Blood, Venous) 04/06/2024 8:16 AM CDT 04/06/2024 8:53 AM CDT Suraj Pelaez M.D. LAB BLOOD ADD-ON Performing Organization Address City/[facility]/ZIP Co de Phone Number [facility] [address] [place] [address], [facility] [address] [place] [address] * Potassium (04/06/2024 8:16 AM CDT) Potassium, S 4.6 3.6 - 5.2 mmol/L 04/06/2024 9:26 AM CDT DTL Blood (Blood, Venous) 04/06/2024 8:16 AM CDT 04/06/2024 8:53 AM CDT Suraj Pelaez M.D. LAB BLOOD ADD-ON [facility] [address] [place] [address], [facility] [address] [place] [address] * Sodium (04/06/2024 8:16 AM CDT) Sodium, S 140 135 - 145 mmol/L 04/06/2024 9:26 AM CDT DTL Blood (Blood, Venous) 04/06/2024 8:16 AM CDT 04/06/2024 8:53 AM CDT Suraj Pelaez M.D. LAB BLOOD ADD-ON [facility] [address] [place] [address], [facility] DTL [facility] [address] [place] [address] * CBC with Differential, Blood (04/06/2024 8:15 AM CDT) Pathologist [facility] Hemoglobin 15.6 13.2 - 16.6 g/dL 04/06/2024 [...] M.D. LAB BLOOD ADD-ON Performing Organization Address City/[facility] Co de Phone Number [facility] [address] [place] [address], [facility] 200 [place] [address] * Troponin T, 5th Generation (04/06/2024 8:15 AM CDT) Troponin T, 5th gen 8 <=15 ng/L 04/06/2024 9:17 AM CDT DTL Blood (Blood, Venous) 04/06/2024 8:15 AM CDT 04/06/2024 8:51 AM CDT Suraj Pelaez M.D. LAB BLOOD ADD-ON Performing Organization Address City/[facility] Co de Phone Number [facility] [address] [place], [place] [address] [address] [place] [address] * Glucose, Fasting (04/06/2024 8:15 AM CDT) Glucose, P 91 70 - 100 mg/dL 04/06/2024 9:08 AM CDT DTL Last Intake 14 hr 04/06/2024 8:51 AM CDT DTL Blood (Blood, Venous) 04/06/2024 8:15 AM CDT 04/06/2024 8:51 AM CDT Suraj Pelaez M.D. LAB BLOOD NON ADD-ON [facility] [address] [place] [address], [place] DTL [facility] [address] [place] [address] documented in this encounter Visit Diagnoses Diagnosis Hypertension Essential Primary Endothelial Dysfunction Coronary Artery (HCC) documented in this encounter Additional Health Concerns Assessment Noted Time PHQ-9 Depression Total Score: 8 11/07/19 24 8:10 AM GOLF CADDY documented as of this encounter Care Teams Curb Machine Operator Relationship Specialty Start Date End Date Elsewhere, Pcp PCP - General Internal Medicine 04/02/24 documented as of this encounter
--- OUTSIDE RECORDS SUMMARY | 2024-05-25 15:21 | XMS_ITS | Encounter Summary ---
Author Organization [facility] Address [address] [place] [address] Care Team Providers Care Property Officer Name Role Phone Elsewhere, Pcp Primary Care Provider Unavailabl e Reason for Visit * Reason Onset Date Comments Pre-visit Testing Orders 01/19/2024 Encounter Details Date Type Department Care Team (Latest Contact Info) Description 01/19/2024 Clinical Communication Department of Cardiovascular Medicine in [place], [place] [address] [place] [address] Suraj Pelaez M.D. [address] [place] [address] Pre-visit Testing Orders Social History Tobacco Use [...] your living situation today? I have a [facility] place to live 09/01/2023 Sex and [...] Total Score: 8 11/07/19 24 8:10 AM CHARGE ACCOUNT AUTHORIZER documented as of this encounter Care Teams Property Officer Relationship Specialty Start Date End Date Elsewhere, Pcp PCP - General Internal Medicine 11/07/23 04/01/24 documented as of this encounter
--- OUTSIDE RECORDS SUMMARY | 2024-05-25 15:21 | XMS_ITS | Encounter Summary ---
Author Organization [facility] Address [address] [place] [phone] Care Team Providers Care Cook Room Supervisor Name Role Phone Elsewhere, Pcp Primary Care Provider Unavailabl e Reason for Referral * MRI/CAT/PET Scan (Routine) - Closed Specialty Diagnoses / Procedures Referred By Contac t Referred To Contact Radiology Diagnoses Pain Epigastric Procedures CT Abdomen Angiogram with IV Contrast Suraj Pelaez M.D. [address] [place] [phone] [facility] Referral ID Status Reason Start Date Expiration Date Visits Re quested Visits Authorized [id number] Closed 04/06/2024 04/06/2025 1 1 Reason for Visit * Outpatient (Routine) - Closed Specialty Diagnoses / Procedures Referred By Contac t Referred To Contact Cardiovascular Disease Reilly Escobar M.D. [address] [place] [phone] [facility] Referral ID Status Reason Start Date Expiration Date Visits Re quested Visits Authorized [id number] Closed 10/03/2023 10/02/2026 1 1 Encounter Details Date Type Department Care Team (Latest Contact Info) Description 04/06/2024 4:15 PM CDT Office Visit Department of Cardiovascular Medicine in [place], [place] [address] [place] [phone] Suraj Pelaez M.D. [address] [place] [phone] Pain Epigastric (Primary Dx); Pain Pleuritic Chest Social History Tobacco Use Types Packs/Day Years [...] situation today? I have a [facility] place to live 09/01/2023 Sex and [...] Mass Index 24.96 04/06/2024 4:06 PM CDT documented in this encounter H&P Notes * Suraj Pelaez M.D. - 04/06/2024 4:15 PM CDT REFERRAL SOURCE Self CHIEF COMPLAINT / REASON FOR VISIT Chest pain and midepigastric pain HISTORY OF PRESENT ILLNESS Mr. Del Castillo experienced sudden onset of quite severe chest discomfort radiating upward toward the esophagus with a sense of nausea that he is associated with possible heart attack and so he sought attention at the emergency room in [place]. Troponin was normal. D-dimer was just slightly elevated and there were no other acute blood test abnormalities. He was dismissed from the emergency room and advised to have further evaluation. 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 He describes intermittent episodes of chest discomfort that have an ischemic nature and which we have thought would represent small-vessel dysfunction or coronary microvascular dysfunction. He notes that these symptoms have improved somewhat since starting on L arginine and verapamil. He is limited in his L arginine dose by diarrhea that occurs if he gets to a dose of 3 g a day. The combination of L arginine verapamil has improved his migraine headache significantly. He has a second kind of a discomfort involving the chest that is sudden in onset and reaches maximum intensity quickly and where she describes as more of a sharp discomfort. He also describes more ofa midepigastric discomfort that occurs especially after eating and is fairly quickly evident after eating. He does not describe a symptom of heartburn or dysphagia and he does not describe pain with swallowing. He otherwise describes a bothersome fatigue that occurred several hours after he has been up. He uses CPAP at nighttime and notes no difficulty with this apparatus. His has not reporting that his sleep substantially disturbed. The following portions of the patient's history were reviewed and updated as appropriate: allergies, current medications, family history, medical history, social history, surgical history, psychiatric history, substance abuse history, problem list, labs, diagnostics tests.. I also reviewed pertinent clinical notes in the electronic health record. REVIEW OF SYSTEMS A comprehensive review of systems was completed; pertinent abnormalities are included in the History of Present Illness. MEDICATIONS Current Medications: amitriptyline (ELAVIL) 10 mg tablet, Take 1 tablet (10 mg total) by mouth at bedtime. amoxicillin (AMOXIL) 500 mg capsule, Take 2,000 mg by mouth. Prior to dental appointments arginine (L-ARGININE) 1,000 mg per tablet, Take 1 tablet (1,000 mg total) by mouth 3 (three) times a day. (Patient taking differently: Take 1,000 mg by mouth 3 (three) times a day. Twice daily) aspirin [address] tablet, Take 81 mg by mouth daily. atorvastatin (LIPITOR) 40 mg tablet, TAKE 1 TABLET(40 MG) BY MOUTH DAILY DME CPAP, DME Order loratadine (CLARITIN) 10 mg tablet, Take 1 tablet by mouth daily. LORazepam (ATIVAN) 0.5 mg tablet, Take 1 tablet by mouth at bedtime as needed for anxiety. melatonin 10 mg tablet, Take 10 mg by mouth at bedtime. MULTIVITAMIN ORAL, Take by mouth daily. sildenafiL (VIAGRA) 50 mg tablet, Take 50 mg by mouth as needed. verapamiL (CALAN) 80 mg tablet, Take 80 mg by mouth 2 (two) times a day. Akash Del Castillo had no medications administered during this visit. Current Outpatient Medications Medication Sig Dispense Refill amitriptyline (ELAVIL) 10 mg tablet Take 1 tablet (10 mg total) by mouth at bedtime. 90 tablet 3 amoxicillin (AMOXIL) 500 mg capsule Take 2,000 mg by mouth. Prior to dental appointments arginine (L-ARGININE) 1,000 mg per tablet Take 1 tablet (1,000 mg total) by mouth 3 (three) times aday. (Patient taking differently: Take 1,000 mg by mouth 3 (three) times a day. Twice daily) 270 tablet [address] tablet Take 81 mg by mouth daily. atorvastatin (LIPITOR) 40 mg tablet TAKE 1 TABLET(40 MG) BY MOUTH DAILY 90 tablet 3 DME CPAP DME Order loratadine (CLARITIN) 10 mg tablet Take 1 tablet by mouth daily. LORazepam (ATIVAN) 0.5 mg tablet Take 1 tablet by mouth at bedtime as needed for anxiety. melatonin 10 mg tablet Take 10 mg by mouth at bedtime. MULTIVITAMIN ORAL Take by mouth daily. sildenafiL (VIAGRA) 50 mg tablet Take 50 mg by mouth as needed. verapamiL (CALAN) 80 mg tablet Take 80 mg by mouth 2 (two) times a day. VITALS Blood Pressure: 134/73 Height: 181.7 cm Weight: 82.4 kg BMI (Calculated): 25 kg/m?? DIAGNOSTIC REVIEW All labs and diagnostic studies were reviewed. As noted, the blood tests from the emergency room visit in [place] showed normal troponin and a very slight abnormality of D-dimer that is probably not significant. Our blood studies are unremarkable. Our chest x-ray shows a healed median sternotomywith a mitral annuloplasty ring in place. ASSESSMENT / PLAN #1 Pain Epigastric #2 Pain Pleuritic Chest The sharp and sudden maximum intensity discomfort in the chest is chest wall in origin. 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 Other possibilities might be carcinoid since he does describe some associated postprandial flushing. I will obtain some additional studies, including five HIAA determination and a CT angiogram of the abdominal aorta with dynamic views to exclude the possibility of weaning arcuate ligament compression. For evaluation of the fatigue, we will arrange for adrenal studies. I do not think that he is having significant difficulty with sleep apnea. However, persistent discomfort through the day may also contribute to some of his symptoms. I have also recommended that he use amitriptyline at bedtime to see if this might help us some of the symptoms that could represent more of a central sensitization syndrome. 45 minutes total time Suraj Pelaez M.D. 04/06/2024 documented in this encounter Plan of Treatment Not on file documented as of this encounter Procedures Procedure Name Priority Date/Time Associated Diagnosis Comments CORTISOL, S Routine 04/06/2024 8:14 AM CDT Pain Epigastric documented in this [...] These guidelines were developed by consensus of [facility] pancreatologists and radiologists. However, there is currently [...] the head of the pancreas (series 5 [id number]; series 6 image 113). Additional tiny 3 [...] These guidelines were developed by consensus of [facility] and [facility]. However, there is currently no [...] PROCEDURES * Cortisol (04/06/2024 5:17 PM CDT) Cortisol PM Result 4.9 2.5 - 12 mcg/dL 04/06/2024 6:15 PM CDT DTL Blood (Blood, Venous) 04/06/2024 5:17 PM CDT 04/06/2024 5:50 PM CDT Suraj Pelaez M.D. LAB BLOOD ADD-ON [facility] [address] [place] [address], [facility] [address] [place] [address] * Cortisol (04/06/2024 8:14 AM CDT) Cortisol AM Result 13 4.8 - 20 mcg/dL 04/06/2024 5:43 PM CDT DTL Blood (Blood, Venous) 04/06/2024 8:14 AM CDT 04/06/2024 5:04 PM CDT Suraj Pelaez M.D. LAB BLOOD ADD-ON [facility] [address] [place] [address], [facility] [address] [place] [address] documented in this encounter Visit Diagnoses Diagnosis Pain Epigastric- Primary Pain Pleuritic Chest Pain Epigastric documented in this encounter Additional Health Concerns Assessment Noted Time PHQ-9 Depression Total Score: 8 11/07/19 24 8:10 AM COMMERCIAL INSULATOR documented as of this encounter Care Teams Cook Room Supervisor Relationship Specialty Start Date End Date Elsewhere, Pcp PCP - General Internal Medicine 04/02/24 documented as of this encounter
--- OUTSIDE RECORDS SUMMARY | 2024-05-25 15:21 | XMS_ITS ---
Author Organization [facility] Address [address] [place] [address] Care Team Providers Care Shook Machine Operator Name Role Phone Unavailable Unavailable Unavailable Surgery Details Not on file Complications Check Surgery Details section. Procedure Estimated Blood Loss Check Surgery Details section. Procedure Findings Check Surgery Details section. Procedure Specimens Taken Check Surgery Details section.
--- OUTSIDE RECORDS SUMMARY | 2024-05-25 15:21 | XMS_ITS | Encounter Summary ---
Author Organization [facility] Address [address] [place] [address] Care Team Providers Care Chemical Plant Operator Supervisor Name Role Phone Elsewhere, Pcp Primary Care Provider Unavailabl e Reason for Visit * Reason Onset Date Comments Pre-visit Intake 04/02/2024 Encounter Details Date Type Department Care Team (Latest Contact Info) Description 04/02/2024 9:30 AM CDT Clinical Communication Virtual Review in [place], [place] [address] [place] [phone] Pre-visit Intake Social History Tobacco Use Types [...] your living situation today? I have a [facility] place to live 09/01/2023 Sex and [...] Total Score: 8 11/07/19 24 8:10 AM MANAGER SOUND documented as of this encounter Care Teams Chemical Plant Operator Supervisor Relationship Specialty Start Date End Date Elsewhere, Pcp PCP - General Internal Medicine 04/02/24 documented as of this encounter
--- OUTSIDE RECORDS SUMMARY | 2024-05-25 15:21 | XMS_ITS | Encounter Summary ---
Author Organization [facility] Address [address] [place] [address] Care Team Providers Care Extrusion Die Repairer Name Role Phone Elsewhere, Pcp Primary Care Provider Unavailabl e Reason for Referral * Outpatient (Routine) - Closed Specialty Diagnoses / Procedures Referred By Jj t Referred To Contact Diagnoses Hypertension Essential Primary Endothelial Dysfunction Coronary Artery (HCC) Procedures DX Chest AP or PA and Lateral 2 Views Suraj Pelaez M.D. 200 [place] [phone] [facility] Referral ID Status Reason Start Date Expiration Date Visits Re quested Visits Authorized [id number] Closed 01/20/2024 01/19/2025 1 1 Reason for Visit * Outpatient (Routine) - Closed Specialty Diagnoses / Procedures Referred By Jj aguilar Referred To Contact Diagnoses Hypertension Essential Primary Endothelial Dysfunction Coronary Artery (HCC) Procedures DX Chest AP or PA and Lateral 2 Views Suraj Pelaez M.D. 200 [place] [phone] [facility] Referral ID Status Reason Start Date Expiration Date Visits Re quested Visits Authorized [id number] Closed 01/20/2024 01/19/2025 1 1 Encounter Details Date Type Department Care Team (Latest Contact Info) Description 04/06/2024 9:02 AM CDT - 04/06/2024 4:49 PM CDT Hospital Encounter Department of Radiology, [facility], in [place], [place] [address] [place] [phone] Suraj Pelaez M.D. [address] [place] [phone] Hypertension Essential Primary; Endothelial Dysfunction Coronary Artery [...] your living situation today? I have a [facility] place to live 09/01/2023 Sex and [...] Procedure Name Priority Date/Time Associated Diagnosis Comments DX CHEST AP OR PA AND LATERAL 2 VIEWS RAD - Routine (most inpatients and all outpatients) 04/06/2024 9:10 AM CDT Hypertension Essential Primary Endothelial Dysfunction Coronary Artery (HCC) documented in this encounter Results * DX Chest AP [...] Sternotomy with MVR. Chest otherwise negative. Suraj BOYER DIAGNOSTIC IMAGI NG PROCEDURES documented in this encounter Visit Diagnoses Diagnosis Hypertension Essential Primary Endothelial Dysfunction Coronary Artery (HCC) documented in this encounter Additional Health Concerns Assessment Noted Time PHQ-9 Depression Total Score: 8 11/07/19 24 8:10 AM SOCIAL MEDIA DIRECTOR documented as of this encounter Care Teams Extrusion Die Repairer Relationship Specialty Start Date End Date Elsewhere, Pcp PCP - General Internal Medicine 04/02/24 documented as of this encounter
--- NOTE | 2024-05-25 15:30 | CRLHL7_ITS ---
For Patients: As a result of the Century Cures Act, medical imaging exams and procedure reports are released immediately into your electronic medical record. You may view this report before your referring provider. If you have questions, please contact your health care provider. INDICATION: Pancreatic cyst. COMPARISON: CT angio of the abdomen dated 12 April 2024. TECHNIQUE: Abdominal MRI with T1 in- and out of phase, T2, diffusion weighted, and progressively delayed post-contrast images. Intravenous gadolinium administered. FINDINGS: No fatty infiltration of the liver. No focal abnormalities identified in the visualized portions of the liver, spleen, adrenal glands, and kidneys. No hydronephrosis. No adenopathy. 5 mm cyst in the posterior aspect of the head of the pancreas. The pancreas is otherwise unremarkable. No bile duct dilation. Normal size of the main pancreatic duct. Impression : 1. 5 mm cyst in the head of the pancreas. Recommend abdominal MRI in 1 year for documentation of stability. Management of Incidental Pancreatic Cysts: A White Paper of the ACR Incidental Findings Committee. Journal of the [employer]. Volume 14, Number 7, April 2017, pages 911-928. Dictated by Danish Willis MD @ 05/27/2024 4:58:05 PM (Electronically Signed)
== END 2024-05-25 15:19 | disposition home or self-care (01) ==
LOC: MRI 15:19
PROVIDERS: PCP Family Medicine; Visit Provider Family Medicine
DX: K86.2 Cyst of pancreas (principal)
CPT/HCPCS: 74183; A9575

== ENCOUNTER 2024-10-29 13:41 | Emergency (ER) | payer BC, SELFPAY ==
[2024-10-29 14:10] VITALS: BP 137/77; PULSE 69; RESP 16; TEMP 36.7; O2SAT 97; BMI 25.7
--- NOTE | 2024-10-29 15:09 | ED_ITS ---
HPI - Chest Pain General Chief Complaint: Chest Pain Stated Complaint: chest pain, dizziness yesterday Time Seen by Provider: 10/29/24 14:31 History of Present Illness HPI narrative: This 58-year-old male comes in reporting chest pain that began last evening. He states that the pain started when he was working on removing lighting from a tree outdoors. He had his arms up in the air but was not doing much other activity at the time. He did report some lightheadedness and felt some shortness of breath but did not have nausea, vomiting, or diaphoresis. He does report a heart history with some leaky valves and endothelial dysfunction of his coronary arteries. He has been to [place] and had workup regarding his heart. He did have an angiogram but there was no sign of blockage and no need for any stents placed. Since then he states that he has been doing better over the past year and a half and is able to ambulate on a treadmill for a half an hour without any symptoms. Last night he had chest pain that he rated 10/10 when he was working up above his head. He went into relax and the chest pain dissipated after about 30 minutes. He did not take nitroglycerin. He states that he has some very light discomfort at this time which he rates that 1/10 in severity. He arrives here with normal vital signs. Related Data Home Medications ?Medication ?Instructions ?Recorded ?Confirmed aspirin 81 mg tablet,delayed 81 mg PO DAILY 08/04/22 05/07/24 release multivitamin 1 tab PO QDAY 08/04/22 05/07/24 fluticasone propionate 50 2 spray intranasal DAILY PRN 10/08/22 05/07/24 mcg/actuation nasal spray,suspension atorvastatin 40 mg tablet 40 mg PO DAILY 11/22/23 05/07/24 arginine HCl (L-arginine) 1,000 mg 2,000 mg PO QDAY 11/23/23 05/07/24 tablet loratadine 10 mg tablet 10 mg PO QDAY 11/23/23 05/07/24 melatonin 10 mg tablet 10 mg PO HS 11/23/23 05/07/24 nitroglycerin 0.4 mg sublingual 0.4 mg sublingual 05/02/24 05/02/24 tablet verapamil 240 mg tablet,extended 240 mg PO DAILY 05/02/24 05/02/24 release Previous Rx's ?Medication ?Instructions ?Recorded lorazepam 0.5 mg tablet (Ativan) 0.5 mg PO QDAY PRN anxiety #30 tabs 06/29/23 amoxicillin 500 mg capsule 2,000 mg (4 x 500 mg) PO Q12H #12 11/14/23 caps sildenafil 50 mg tablet 50 mg PO DIRECTED #18 tabs 09/17/24 Allergies Allergy/AdvReac Type Severity Reaction Status Date / Time Penicillins Allergy Mild Unknown Verified 05/07/24 16:20 Review of Systems Status of ROS Reports: 10 or more systems reviewed and unremarkable except as noted in History and below Narrative Constitutional: No fevers, no weight gain or loss. Eyes: No discharge. No vision changes. HENT: No congestion, no sore throat, no ear pain. Cardiovascular: No palpitations. Chest pain as described above. Respiratory: No shortness of breath, no wheezes, no cough. Gastrointestinal: No abdominal pain, no vomiting, no diarrhea. Genitourinary: No dysuria, no hematuria. Musculoskeletal: Normal range of motion. Skin: No rashes, no pruritis. Neurological: No dizziness, weakness, sensory change, speech change. Endo/Heme/Allergies: No bruising or bleeding. No polydipsia. Pysch: no suicidality, no anxiety, no insomnia. All other systems reviewed and are negative. [facility] Medical History (Updated 10/29/24 @ 16:49 by Timothy Hubbard MD) Migraine ?G43.909 - Migraine, unspecified, not intractable, without status migrainosus (ICD-10) JOO (obstructive sleep apnea) ?G47.33 - Obstructive sleep apnea (adult) (pediatric) (ICD-10) Situational anxiety ?F41.8 - Other specified anxiety disorders (ICD-10) Meniere's disease ?H81.09 - Meniere's disease, unspecified ear (ICD-10) Irritable bowel syndrome ?K58.9 - Irritable bowel syndrome without diarrhea (ICD-10) Gilbert's syndrome ?E80.4 - Gilbert syndrome (ICD-10) Gastroesophageal reflux disease ?K21.9 - Gastro-esophageal reflux disease without esophagitis (ICD-10) Erectile dysfunction ?N52.9 - Male erectile dysfunction, unspecified (ICD-10) Benign familial tremor ?G25.0 - Essential tremor (ICD-10) Surgical History History of nevus excision (06/16/21) ?Z98.890 - Other specified postprocedural states (ICD-10) ?Z87.2 - Personal history of diseases of the skin and subcutaneous tissue (ICD-10) Hx of mitral valve repair (04/20/22) ?Z98.890 - Other specified postprocedural states (ICD-10) Status post nasal septoplasty (12/23/17) ?Z98.890 - Other specified postprocedural states (ICD-10) History of vasectomy ?Z98.52 - Vasectomy status (ICD-10) History of tonsillectomy ?Z90.89 - Acquired absence of other organs (ICD-10) History of esophagogastroduodenoscopy (EGD) (06/08/13) ?Z98.890 - Other specified postprocedural states (ICD-10) History of colonoscopy (04/02/14) ?Z98.890 - Other specified postprocedural states (ICD-10) History of bunionectomy of right great toe (2010) ?Z98.890 - Other specified postprocedural states (ICD-10) Family History Father Heart disease Hyperlipidemia Parkinson's disease Mother Hyperlipidemia Paternal Grandfather Parkinson's disease Social History Narrative: single, 1 son, non-smoker, social EtOH, Evrent for [place] Smoking Status: Never smoker Exam Narrative Exam Narrative: Constitutional: Well-developed, well-nourished, no acute distress. HEENT: Normocephalic, atraumatic. Neck: Normal range of motion. Nontender. Supple. Heart: Regular. No murmurs. Normal rate. Intact distal pulses. Lungs: Clear to auscultation. No wheezes, rhonchi, or rales. Abdomen: Normal bowel sounds. Nontender. No rebound tenderness. Genitalia: Deferred. Back: No midline tenderness. Normal range of motion. Extremities: Normal range of motion. No injury. Skin: Intact. No rash. Warm. No erythema or pallor. Neurologic: No altered sensation. No weakness. Alert and oriented. Psychiatric: No suicidality. No anxiety or depression. No insomnia. Nursing notes and vitals signs are reviewed. Const Vital Signs, click to edit/add: Vital Signs - 24 hr 10/29/24 14:10 Temperature 98.1 F Pulse Rate [Pulse Oximeter] 69 Respiratory Rate 16 Blood Pressure [Right Upper Arm] 137/77 Pulse Oximetry 97 Oxygen Delivery Method Room Air Course Vital Signs Vital signs: Initial Vital Signs Temperature 98.1 F 10/29/24 14:10 Temperature Source Temporal Artery Scan 10/29/24 14:10 Pulse Rate 69 10/29/24 14:10 Respiratory Rate 16 10/29/24 14:10 Blood Pressure 137/77 10/29/24 14:10 Blood Pressure Mean 97 10/29/24 14:10 Blood Pressure Position Sitting 10/29/24 14:10 Pulse Oximetry 97 10/29/24 14:10 Oxygen Delivery Method Room Air 10/29/24 14:10 Vital Signs Temperature 98.1 F 10/29/24 14:10 Pulse Rate 69 10/29/24 14:10 Respiratory Rate 16 10/29/24 14:10 Blood Pressure 137/77 10/29/24 14:10 Pulse Oximetry 97 10/29/24 14:10 Oxygen Delivery Method Room Air 10/29/24 14:10 Temperature 98.1 F 10/29/24 14:10 Pulse Rate 69 10/29/24 14:10 Respiratory Rate 16 10/29/24 14:10 Blood Pressure 137/77 10/29/24 14:10 Pulse Oximetry 97 10/29/24 14:10 Oxygen Delivery Method Room Air 10/29/24 14:10 MDM - Chest Pain MDM Narrative Medical decision making narrative: This patient comes in reporting chest discomfort as described above. This occurred last evening. He hardly has any discomfort currently. He did have some lightheadedness and shortness of breath but he states that he feels some of those symptoms regularly. An EKG is obtained along with troponin and both of these returned with normal findings. He arrives here with normal vital signs. He states that he does have a heart history but also reports ability to get on the treadmill and exercise somewhat vigorously without any symptoms. His chest pain does not appear to be emanating from his heart unless he is having some Prinzmetal's angina symptoms. In any event he does have nitroglycerin and is on other good medications. He is regularly following with his doctors in this regard. He is okay to be discharged home. Lab Data Labs: Lab Results 10/29/24 Range/Units 15:08 WBC 4.73 (4.50-11.00) K/uL RBC 4.90 (4.30-5.90) m/uL Hgb 14.2 (13.5-17.5) gm/dL Hct 41.9 (37.0-53.0) % MCV 86 (80-100) fL MCH 29 (26-34) pg MCHC 34 (32-36) gm/dL RDW Coeff of Hilaria 12.6 (11.5-15.5) % Plt Count 231 (140-440) K/uL Neut % (Auto) 54.7 (42.0-72.0) % Lymph % (Auto) 28.5 (20-44) % [place] % (Auto) 11.6 H (0.0-11.0) % Eos % (Auto) 4.4 (0.0-7.0) % Baso % (Auto) 0.6 (0.0-3.0) % Neut # (Auto) 2.58 (1.7-7.0) K/uL Lymph # (Auto) 1.35 (0.90-2.90) K/uL [place] # (Auto) 0.50 (0.00-0.90) K/UL Eos # (Auto) 0.21 (0.00-0.50) K/uL Baso # (Auto) 0.03 (0.00-0.30) K/uL Abs Immat Gran (auto) 0.01 (0.00-0.30) K/uL Imm/Tot Granulo (auto) 0.2 % Sodium 138 (135-149) mmol/L Potassium 4.3 (3.6-5.1) mmol/L Chloride 101 (96-114) mmol/L Carbon Dioxide 31 (20-32) mmol/L Anion Gap 6 L (7-15) mEq/L BUN 16 (7-30) mg/dL Creatinine 1.0 (0.5-1.5) mg/dL Estimated Creat Clear 86.80 Estimated GFR 88 ml/min Glucose 104 (60-115) mg/dL Calcium 9.1 (8.4-10.6) mg/dL POC Troponin I 0.00 L (0.01-0.04) ng/ml ECG Data Attestation: I personally reviewed and interpreted this ECG as follows: Interpretation: Normal sinus rhythm. Rate is 69 beats per minute. There are no ST or T-wave abnormalities. Discharge Plan Discharge Clinical Impression: Atypical chest pain Patient Disposition: Home, Self-Care Condition: Improved Additional Instructions: Continue current plans. Activity as tolerated. Follow up with MD return if worsening. Prescriptions: No Action aspirin 81 mg tablet,delayed release (DR/EC) 81 mg PO DAILY multivitamin Tablet 1 tab PO QDAY fluticasone propionate 50 mcg/actuation spray,suspension 2 spray intranasal DAILY PRN nitroglycerin 0.4 mg tablet, sublingual 0.4 mg sublingual verapamil 240 mg tablet extended release 240 mg PO DAILY lorazepam [Ativan] 0.5 mg tablet 0.5 mg PO QDAY PRN (Reason: anxiety) Qty: 30 0RF atorvastatin 40 mg tablet 40 mg PO DAILY melatonin 10 mg tablet 10 mg PO HS arginine HCl (L-arginine) 1,000 mg tablet 2,000 mg PO QDAY loratadine 10 mg tablet 10 mg PO QDAY amoxicillin 500 mg capsule 2,000 mg PO Q12H Qty: 12 2RF Rx Instructions: Take 4 caps 1 hour before dental work sildenafil 50 mg tablet 50 mg PO DIRECTED Qty: 18 0RF Rx Instructions: TAKE 1 TAB 1 HR PRIOR TO INTERCOURSE Follow Up/Referrals: Teja Huff MD [Primary Care Provider] - Stand Alone Forms: [facility] Instructions
[2024-10-29 15:40] LABS: Basophils Absolute Auto 0.03 K/uL (0.00-0.30); Basophils Percent Auto 0.6 % (0.0-3.0); Eosinophils Absolute Auto 0.21 K/uL (0.00-0.50); Eosinophils Percent Auto 4.4 % (0.0-7.0); Hematocrit 41.9 % (37.0-53.0); Hemoglobin* 14.2 gm/dL (13.5-17.5); Immature Granulocytes Abs Auto 0.01 K/uL (0.00-0.30); Immature Granulocytes Pct Auto 0.2 %; Lymphocytes Absolute Auto 1.35 K/uL (0.90-2.90); Lymphocytes Percent Auto 28.5 % (20-44); Mean Corpuscular HGB Conc 34 gm/dL (32-36); Mean Corpuscular Hemoglobin 29 pg (26-34); Mean Corpuscular Volume 86 fL (80-100); Monocytes Percent Auto 11.6 % (0.0-11.0); Neutrophils Absolute Auto 2.58 K/uL (1.7-7.0); Neutrophils Percent Auto 54.7 % (42.0-72.0); Platelet Count* 231 K/uL (140-440); RDW Coefficient of Variation % 12.6 % (11.5-15.5); White Blood Count* 4.73 K/uL (4.50-11.00)
[2024-10-29 15:45] LABS: Slide Review Reflex No
[2024-10-29 15:49] LABS: Chloride* 101 mmol/L (96-114); Potassium* 4.3 mmol/L (3.6-5.1); Sodium* 138 mmol/L (135-149)
[2024-10-29 15:52] LABS: Anion Gap 6 mEq/L (7-15); Blood Urea Nitrogen* 16 mg/dL (7-30); Carbon Dioxide* 31 mmol/L (20-32); Estimated Glomerular Filt Rate 88 ml/min
[2024-10-29 15:53] LABS: Calcium* 9.1 mg/dL (8.4-10.6); Glucose* 104 mg/dL (60-115)
== END 2024-10-29 16:54 | disposition home or self-care (01) ==
PROVIDERS: Emergency Provider Emergency Medicine Emergency Medical Services; PCP Family Medicine
DX: R07.89 Other chest pain (principal)
CPT/HCPCS: 36415; 80048; 84484; 85025; 93005; 99284

== ENCOUNTER 2025-05-15 11:03 | Outpatient (CLI) | payer BC, SELFPAY | END 2025-05-15 11:04 | disposition home or self-care (01) | PROVIDERS: PCP Family Medicine; Visit Provider Family Medicine | DX: R07.9 Chest pain, unspecified (principal) | CPT/HCPCS: 85651; 86140 ==

== ENCOUNTER 2025-07-25 11:44 | Outpatient (CLI) | payer BC, SELFPAY | END 2025-07-25 11:45 | disposition home or self-care (01) | LOC: FBOREF 11:45 | PROVIDERS: PCP Family Medicine; Visit Provider Family Medicine | DX: Z12.5 Encounter for screening for malignant neoplasm of prostate (principal) | CPT/HCPCS: G0103 ==